=== PATIENT | female | born 1985 | race Caucasian/White ===

== ENCOUNTER → 2019-05-23 09:46 | Outpatient (BNVA) | payer MEDICAID, SELFPAY | PROVIDERS: Visit Provider Social Worker Clinical | DX: F33.2 Major depressive disorder, recurrent severe without psychotic features (principal); F41.0 Panic disorder [episodic paroxysmal anxiety]; Z63.0 Problems in relationship with spouse or partner | CPT/HCPCS: 90791; H0036 ==

== ENCOUNTER → 2019-06-15 13:10 | Outpatient (BNVA) | payer MEDICAID, SELFPAY | PROVIDERS: PCP Family Medicine; Visit Provider Social Worker Clinical | DX: F33.2 Major depressive disorder, recurrent severe without psychotic features (principal); F41.0 Panic disorder [episodic paroxysmal anxiety]; Z63.0 Problems in relationship with spouse or partner | CPT/HCPCS: 90834 ==

== ENCOUNTER → 2019-07-28 16:40 | Outpatient (BNVA) | payer MEDICAID, SELFPAY | PROVIDERS: PCP Family Medicine; Visit Provider Obstetrics & Gynecology | DX: B37.3 Candidiasis of vulva and vagina (principal); N87.0 Mild cervical dysplasia | CPT/HCPCS: 87210; 88175 ==

== ENCOUNTER → 2019-08-08 15:00 | Outpatient (BNVA) | payer MEDICAID, SELFPAY | PROVIDERS: PCP Family Medicine; Visit Provider Counselor Professional | DX: F32.9 Major depressive disorder, single episode, unspecified (principal); T74.11XA Adult physical abuse, confirmed, initial encounter; T74.91XA Unspecified adult maltreatment, confirmed, initial encounter | CPT/HCPCS: 90834 ==

== ENCOUNTER → 2019-10-05 14:44 | Outpatient (BNVA) | payer MEDICAID, SELFPAY | PROVIDERS: PCP Family Medicine; Visit Provider Psychiatry & Neurology Psychiatry | DX: F60.9 Personality disorder, unspecified (principal); F33.2 Major depressive disorder, recurrent severe without psychotic features; F43.12 Post-traumatic stress disorder, chronic | CPT/HCPCS: 99204 ==

== ENCOUNTER → 2019-11-01 07:43 | Outpatient (BNVA) | payer MEDICAID, SELFPAY | PROVIDERS: PCP Family Medicine; Visit Provider Psychiatry & Neurology Psychiatry | DX: F43.12 Post-traumatic stress disorder, chronic (principal); F33.2 Major depressive disorder, recurrent severe without psychotic features; F60.9 Personality disorder, unspecified | CPT/HCPCS: 99213 ==

== ENCOUNTER → 2019-12-12 08:13 | Outpatient (BNVA) | payer MEDICAID, SELFPAY | PROVIDERS: PCP Family Medicine; Visit Provider Counselor Professional | DX: F43.12 Post-traumatic stress disorder, chronic (principal); F33.2 Major depressive disorder, recurrent severe without psychotic features; F60.9 Personality disorder, unspecified | CPT/HCPCS: 90834 ==

== ENCOUNTER → 2019-12-29 09:13 | Outpatient (BNVA) | payer MEDICAID, SELFPAY | PROVIDERS: PCP Family Medicine; Visit Provider Psychiatry & Neurology Psychiatry | DX: F43.12 Post-traumatic stress disorder, chronic (principal); F33.2 Major depressive disorder, recurrent severe without psychotic features; F60.9 Personality disorder, unspecified | CPT/HCPCS: 99214 ==

== ENCOUNTER → 2020-01-09 10:10 | Outpatient (BNVA) | payer MEDICAID, SELFPAY | PROVIDERS: PCP Family Medicine; Visit Provider Counselor Professional | DX: F43.12 Post-traumatic stress disorder, chronic (principal); F33.2 Major depressive disorder, recurrent severe without psychotic features; F60.9 Personality disorder, unspecified | CPT/HCPCS: 90834 ==

== ENCOUNTER → 2020-01-10 09:36 | Outpatient (BNVA) | payer MEDICAID, SELFPAY | PROVIDERS: PCP Family Medicine; Visit Provider Psychiatry & Neurology Psychiatry | DX: F43.12 Post-traumatic stress disorder, chronic (principal); F33.2 Major depressive disorder, recurrent severe without psychotic features; F60.9 Personality disorder, unspecified | CPT/HCPCS: 99213 ==

== ENCOUNTER → 2020-01-16 08:56 | Outpatient (BNVA) | payer MEDICAID, SELFPAY | PROVIDERS: PCP Family Medicine; Visit Provider Counselor Professional | DX: F60.3 Borderline personality disorder (principal); F33.2 Major depressive disorder, recurrent severe without psychotic features | CPT/HCPCS: 90834 ==

== ENCOUNTER → 2020-02-20 08:12 | Outpatient (BNVA) | payer MEDICAID, SELFPAY | PROVIDERS: PCP Family Medicine; Visit Provider Psychiatry & Neurology Psychiatry | DX: F43.12 Post-traumatic stress disorder, chronic (principal); F33.2 Major depressive disorder, recurrent severe without psychotic features; F60.3 Borderline personality disorder; F17.210 Nicotine dependence, cigarettes, uncomplicated | CPT/HCPCS: 99214 ==

== ENCOUNTER → 2020-03-06 07:40 | Outpatient (BNVA) | payer MEDICAID, SELFPAY | PROVIDERS: PCP Family Medicine; Visit Provider Psychiatry & Neurology Psychiatry | DX: F60.3 Borderline personality disorder (principal); F43.12 Post-traumatic stress disorder, chronic; F33.2 Major depressive disorder, recurrent severe without psychotic features | CPT/HCPCS: 99213 ==

== ENCOUNTER → 2020-03-13 14:05 | Outpatient (BNVA) | payer MEDICAID, SELFPAY | PROVIDERS: PCP Family Medicine; Visit Provider Counselor Professional | DX: F33.2 Major depressive disorder, recurrent severe without psychotic features (principal); F60.3 Borderline personality disorder | CPT/HCPCS: 90834 ==

== ENCOUNTER → 2020-03-20 16:04 | Outpatient (BNVA) | payer MEDICAID, SELFPAY | PROVIDERS: PCP Family Medicine; Visit Provider Counselor Professional | DX: F60.3 Borderline personality disorder (principal); F33.2 Major depressive disorder, recurrent severe without psychotic features | CPT/HCPCS: 90832 ==

== ENCOUNTER → 2020-03-28 15:03 | Outpatient (BNVA) | payer MEDICAID, SELFPAY | PROVIDERS: PCP Family Medicine; Visit Provider Counselor Professional | DX: F60.3 Borderline personality disorder (principal); F33.2 Major depressive disorder, recurrent severe without psychotic features | CPT/HCPCS: 90832 ==

== ENCOUNTER → 2020-04-05 08:08 | Outpatient (BNVA) | payer MEDICAID, SELFPAY | PROVIDERS: PCP Family Medicine; Visit Provider Psychiatry & Neurology Psychiatry | DX: F60.3 Borderline personality disorder (principal); F43.12 Post-traumatic stress disorder, chronic; F33.2 Major depressive disorder, recurrent severe without psychotic features; F41.1 Generalized anxiety disorder | CPT/HCPCS: 99214 ==

== ENCOUNTER → 2020-05-03 10:05 | Outpatient (BNVA) | payer MEDICAID, SELFPAY | PROVIDERS: PCP Family Medicine; Visit Provider Counselor Professional | DX: F60.3 Borderline personality disorder (principal); F33.2 Major depressive disorder, recurrent severe without psychotic features | CPT/HCPCS: 90832 ==

== ENCOUNTER → 2020-06-07 08:14 | Outpatient (BNVA) | payer MEDICAID, SELFPAY | PROVIDERS: PCP Family Medicine; Visit Provider Psychiatry & Neurology Psychiatry | DX: F60.3 Borderline personality disorder (principal); F43.12 Post-traumatic stress disorder, chronic; F33.2 Major depressive disorder, recurrent severe without psychotic features | CPT/HCPCS: 99214 ==

== ENCOUNTER → 2020-06-20 09:19 | Outpatient (BNVA) | payer MEDICAID, SELFPAY | PROVIDERS: PCP Family Medicine; Visit Provider Counselor Professional | DX: F60.3 Borderline personality disorder (principal); F33.2 Major depressive disorder, recurrent severe without psychotic features | CPT/HCPCS: 90832 ==

== ENCOUNTER → 2020-07-17 15:04 | Outpatient (BNVA) | payer MEDICAID, SELFPAY | PROVIDERS: PCP Family Medicine; Visit Provider Counselor Professional | DX: F60.3 Borderline personality disorder (principal); F33.2 Major depressive disorder, recurrent severe without psychotic features | CPT/HCPCS: 90832 ==

== ENCOUNTER → 2020-07-19 07:50 | Outpatient (BNVA) | payer MEDICAID, SELFPAY | PROVIDERS: PCP Family Medicine; Visit Provider Psychiatry & Neurology Psychiatry | DX: F60.3 Borderline personality disorder (principal); F43.12 Post-traumatic stress disorder, chronic; F33.2 Major depressive disorder, recurrent severe without psychotic features | CPT/HCPCS: 99214 ==

== ENCOUNTER → 2020-08-02 14:15 | Outpatient (BNVA) | payer MEDICAID, SELFPAY | PROVIDERS: PCP Family Medicine; Visit Provider Obstetrics & Gynecology | DX: N89.8 Other specified noninflammatory disorders of vagina (principal); R11.0 Nausea; N76.0 Acute vaginitis; B96.89 Other specified bacterial agents as the cause of diseases classified elsewhere | CPT/HCPCS: 87210 ==

== ENCOUNTER → 2020-08-05 16:04 | Outpatient (BNVA) | payer MEDICAID, SELFPAY | PROVIDERS: PCP Family Medicine; Visit Provider Counselor Professional | DX: F60.3 Borderline personality disorder (principal); F33.2 Major depressive disorder, recurrent severe without psychotic features | CPT/HCPCS: 90834 ==

== ENCOUNTER → 2020-08-30 10:47 | Outpatient (BNVA) | payer MEDICAID, SELFPAY | PROVIDERS: PCP Family Medicine; Visit Provider Psychiatry & Neurology Psychiatry | DX: F60.3 Borderline personality disorder (principal); F43.12 Post-traumatic stress disorder, chronic; F33.2 Major depressive disorder, recurrent severe without psychotic features | CPT/HCPCS: 99214 ==

== ENCOUNTER → 2020-10-01 11:03 | Outpatient (BNVA) | payer MEDICAID, SELFPAY | PROVIDERS: PCP Family Medicine; Visit Provider Psychiatry & Neurology Psychiatry | DX: F60.3 Borderline personality disorder (principal); F43.12 Post-traumatic stress disorder, chronic; F33.2 Major depressive disorder, recurrent severe without psychotic features | CPT/HCPCS: 99214 ==

== ENCOUNTER → 2021-04-02 07:55 | Outpatient (BNVA) | payer MEDICAID, SELFPAY | PROVIDERS: PCP Family Medicine; Visit Provider Psychiatry & Neurology Psychiatry | DX: F33.2 Major depressive disorder, recurrent severe without psychotic features (principal); F43.12 Post-traumatic stress disorder, chronic; F60.3 Borderline personality disorder | CPT/HCPCS: 99213 ==

== ENCOUNTER → 2021-08-07 10:33 | Outpatient (BNVA) | payer MEDICAID, SELFPAY | PROVIDERS: PCP Family Medicine; Visit Provider Psychiatry & Neurology Psychiatry | DX: F33.2 Major depressive disorder, recurrent severe without psychotic features (principal); F43.12 Post-traumatic stress disorder, chronic; F60.3 Borderline personality disorder | CPT/HCPCS: 99214 ==

== ENCOUNTER → 2021-11-05 12:06 | Outpatient (BNVA) | payer MEDICAID, SELFPAY | PROVIDERS: PCP Family Medicine; Visit Provider Psychiatry & Neurology Psychiatry | DX: F33.2 Major depressive disorder, recurrent severe without psychotic features (principal); F43.12 Post-traumatic stress disorder, chronic; F60.3 Borderline personality disorder | CPT/HCPCS: 99213 ==

== ENCOUNTER 2022-12-22 23:04 | Emergency (ER) | payer BC, MEDICAID, SELFPAY ==
[2022-12-22 23:13] VITALS: BP 121/68; PULSE 99; RESP 16; TEMP 37; O2SAT 96; BMI 28.1
[2022-12-23 01:27] LABS: Add Urine Culture? No; Add Urine Microscopic? YES; Bacteria Urine 2+ /hpf; Bilirubin Urine Neg (Negative); Blood Urine Trace (Negative); Calcium Oxalate Crystals Urine 0-4 /hpf; Glucose Urine UA Norm (Normal); Ketones Urine Negative (Negative); Leukocyte Esterase Urine Trace (Negative); Mucus Urine 2+ /hpf; Nitrate Urine Negative (Negative); Protein Urine Neg (Negative); RBC Urine 0-4 /hpf (0-2); Specific Gravity, Urine 1.025 (1.005-1.030); Urine Appearance Clear (CLEAR); Urine Color Yellow (Yellow); Urobilinogen Urine Neg (Negative); WBC Urine 0-4 /hpf (0-5); pH Urine 5 (5-7)
[2022-12-23] MEDS: ketorolac 30 mg/mL INJ IM (02:49)
[2022-12-23] MEDS: orphenadrine 30 mg/mL Inj 2 mL 60 MG IM (02:50)
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
[2022-12-23 02:57] VITALS: BP 121/68; PULSE 99; RESP 16; TEMP 37; O2SAT 96
== END 2022-12-23 02:57 | disposition home or self-care (01) ==
PROVIDERS: Emergency Provider Emergency Medicine; PCP Family Medicine
DX: S16.1XXA Strain of muscle, fascia and tendon at neck level, initial encounter (principal); S29.012A Strain of muscle and tendon of back wall of thorax, initial encounter; J45.909 Unspecified asthma, uncomplicated; Z79.899 Other long term (current) drug therapy; Z87.891 Personal history of nicotine dependence; Y04.2XXA Assault by strike against or bumped into by another person, initial encounter
CPT/HCPCS: 81001; 96372; 99284; J1885; J2360

== ENCOUNTER 2024-01-30 21:38 | Inpatient (IN) | payer BC, MEDICAID, SELFPAY ==
[2024-01-30 21:44] VITALS: PULSE 123; RESP 32; TEMP 36.7; O2SAT 93
--- NOTE | 2024-01-30 21:52 | XRR_ITS ---
PROCEDURE INFORMATION: Exam: XR Chest Exam date and time: 01/30/2024 10:11 PM Age: 39 years old Clinical indication: Cough and shortness of breath; Patient HX: Cough with SOB. History of asthma. TECHNIQUE: Imaging protocol: Radiologic exam of the chest. Views: 1 view. COMPARISON: CR XR chest 2V* [id number] 10/07/2017 6:35 PM FINDINGS: Lungs: No definitive consolidation. Mild increased retrocardiac opacity may be artifactual. Pleural spaces: No pleural effusion or pneumothorax. Heart/Mediastinum: The cardiomediastinal silhouette is within normal limits. Bones/joints: No acute osseous abnormalities are seen. XR/XR chest 1V portable [id number] IMPRESSION: Mild increased retrocardiac opacity may be artifactual. Developing consolidation could have this appearance. Follow-up as indicated.
[2024-01-30 21:58] VITALS: PULSE 106; RESP 28; O2SAT 97
[2024-01-30] MEDS: ipratropium-albuterol 3 mL Neb INHALATION (21:58)
--- NOTE | 2024-01-30 22:10 | ECG_ITS ---
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 Measurements Intervals [place] Rate: 106 P: 78 [place]: 137 QRS: 74 QRSD: 81 T: 52 QT: 317 QTc: 422 Interpretive Statements SINUS TACHYCARDIA POSSIBLE LEFT ATRIAL ENLARGEMENT [-0.1mV P-WAVE IN V1/V2] MINIMAL ST DEPRESSION [0.025+ mV ST DEPRESSION] No previous ECG available for comparison Electronically Signed On 01-31-2024 16:07:27 CDT by Babak Nagy M.D. [id number]
--- NOTE | 2024-01-30 22:10 | ECG_ITS ---
[facility] Test Date: 2024-01-30 Pat Name: Eladia Gonzalez Department: Room: Gender: Female General Administrator: : 1985 Requested By: Poncho Bai Order Number: [id number] Reading MD: Measurements Intervals [place] Rate: 106 P: 78 [place]: 137 QRS: 74 QRSD: 81 T: 52 QT: 317 QTc: 422 Interpretive Statements SINUS TACHYCARDIA POSSIBLE LEFT ATRIAL ENLARGEMENT [-0.1mV P-WAVE IN V1/V2] MINIMAL ST DEPRESSION [0.025+ mV ST DEPRESSION] ABNORMAL RHYTHM ECG No previous ECG available for comparison [id number]
[2024-01-30] MEDS: methylPREDNISolone sod succ 125 mg/2 mL INJ IVP (22:13)
[2024-01-30] MEDS: ondansetron 2 mg/ML SDV 2 mL 4 MG IVP (22:13)
[2024-01-30] MEDS: morphine 4 mg/mL SDV 1 mL IVP (22:13)
[2024-01-30] MEDS: magnesium sulfate premix 2 GM/50 ML PIGGYBACK IV (22:16)
[2024-01-30 22:23] LABS: Basophils # 0.1 10^3/uL (0.0-0.1); Basophils % 0.4 %; Eosinophils # 0.2 10^3/uL (0.0-0.8); Hematocrit 39.6 % (36-47); Lymphocytes # 3.3 10^3/uL (0.8-4.8); Lymphocytes % 22.2 %; Mean Corpuscular HGB Conc 32.3 g/dL (30-55); Mean Corpuscular Hemoglobin 28.1 pg (27-33); Mean Corpuscular Volume 86.8 fl (85-98); Mean Platelet Volume 10.5 fL (7.4-10.4); Monocytes # 0.9 10^3/uL (0.2-0.9); Monocytes % 6.2 %; Neutrophils # 10.28 10^3/uL (1.8-7.7); Neutrophils % 69.7 %; Nucleated Red Blood Cells % 0 %; Platelet Count 305 10^3/cmm (157-399); Red Blood Count 4.56 10^6/uL (3.85-5.65); Red Cell Distribution Width 14.6 % (12.1-15.1); White Blood Count 14.76 10^3/uL (3.29-11.43)
[2024-01-30 22:28] VITALS: BP 115/58; PULSE 92; RESP 22; O2SAT 97
--- NOTE | 2024-01-30 22:36 | W.ED.SOB ---
HPI - SOB/Dyspnea General: Chief Complaint: Shortness of Breath/Dyspnea Stated Complaint: sob Time Seen by Provider: 01/30/24 22:25 History of Present Illness: HPI Narrative: 39-year-old female evidently with a history of eosinophilic asthma. She has not had her normal injections for this in quite some time. She presents with 2 to 3 days of worsening shortness of breath, which is much worse tonight. She is wheezing, and in respiratory distress on presentation. She is quite anxious as well. She denies fever. Related Data Home Medications Medication Instructions Recorded Confirmed albuterol sulfate 90 mcg/actuation 2 puff inhalation 6XD 05/23/19 10/16/23 aerosol inhaler (ProAir HFA) tiotropium bromide 1.25 2 puff inhalation BID 10/05/19 10/16/23 mcg/actuation mist for inhalation (Spiriva Respimat) fluticasone 500 mcg-salmeterol 50 1 inh inhalation BID 08/02/20 10/16/23 mcg/dose blistr powdr for inhalation (Advair Diskus) CPAP 04/01/21 10/16/23 dupilumab 300 mg/2 mL subcutaneous mg SUBCUT .Twice Monthly 04/01/21 10/16/23 pen injector (Dupixent) oxybutynin chloride 5 mg tablet 5 mg PO DAILY 08/07/21 10/16/23 propranolol 20 mg tablet 10 mg PO BID 08/07/21 10/16/23 Previous Rx's Medication Instructions Recorded promethazine 25 mg tablet 25 mg PO BID #14 tabs 08/02/20 duloxetine 60 mg capsule,delayed 60 mg PO DAILY #30 caps 08/07/21 release mirtazapine 7.5 mg tablet 7.5 mg PO .HS #30 tabs 08/07/21 hydroxyzine HCl 50 mg tablet 50 mg PO QID PRN anxiety #120 tabs 11/05/21 lamotrigine 100 mg tablet 100 mg PO BID #60 tabs 11/05/21 prazosin 5 mg capsule 5 mg PO .HS #30 caps 11/05/21 meloxicam 7.5 mg tablet 7.5 mg PO BID #14 tabs 12/23/22 orphenadrine citrate 100 mg 100 mg PO BID #14 tabs 12/23/22 tablet,extended release azithromycin 250 mg tablet See Rx Instructions PO .COMPLEX #6 06/01/24 (Zithromax Z-Enrique) tabs ibuprofen 800 mg tablet 800 mg PO Q8H PRN pain #30 tabs 10/16/23 prednisone 20 mg tablet 60 mg (3 x 20 mg) PO DAILY 5 days 10/16/23 #15 tabs Allergies Allergy/AdvReac Type Severity Reaction Status Date / Time amoxicillin Allergy Intermediate ADR-Vomitin Verified 01/30/24 22:20 g clindamycin Allergy Intermediate ALGY-Hives Verified 01/30/24 22:20 diphenhydramine Allergy Intermediate ALGY-Hives Verified 01/30/24 22:20 escitalopram Allergy Intermediate ADR-Dizzine Verified 01/30/24 22:20 ss fluoxetine [From Prozac] Allergy Intermediate Noxious Verified 01/30/24 22:20 gabapentin Allergy Intermediate Noxious Verified 01/30/24 22:20 Penicillins Allergy Intermediate ADR-Vomitin Verified 01/30/24 22:20 g Sulfa (Sulfonamide Allergy Intermediate ALGY-Hives Verified 01/30/24 22:20 Antibiotics) PFSH ED PFSH: Medical History Borderline personality disorder Post-traumatic stress disorder, chronic Major depressive disorder, recurrent severe without psychotic features Unspecified personality disorder Blood type O- Cervical intraepithelial neoplasia I 07/2019: Negative with negative HR HPV. 07/20/2018: NILM/negative HR HPV 11/05/2017: Colposcopy with ECC. Path showed JUDIT-1. 09/24/2017: ASCUS with positive HR HPV. 03/18/2017: ASCUS with positive HR HPV. 09/21/2016: Colposcopy with negative findings. No biopsies. 03/09/2016: Low-grade IVETH (Dr. Walter). 03/08/2014: Negative for intraepithelial lesion or malignancy. 04/2011: LEEP performed in [place], [place]. Reports has a history of abnormal Paps. Asthma Surgical History History of section, low transverse (01/29/17) Repeat LTCS. Performed by Dr. Taveras at [facility] in [place], [place]. History of section, low transverse (01/25/14) Nonreassuring heart tones. Performed by Dr. Washington at [facility] in [place], [place]. Documented low transverse incision of the uterus with a 2 layer closure. History of loop electrical excision procedure (LEEP) (~04/2011) Preformed in [place], [place]. Normal per patient. Family History Grandmother Breast cancer maternal Diabetes maternal Mother Hypertension Sister Thyroid disease Cervical cancer Grandfather , Maternal. age 80 Lung cancer Social History Smoking and tobacco/nicotine status: former use of tobacco/nicotine Quit status (tobacco/nicotine): has quit using Year quit tobacco: 2021 Second hand smoke exposure: Yes Alcohol intake: current Alcohol intake frequency: few times a month Substance/Drug Use: never Physical Exam Const: GENERAL APPEARANCE: cooperative, in distress, anxious and ill appearing (Mildly); not frail appearing HENMT: COMMON NORMALS: normocephalic, atraumatic and Normal external nose present HEAD & SCALP: normocephalic and atraumatic FACE & SINUS: normal facial exam and face symmetric NOSE: Normal external nose present Eye: COMMON NORMALS: Equal, round and reactive pupils present and EOMs intact bilaterally PUPIL: Yes Equal, round and reactive pupils present Neck/C-Spine: GENERAL: Yes trachea midline Chest: CHEST: Yes Symmetrical chest wall rise Resp: EFFORT & INSPECTION: No able to speak in complete sentences, Yes labored, Yes Actively coughing and Yes retractions AUSCULTATION: wheezes and diminished lung sounds Cardio: COMMON NORMALS: regular rhythm RATE: tachycardic RHYTHM: regular rhythm GI: COMMON NORMALS: Normal to inspection, nondistended, normoactive bowel sounds present Extremity: COMMON NORMALS: no pedal edema Neuro: WILLIAM COMA SCALE: document GCS findings William coma scale eye opening: Spontaneous William coma scale verbal response: Orientated William coma scale motor response: Obey commands William coma scale total score: 15 SENSORY EXAM: Yes extremities (intact) Psych: COMMON NORMALS: speech normal SPEECH: Yes normal speech Course Vital Signs: Vital signs: Vital Signs Temperature 98.1 F 01/30/24 21:44 Pulse Rate 94 01/31/24 01:06 Respiratory Rate 22 H 01/31/24 00:42 Blood Pressure 116/94 01/31/24 01:06 Pulse Oximetry 91 01/31/24 01:06 Oxygen Delivery Me thod Nasal Cannula 01/31/24 00:39 Oxygen Flow Rate 3 01/31/24 00:39 MDM - SOB/Dyspnea Medical Decision Making Respiratory status is much improved after DuoNeb treatment here, Solu-Medrol, magnesium, and morphine for air hunger/anxiety. She is on 3 L, currently satting 97%. She is normotensive. Chest x-ray fails to reveal infiltrate. No effusions or pneumothorax. Currently patient is oxygen down to 2 L. Saturations fell to 90% with increased respirations and work of breathing. She was given another albuterol treatment with some improvement. Potassium is 3.1, which is repleted. Chest x-ray reveals likely artifactual retrocardiac opacity. Her lactic acid is 3. BMP is not remarkable. Urine drug screen is positive for amphetamines. She was given opiates on arrival for air hunger. Urinalysis shows small amount of hematuria. Given the fact that she presented to an outside hospital within the last 24 hours, and had to return, is requiring oxygen now, and has had multiple interventions for bronchospasm and is still wheezing, she will be observed. Hospitalist is aware and will see the patient Lab Data 01/30/24 22:05 01/30/24 22:05 Labs/Radiology: Radiology Impressions Chest X-Ray 01/30/24 21:52 IMPRESSION: Mild increased retrocardiac opacity may be artifactual. Developing consolidation could have this appearance. Follow-up as indicated. Laboratory Results WBC 14.76 10^3/uL (3.29-11.43) H 01/30/24 22:05 RBC 4.56 10^6/uL (3.85-5.65) 01/30/24 22:05 Hgb 12.80 g/dL (11.27-16.99) 01/30/24 22:05 Hct 39.6 % (36-47) 01/30/24 22:05 MCV 86.8 fl (85-98) 01/30/24 22:05 MCH 28.1 pg (27-33) 01/30/24 22:05 MCHC 32.3 g/dL (30-55) 01/30/24 22:05 RDW 14.6 % (12.1-15.1) 01/30/24 22:05 Plt Count 305 10^3/cmm (157-399) 01/30/24 22:05 MPV 10.5 fL (7.4-10.4) H 01/30/24 22:05 Neut % (Auto) 69.7 % 01/30/24 22:05 Lymph % (Auto) 22.2 % 01/30/24 22:05 [place] % (Auto) 6.2 % 01/30/24 22:05 Eos % (Auto) 1.0 % 01/30/24 22:05 Baso % (Auto) 0.4 % 01/30/24 22:05 Neut # (Auto) 10.28 10^3/uL (1.8-7.7) H 01/30/24 22:05 Lymph # (Auto) 3.3 10^3/uL (0.8-4.8) 01/30/24 22:05 [place] # (Auto) 0.9 10^3/uL (0.2-0.9) 01/30/24 22:05 Eos # (Auto) 0.2 10^3/uL (0.0-0.8) 01/30/24 22:05 Baso # (Auto) 0.1 10^3/uL (0.0-0.1) 01/30/24 22:05 Nucleated RBC % (auto) 0 % 01/30/24 22:05 Nucleated RBCs # 0.0 /100WBC 01/30/24 22:05 Sodium 141 mmol/L (136-145) 01/30/24 22:05 Potassium 3.1 mmol/L (3.5-5.1) L 01/30/24 22:05 Chloride 101 mmol/L (98-107) 01/30/24 22:05 Carbon Dioxide 28 mmol/L (22-29) 01/30/24 22:05 Anion Gap 15.1 (5-19) 01/30/24 22:05 BUN 11 mg/dL (6-20) 01/30/24 22:05 Creatinine 0.7 mg/dL (0.5-0.9) 01/30/24 22:05 GFR Calculation 93.2 mL/min (90-130) 01/30/24 22:05 Glucose 94 mg/dL (65-115) 01/30/24 22:05 Calculated Osmolality 291 mOsm/kg (285-295) 01/30/24 22:05 Lactic Acid 3.0 mmol/L (0.5-2.2) H 01/30/24 22:05 Calcium 9.0 mg/dL (8.5-10.5) 01/30/24 22:05 Total Bilirubin 0.2 mg/dL (0.15-1.2) 01/30/24 22:05 AST 17 U/L (0-32) 01/30/24 22:05 ALT 16 U/L (0-33) 01/30/24 22:05 Alkaline Phosphatase 85 U/L (35-105) 01/30/24 22:05 NT-Pro-B Natriuret Pep 274 pg/mL (0-125) H 01/30/24 22:05 Total Protein 7.2 g/dL (6.6-8.7) 01/30/24 22:05 Albumin 4.5 g/dL (3.5-5.2) 01/30/24 22:05 Globulin 2.7 g/dL (1.3-4.6) 01/30/24 22:05 Urine Color Yellow (Yellow) 01/30/24 22:52 Urine Appearance Slightly cloudy (CLEAR) 01/30/24 22:52 Urine pH 5 (5-7) 01/30/24 22:52 Ur Specific [place] 1.015 (1.005-1.030) 01/30/24 22:52 Urine Protein Neg (Negative) 01/30/24 22:52 Urine Glucose (UA) Norm (Normal) 01/30/24 22:52 Urine Ketones Negative (Negative) 01/30/24 22:52 Urine Blood Neg (Negative) 01/30/24 22:52 Urine Nitrate Positive (Negative) A 01/30/24 22:52 Urine Bilirubin Neg (Negative) 01/30/24 22:52 Urine Urobilinogen Norm mg/dL (Negative) 01/30/24 22:52 Ur Leukocyte Esterase Trace (Negative) H 01/30/24 22:52 Urine RBC 10-15 /hpf (0-2) H 01/30/24 22:52 Urine WBC 0-4 /hpf (0-5) H 01/30/24 22:52 Ur Squamous Epith Cells 0-4 /hpf (0-5) H 01/30/24 22:52 Amorphous Sediment Not Reportable 01/30/24 22:52 Urine Bacteria 2+ /hpf (NONE) H 01/30/24 22:52 Urine Opiates Screen Positive ng/mL (Negative) H 01/30/24 22:52 Ur Barbiturates Screen Negative ng/mL (Negative) 01/30/24 22:52 Ur Phencyclidine Scrn Negative ng/mL (Negative) 01/30/24 22:52 Ur Amphetamines Screen Positive ng/mL (Negative) H 01/30/24 22:52 U Benzodiazepines Scrn Negative ng/mL (Negative) 01/30/24 22:52 Urine Cocaine Screen Negative ng/mL (Negative) 01/30/24 22:52 U Marijuana (THC) Screen Negative ng/mL (Negative) 01/30/24 22:52 Coronavirus (PCR) Negative (Negative) 01/30/24 22:05 Influenza A (PCR) Negative (Negative) 01/30/24 22:05 Influenza Type B (PCR) Negative (Negative) 01/30/24 22:05 RSV (PCR) Negative (Negative) 01/30/24 22:05 All radiology interpretation(s) finalized by discharge Discharge Plan Discharge Patient Disposition: Placed in Observation Admit Provider: Richardson Montesinos Clinical Impression: Acute asthma exacerbation, Acute hypoxemic respiratory failure Coding Level of Care Code ED Rn Baby for Elo Foote
[2024-01-30 22:51] LABS: Alanine Aminotransferase 16 U/L (0-33); Albumin Level 4.5 g/dL (3.5-5.2); Alkaline Phosphatase 85 U/L (35-105); Anion Gap 15.1 (5-19); Aspartate Amino Transferase 17 U/L (0-32); Blood Urea Nitrogen 11 mg/dL (6-20); Carbon Dioxide 28 mmol/L (22-29); Chloride 101 mmol/L (98-107); Creatinine Clr Calc Pharmacy 109.9895; Globulin 2.7 g/dL (1.3-4.6); Glomerular Filtration Rate 93.2 mL/min (90-130); Glucose 94 mg/dL (65-115); NT Pro B Type Natriuretic Pept 274 pg/mL (0-125); Osmolality Calculated 291 mOsm/kg (285-295); Potassium 3.1 mmol/L (3.5-5.1); Sodium 141 mmol/L (136-145); Total Bilirubin 0.2 mg/dL (0.15-1.2); Total Protein 7.2 g/dL (6.6-8.7)
[2024-01-30 23:07] LABS: Covid PCR NEGATIVE (Negative); Influenza A NEGATIVE (Negative); Influenza B NEGATIVE (Negative); Respiratory Syncytial Virus Ce NEGATIVE (Negative)
[2024-01-30 23:09] LABS: Bilirubin Urine Neg (Negative); Blood Urine Neg (Negative); Glucose Urine UA Norm (Normal); Ketones Urine Negative (Negative); Leukocyte Esterase Urine Trace (Negative); Nitrate Urine Positive (Negative); Protein Urine Neg (Negative); Specific Gravity, Urine 1.015 (1.005-1.030); Urine Appearance Slightly Cloudy (CLEAR); Urine Color Yellow (Yellow); Urobilinogen Urine Norm (Negative); pH Urine 5 (5-7)
[2024-01-30 23:10] LABS: Add Urine Culture? Yes; Bacteria Urine 2+ /hpf; Squamous Epithelial Cell Urine 0-4 /hpf (0-5); WBC Urine 0-4 /hpf (0-5)
[2024-01-30 23:13] VITALS: BP 114/51; PULSE 89; RESP 20; O2SAT 94
[2024-01-30] MEDS: albuterol 2.5 mg/3 mL Neb INHALATION (23:22)
[2024-01-30] MEDS: potassium chloride ER 20 mEq Tablet PO (23:22)
[2024-01-30 23:23] VITALS: PULSE 105; RESP 24; O2SAT 97
[2024-01-30 23:50] LABS: Amphetamines Screen Urine Positive (Negative); Barbiturates Screen Urine Negative (Negative); Benzodiazepines Screen Urine Negative (Negative); Cocaine Screen Urine Negative (Negative); Opiate Screen Urine Positive (Negative); PCP Screen Urine Negative (Negative); THC Screen Urine Negative (Negative)
--- NOTE | 2024-01-30 23:55 | P.HP_ITS ---
Providers/Chief Complaint 2 Primary Care Provider: Antonia Avila DO Chief Complaint: sob History of Present Illness Eladia Gonzalez is a 39 year old female with a past medical history significant for asthma, borderline personality disorder, posttraumatic stress disorder, major depressive disorder, and multiple other comorbidities who presents emergency department with shortness of breath. Patient reports onset 3 days ago. She endorses associated cough and chest tightness. Exertion worsens symptoms. Rest improves. She reports she was seen at outside emergency department last night for similar complaints. Upon presentation to the ER, she was found to be in respiratory distress. Vitals were significant for tachycardia and tachypnea. Patient found to be in respiratory distress on physical exam with diffuse wheezing. Per ED provider, patient requiring 2 to 3 L of oxygen. She reports a history of prior asthma. She was on Dupixent but has been off of it for almost a year due to issues obtaining the medication. She has a history of smoking menthol cigarettes. She reports that she is quit smoking. She denies smoking any substances. Her UDS is positive for opiates and amphetamines. Chest x-ray was concerning for retrocardiac opacity. Review of Systems 2 Narrative: A complete review of systems was obtained and is negative except as stated in HPI. Medications/Allergies Home Medications Medication Instructions Recorded Confirmed Last Taken Type albuterol sulfate 90 mcg/actuation 2 puff inhalation 6XD 05/23/19 10/16/23 Unknown History aerosol inhaler (ProAir HFA) tiotropium bromide 1.25 2 puff inhalation BID 10/05/19 10/16/23 Unknown History mcg/actuation mist for inhalation (Spiriva Respimat) fluticasone 500 mcg-salmeterol 50 1 inh inhalation BID 08/02/20 10/16/23 Unknown History mcg/dose blistr powdr for inhalation (Advair Diskus) promethazine 25 mg tablet 25 mg PO BID #14 tabs 08/02/20 10/16/23 Unknown Rx CPAP 04/01/21 10/16/23 Unknown History dupilumab 300 mg/2 mL subcutaneous mg SUBCUT .Twice Monthly 04/01/21 10/16/23 Unknown History pen injector (Dupixent) duloxetine 60 mg capsule,delayed 60 mg PO DAILY #30 caps 08/07/21 10/16/23 Unknown Rx release mirtazapine 7.5 mg tablet 7.5 mg PO .HS #30 tabs 08/07/21 10/16/23 Unknown Rx oxybutynin chloride 5 mg tablet 5 mg PO DAILY 08/07/21 10/16/23 Unknown History propranolol 20 mg tablet 10 mg PO BID 08/07/21 10/16/23 Unknown History hydroxyzine HCl 50 mg tablet 50 mg PO QID PRN anxiety #120 tabs 11/05/21 10/16/23 Unknown Rx lamotrigine 100 mg tablet 100 mg PO BID #60 tabs 11/05/21 10/16/23 Unknown Rx prazosin 5 mg capsule 5 mg PO .HS #30 caps 11/05/21 10/16/23 Unknown Rx meloxicam 7.5 mg tablet 7.5 mg PO BID #14 tabs 12/23/22 10/16/23 Unknown Rx orphenadrine citrate 100 mg 100 mg PO BID #14 tabs 12/23/22 10/16/23 Unknown Rx tablet,extended release azithromycin 250 mg tablet See Rx Instructions PO .COMPLEX #6 10/16/23 10/16/23 Unknown Rx (Zithromax Z-Enrique) tabs ibuprofen 800 mg tablet 800 mg PO Q8H PRN pain #30 tabs 10/16/23 10/16/23 Unknown Rx prednisone 20 mg tablet 60 mg (3 x 20 mg) PO DAILY 5 days 10/16/23 10/16/23 Unknown Rx #15 tabs Allergies Allergy/AdvReac Type Severity Reaction Status Date / Time amoxicillin Allergy Intermediate ADR-Vomitin Verified 01/30/24 22:20 g clindamycin Allergy Intermediate ALGY-Hives Verified 01/30/24 22:20 diphenhydramine Allergy Intermediate ALGY-Hives Verified 01/30/24 22:20 escitalopram Allergy Intermediate ADR-Dizzine Verified 01/30/24 22:20 ss fluoxetine [From Prozac] Allergy Intermediate Noxious Verified 01/30/24 22:20 gabapentin Allergy Intermediate Noxious Verified 01/30/24 22:20 Penicillins Allergy Intermediate ADR-Vomitin Verified 01/30/24 22:20 g Sulfa (Sulfonamide Allergy Intermediate ALGY-Hives Verified 01/30/24 22:20 Antibiotics) PFSH Acute 2 PFSH: Medical History Borderline personality disorder Post-traumatic stress disorder, chronic Major depressive disorder, recurrent severe without psychotic features Unspecified personality disorder Blood type O- Cervical intraepithelial neoplasia I 07/2019: Negative with negative HR HPV. 07/20/2018: NILM/negative HR HPV 11/05/2017: Colposcopy with ECC. Path showed JUDIT-1. 09/24/2017: ASCUS with positive HR HPV. 03/18/2017: ASCUS with positive HR HPV. 09/21/2016: Colposcopy with negative findings. No biopsies. 03/09/2016: Low-grade IVETH (Dr. Walter). 03/08/2014: Negative for intraepithelial lesion or malignancy. 04/2011: LEEP performed in [place], [place]. Reports has a history of abnormal Paps. Asthma Surgical History History of section, low transverse (01/29/17) Repeat LTCS. Performed by Dr. Taveras at [facility] in [place], [place]. History of section, low transverse (01/25/14) Nonreassuring heart tones. Performed by Dr. Washington at [facility] in [place], [place]. Documented low transverse incision of the uterus with a 2 layer closure. History of loop electrical excision procedure (LEEP) (~04/2011) Preformed in [place], [place]. Normal per patient. Family History Grandmother Breast cancer maternal Diabetes maternal Mother Hypertension Sister Thyroid disease Cervical cancer Grandfather , Maternal. age 80 Lung cancer Social History Smoking and tobacco/nicotine status: former use of tobacco/nicotine Quit status (tobacco/nicotine): has quit using Year quit tobacco: 2021 Second hand smoke exposure: Yes Alcohol intake: current Alcohol intake frequency: few times a month Substance/Drug Use: never Vitals/I&O/Wt Last Vital Signs Temp 98.1 F 01/30/24 21:44 Pulse 105 H 01/30/24 23:23 Resp 24 H 01/30/24 23:23 BP 114/51 01/30/24 23:13 Pulse Ox 97 01/30/24 23:23 O2 Del Method Nasal Cannula 01/30/24 23:23 O2 Flow Rate 2 01/30/24 23:23 01/30/24 01/30/24 01/31/24 14:59 22:59 06:59 Intake Total 50 / 50 Balance 50 / 50 Weight last 48 hrs Weight 79.379 kg Physical Exam 2 Narrative: General: Patient is awake. In moderate to severe respiratory distress. Head: Normocephalic. Atraumatic. EOM intact. Neck: No JVD. Cardiovascular: Tachycardic. No gallops. No murmurs. Lungs: Poor air movement throughout bilateral lung gunn. Diffuse wheezing. Cough present. No crackles. No rales. In respiratory distress. Using accessory muscles. Skin: No jaundice. No rashes. Abdomen: Normal bowel sounds, abdomen soft and nontender. Genito Urinary: Genital exam not performed since complaints not related. Rectal: Rectal exam not performed since no symptoms indicated blood loss. Extremities: No cyanosis or clubbing. Musculoskeletal: No swollen or erythematous joints. Neurological: Moves all 4 extremities. No myoclonus. Data 01/30/24 22:05 01/30/24 22:05 Micro: Microbiology 01/30/24 22:18 Blood Culture - Preliminary Blood SPECIMEN COLLECTED 01/30/24 22:05 Blood Culture - Preliminary Blood SPECIMEN COLLECTED A&P Assessment and plan (1) Acute asthma exacerbation: Acute asthma exacerbation 2/2 suspected left-sided community acquired pneumonia CXR w/ retrocardiac opacity Start Solumedrol Start ceftriaxone and azithromycin Check procal Sputum culture Encourage pullmonary toilet Supportive care (2) Urinary tract infection: Urinalysis consistent with acute complicated UTI Follow urine culture Start ceftriaxone (3) Hypokalemia: Status post replacement in ED Repeat electrolytes in AM (4) Major depressive disorder, recurrent severe without psychotic features: Continue home medications Start ativan PRN for severe anxiety (5) Polysubstance abuse: UDS positive for opioids and amphetamines Would benefit from cessation Plan DVT ppx: Lovenox Code status: Full Code Attestations 2 Medical Necessity Statement*: Patient presents with shortness of breath, found to have acute asthma exacerbation requiring oxygen, community acquired pneumonia and acute complicated UTI with expected hospitalization not cross two midnights for IV steroids, IV antibiotics, breathing treatments, respiratory support and supportive care. Coding Level of Care Code Acute Code for Chg Fwd Diagnoses Acute asthma exacerbation J45.901 Urinary tract infection N39.0 Hypokalemia E87.6 Major depressive disorder, recurrent severe without psychotic features F33.2 Polysubstance abuse F19.10
[2024-01-31] VITALS (17 sets, daily range): BP systolic 90–124; BP diastolic 48–94; PULSE 55–121; RESP 15–22; TEMP 36.6–36.9; O2SAT 90–96; BMI 27.6
[2024-01-31 00:08] LABS: Reflex Lactate Order REFLEX LACTIC ORDERD
[2024-01-31] MEDS: HYDROmorphone 1 mg/mL INJ 1 mL IVP (00:42)
[2024-01-31 01:18] LABS: Lactic Acid level (Lactate) 1.8 mmol/L (0.5-2.2)
[2024-01-31] MEDS: prazosin 5 mg Capsule PO (01:46)
[2024-01-31] MEDS: cefTRIAXone 1,000 mg SDV 1000 MG IVP (01:46)
[2024-01-31] MEDS: mirtazapine 15 mg Tablet 7.5 MG PO ×2 (01:46→20:45)
[2024-01-31] MEDS: LORazepam 1 mg Tablet PO (01:46)
[2024-01-31] MEDS: azithromycin 500 MG in sodium chloride 0.9% 250 ML 250 MG IV (02:05)
[2024-01-31 02:59] LABS: Procalcitonin 0.06 ng/mL (0-0.5)
[2024-01-31] MEDS: methylPREDNISolone sod succ 40 mg/mL INJ IVP ×3 (03:02→20:45)
[2024-01-31] MEDS: ondansetron 2 mg/ML SDV 2 mL 4 MG IVP (03:02)
[2024-01-31] MEDS: ipratropium-albuterol 3 mL Neb INHALATION ×6 (04:34→23:37)
[2024-01-31] MEDS: enoxaparin 40 mg/0.4 mL Syringe SUBCUT (05:26)
--- NOTE | 2024-01-31 07:59 | P.PN_ITS ---
Subjective 2 Subjective: History and physical reviewed. Patient sleeping when I went in the room. I visited with her fianc? regarding her illness as well, and reported to them that I would be back when she was more awake. Medications: Reviewed: Yes Vitals/I&O/Wt Last Vital Signs Temp 98.2 F 01/31/24 04:00 Pulse 55 L 01/31/24 07:30 Resp 20 H 01/31/24 07:30 BP 123/61 01/31/24 04:00 Pulse Ox 90 01/31/24 07:30 O2 Del Method Room Air 01/31/24 07:30 O2 Flow Rate 2 01/31/24 04:37 01/30/24 01/31/24 01/31/24 22:59 06:59 14:59 Intake Total 920 / 920 Balance 920 / 920 Weight last 48 hrs Weight 80.195 kg Weight 80.031 kg Weight 79.379 kg Physical Exam 2 Narrative: General Exam audible wheezing, when sleeping, expiratory Neck is supple Cardiovascular regular rate and rhythm Lungs expiratory wheezing, mild retractions Extremities no cyanosis clubbing or edema Data 01/30/24 22:05 01/30/24 22:05 Micro: Microbiology 01/30/24 22:18 Blood Culture - Preliminary Blood SPECIMEN COLLECTED 01/30/24 22:05 Blood Culture - Preliminary Blood SPECIMEN COLLECTED A&P Assessment and plan (1) Acute asthma exacerbation: Acute asthma exacerbation 2/2 suspected left-sided community acquired pneumonia CXR w/ retrocardiac opacity Continue Solumedrol Continue ceftriaxone and azithromycin Pro-Damien was normal COVID-negative Sputum culture pending Encourage pullmonary toilet. Initiate budesonide Supportive care (2) Urinary tract infection: Urinalysis consistent with acute complicated UTI Follow urine culture Continue ceftriaxone (3) Hypokalemia: Status post replacement in ED Repeat electrolytes in AM (4) Major depressive disorder, recurrent severe without psychotic features: Continue home medications Start ativan PRN for severe anxiety (5) Polysubstance abuse: UDS positive for opioids and amphetamines Would benefit from cessation Plan DVT ppx: Lovenox Code status: Full Code Attestations 2 Medical Necessity Statement*: Needs continued hospitalization secondary to asthma exacerbation requiring IV steroids frequent breathing treatments in this patient with severe underlying asthma Diagnoses Acute asthma exacerbation J45.901 Urinary tract infection N39.0 Hypokalemia E87.6 Major depressive disorder, recurrent severe without psychotic features F33.2 Polysubstance abuse F19.10 Time Spent (min) 23
[2024-01-31] MEDS: duloxetine 60 mg Capsule PO (10:38)
[2024-01-31] MEDS: oxybutynin 5 mg Tablet PO (10:38)
[2024-01-31] MEDS: lamoTRIgine 100 mg Tablet PO ×2 (10:38→16:52)
--- NOTE | 2024-01-31 13:47 | PC.PHAR ---
family member in room handed over 4 rx bottles to verify-stated they were the only meds pt takes. Left pt most current med list on chart with last fill dates.
[2024-01-31] MEDS: budesonide 0.5 mg/2 mL Neb INHALATION (21:05)
[2024-02-01] VITALS (15 sets, daily range): BP systolic 106–122; BP diastolic 54–70; PULSE 67–104; RESP 16–25; TEMP 36.3–36.9; O2SAT 87–99
[2024-02-01] MEDS: azithromycin 500 MG in sodium chloride 0.9% 250 ML 250 MG IV (02:19)
[2024-02-01] MEDS: cefTRIAXone 1,000 mg SDV 1000 MG IVP (02:20)
[2024-02-01] MEDS: ipratropium-albuterol 3 mL Neb INHALATION ×6 (03:58→23:48)
[2024-02-01] MEDS: enoxaparin 40 mg/0.4 mL Syringe SUBCUT (05:11)
[2024-02-01 05:56] LABS: Basophils % 0.1 %; Hematocrit 35.7 % (36-47); Lymphocytes # 1.3 10^3/uL (0.8-4.8); Lymphocytes % 10.6 %; Mean Corpuscular HGB Conc 31.1 g/dL (30-55); Mean Corpuscular Volume 90.2 fl (85-98); Mean Platelet Volume 10.6 fL (7.4-10.4); Monocytes # 0.4 10^3/uL (0.2-0.9); Monocytes % 3.1 %; Neutrophils # 10.17 10^3/uL (1.8-7.7); Neutrophils % 85.3 %; Nucleated Red Blood Cells % 0 %; Platelet Count 267 10^3/cmm (157-399); Red Blood Count 3.96 10^6/uL (3.85-5.65); Red Cell Distribution Width 14.1 % (12.1-15.1); White Blood Count 11.92 10^3/uL (3.29-11.43)
[2024-02-01 06:19] LABS: Anion Gap 11.4 (5-19); Blood Urea Nitrogen 15 mg/dL (6-20); Calcium 8.7 mg/dL (8.5-10.5); Carbon Dioxide 28 mmol/L (22-29); Chloride 106 mmol/L (98-107); Creatinine Clr Calc Pharmacy 138.4594; Glomerular Filtration Rate 111.3 mL/min (90-130); Glucose 143 mg/dL (65-115); Magnesium 2.4 mg/dL (1.7-2.3); Osmolality Calculated 295 mOsm/kg (285-295); Potassium 4.4 mmol/L (3.5-5.1); Sodium 141 mmol/L (136-145)
[2024-02-01] MEDS: budesonide 0.5 mg/2 mL Neb INHALATION ×2 (08:04→19:40)
[2024-02-01] MEDS: methylPREDNISolone sod succ 40 mg/mL INJ IVP ×2 (09:02→17:10)
[2024-02-01] MEDS: duloxetine 60 mg Capsule PO (09:03)
[2024-02-01] MEDS: oxybutynin 5 mg Tablet PO (09:03)
[2024-02-01] MEDS: lamoTRIgine 100 mg Tablet PO ×2 (09:03→17:10)
--- NOTE | 2024-02-01 15:18 | P.PN_ITS ---
Subjective 2 Subjective: Still wheezing quite a bit. Feels better than she did on admission. Reports a neighbor gave her some pills and that is why her urine drug screen is positive. Medications: Reviewed: Yes Vitals/I&O/Wt Last Vital Signs Temp 98.0 F 02/01/24 12:00 Pulse 98 02/01/24 12:00 Resp 18 02/01/24 12:00 BP 122/65 02/01/24 12:00 Pulse Ox 91 02/01/24 12:00 O2 Del Method Nasal Cannula 02/01/24 12:00 O2 Flow Rate 2 02/01/24 08:04 02/01/24 02/01/24 02/01/24 06:59 14:59 22:59 Intake Total 250 / 1054 360 / 360 Balance 250 / 1054 360 / 360 Weight last 48 hrs Weight 81.783 kg Weight 80.195 kg Weight 80.031 kg Weight 79.379 kg Physical Exam 2 Narrative: General Exam audible wheezing, when sleeping, expiratory Neck is supple Cardiovascular regular rate and rhythm Lungs expiratory wheezing, mild retractions Extremities no cyanosis clubbing or edema Data 02/01/24 05:30 02/01/24 05:30 Micro: Microbiology 01/31/24 19:27 Bacterial Antigens - Final Urine,Voided 01/30/24 22:52 Urine Culture - Preliminary Urine,Clean Catch Gram Negative Rods 01/30/24 22:18 Blood Culture - Preliminary Blood NEGATIVE TO DATE 01/30/24 22:05 Blood Culture - Preliminary Blood NEGATIVE TO DATE A&P Assessment and plan (1) Acute asthma exacerbation: Acute asthma exacerbation 2/2 suspected left-sided community acquired pneumonia CXR w/ retrocardiac opacity Significant wheezing. Decrease Solu-Medrol interval, increasing effective dose Continue ceftriaxone and azithromycin Pro-Damien was normal COVID-negative Sputum culture pending Encourage pullmonary toilet. Initiate budesonide Supportive care (2) Urinary tract infection: Urinalysis consistent with acute complicated UTI. Growing gram-negative rods Follow urine culture Continue ceftriaxone (3) Hypokalemia: Status post replacement in ED Repeat electrolytes in AM (4) Major depressive disorder, recurrent severe without psychotic features: Continue home medications Start ativan PRN for severe anxiety (5) Polysubstance abuse: UDS positive for opioids and amphetamines Would benefit from cessation. Patient denies intentional use Plan DVT ppx: Lovenox Code status: Full Code Attestations 2 Medical Necessity Statement*: Needs continued hospital stay for IV antibiotics, IV steroids secondary to severe asthma exacerbation with associated pneumonia. Diagnoses Acute asthma exacerbation J45.901 Urinary tract infection N39.0 Hypokalemia E87.6 Major depressive disorder, recurrent severe without psychotic features F33.2 Polysubstance abuse F19.10 Time Spent (min) 25
[2024-02-01] MEDS: mirtazapine 15 mg Tablet 7.5 MG PO (20:53)
[2024-02-01] MEDS: prazosin 5 mg Capsule PO (20:53)
--- NOTE | 2024-02-01 21:12 | PC.NURSE ---
Upon assessment patient was lying in bed in the dark and requested lights be left off. She had received a breathing treatment from the respiratory therapist at 1940. Patient had a RR of 25, and was audibly wheezing. Upon auscultation she had inspiratory and expiratory wheezing as well as a stridor-like sound throughout, with a coarse sound in the lower lobes/lung bases. Her cough is at times dry and wheezy, and other times more wet sounding, but non-productive regardless. HR 104, BP 120/77. Contacted Dr. Torres who gave orders for a stat chest x-ray, stat BNP, and lasix 20mg IVP once.
--- NOTE | 2024-02-01 21:14 | XRR_ITS ---
PROCEDURE INFORMATION: Exam: XR Chest Exam date and time: 02/01/2024 9:51 PM Age: 39 years old Clinical indication: Shortness of breath; Additional info: Shortness of breath, wheezing TECHNIQUE: Imaging protocol: Radiologic exam of the chest. Views: 1 view. COMPARISON: CR (CHEST, ) 01/30/2024 10:11 PM FINDINGS: Lungs: Unremarkable. No consolidation. Pleural spaces: Unremarkable. No pleural effusion. No pneumothorax. Heart/Mediastinum: Unremarkable. No cardiomegaly. Bones/joints: Unremarkable. XR/XR chest 1V portable [id number] IMPRESSION: No acute findings.
[2024-02-01 21:56] LABS: NT Pro B Type Natriuretic Pept 117 pg/mL (0-125)
[2024-02-01] MEDS: FUROsemide 10 mg/mL SDV 2mL 20 MG IVP (22:21)
--- NOTE | 2024-02-01 23:43 | PC.NURSE ---
Addendum entered by Alisa Roca RN 02/02/24 01:38: Patient reassessed after administering IV solumedrol and ceftriaxone. She has snoring respirations and is resting quietly, though retractions and accessory muscles are still in use. Expiratory wheezing throughout slightly diminished compared to previous assessment, coarse crackles still heard in left lower lobe. Last breathing treatment was administered at 2348. RR 19 and HR 60, placed monitor car operator on patient for closer monitoring. Original Note: Reassessed patient. Lung sounds have improved, though expiratory wheezing throughout persists as well as a course sound in the left lower base. The patient states she feels sick everywhere , but does not state specific symptoms such as nausea or pain. She does appear diaphoretic, RR 22 and using accessory muscles to breathe. Respiratory therapist to room to see patient at 2347.
[2024-02-02] VITALS (14 sets, daily range): BP systolic 105–125; BP diastolic 62–78; PULSE 60–99; RESP 16–20; TEMP 36.4–37; O2SAT 93–97
[2024-02-02] MEDS: cefTRIAXone 1,000 mg SDV 1000 MG IVP (01:28)
[2024-02-02] MEDS: methylPREDNISolone sod succ 40 mg/mL INJ IVP ×3 (01:28→17:40)
[2024-02-02] MEDS: azithromycin 500 MG in sodium chloride 0.9% 250 ML 250 MG IV (03:50)
--- NOTE | 2024-02-02 03:55 | PC.NURSE ---
Addendum entered by Alisa Roca RN 02/02/24 04:13: Patient has also developed significant twitching during her sleep, which was absent until the last two hours. Notified Dr. Torres of this finding as well. Original Note: Reassessed patient at 0350. She continues to have significant effort in breathing. Current HR 72, RR 18, saturating 95% on 2L. David Bertrand, data analytics specialist also assessed patient and agreed that the patient was making significant effort in breathing and that her lungs sound very wheezy and coarse throughout. Placed patient on continuous pulse oximetry for closer monitoring and notified Dr. Torres of assessment findings via [employer] messenger at 0406, received order for ABG.
[2024-02-02 04:46] LABS: ABG PCO2 50.8 mmHg (35-45); ABG PH Result 7.38 (7.35-7.45); Arterial Blood Gas Hematocrit 35.1 % (37-47); Base Excess ABG 3.7 mmol/L (-2.0-2.0); Blood Gas Allen Test Pos; Blood Gas Sample Type Arterial; Carboxyhemoglobin 0.9 %THgb (0.4-20.1); HCO3 ABG 29.8 mmol/L (22-26); HGB O2 Sat 95.8 % (95-100); Ionized Calcium Level - ABG 1.2 mmol/L (1.1-1.4); Oxygen Saturation ABG 97.7; PO2 ABG 89.7 mmHg (80.0-100.0); Potassium Level - ABG 3.7 mmol/L (3.5-5.0); Total Hemoglobin 11.5 g/dL (12-16)
[2024-02-02 04:47] LABS: Alveolar-Arterial Oxygen Gradi 6.1 mmHg (5-10); Blood Gas Operator Identificat ED; Blood Gas Sample Site Radial, left; Oxygen Device NC; PO2 FiO2 Ratio Arterial Blood 320
[2024-02-02] MEDS: ipratropium-albuterol 3 mL Neb INHALATION ×5 (04:49→19:53)
[2024-02-02 05:18] LABS: Basophils % 0.1 %; Lymphocytes # 1.1 10^3/uL (0.8-4.8); Lymphocytes % 10.2 %; Mean Corpuscular HGB Conc 31.1 g/dL (30-55); Mean Corpuscular Hemoglobin 28.4 pg (27-33); Mean Corpuscular Volume 91.1 fl (85-98); Mean Platelet Volume 10.5 fL (7.4-10.4); Monocytes # 0.3 10^3/uL (0.2-0.9); Monocytes % 2.5 %; Neutrophils # 9.04 10^3/uL (1.8-7.7); Neutrophils % 85.1 %; Nucleated Red Blood Cells % 0 %; Platelet Count 279 10^3/cmm (157-399); Red Blood Count 3.95 10^6/uL (3.85-5.65); Red Cell Distribution Width 13.8 % (12.1-15.1); White Blood Count 10.62 10^3/uL (3.29-11.43)
[2024-02-02 05:33] LABS: Anion Gap 12.8 (5-19); Blood Urea Nitrogen 21 mg/dL (6-20); Calcium 8.4 mg/dL (8.5-10.5); Carbon Dioxide 27 mmol/L (22-29); Chloride 105 mmol/L (98-107); Creatinine Clr Calc Pharmacy 136.9451; Glomerular Filtration Rate 111.3 mL/min (90-130); Glucose 164 mg/dL (65-115); Osmolality Calculated 299 mOsm/kg (285-295); Potassium 3.8 mmol/L (3.5-5.1); Sodium 141 mmol/L (136-145)
[2024-02-02] MEDS: enoxaparin 40 mg/0.4 mL Syringe SUBCUT (06:02)
[2024-02-02] MEDS: budesonide 0.5 mg/2 mL Neb INHALATION ×2 (07:51→19:53)
[2024-02-02] MEDS: oxybutynin 5 mg Tablet PO (09:06)
[2024-02-02] MEDS: duloxetine 60 mg Capsule PO (09:06)
[2024-02-02] MEDS: lamoTRIgine 100 mg Tablet PO ×2 (09:07→17:40)
--- NOTE | 2024-02-02 09:25 | PC.CHAP ---
Pastoral Care Encounter/Spiritual Assessment Type of Contact [] Declined optician visit [] Patient/Family/Request visit [] Outpatient visit [] Follow-up visit [] Physician referral [] Code/Alert [x] Routine visit [] Staff referral [] Actively dying [x] Patient sleeping [] Family support [] [] Out of room [] Palliative care [] [] Receiving care in room [] Pre-surgical visit [] Trauma [] Long length of stay [] ICU visit [] Other: Relational/Emotional Strength [] Patient feels connected with others/family/visitors/staff [] Distress [] Loneliness/isolation [] Abandonment Spirituality of Patient [] Person of Trisha [] Attends Synagogue of their Trisha [] Believes in Prayer [] Reads Bible or Hoahaoism materials [] There are Spiritual issues to be addressed 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 Interventions [x] Prayer [] Active listening [] Non-anxious presence [] Spiritual/emotional support [] Crisis/trauma care [] Spiritual counseling [] Bereavement support [] Provided bereavement packet [] Provided Bible/devotional materials [] Provided toy/stuffed animal, coloring book to patient or family member [] Provided Communion [] Anointing/Belcher [] Salvation [] Completed spiritual assessment [] Other: Impact on Illness or Injury [] Angry [] Fearful [] Anxious [] Often cries [] Exhaustion [] Unable to work [] Unable to attend confucianism [] Unable to walk/stand [] Unable to read [] Unable to drive [] Unable to eat/drink [] Unable to sleep [] Unable to be with family [] Patient intubated [] Other: Summary Time spent with patient 5 min
--- NOTE | 2024-02-02 13:30 | P.PN_ITS ---
Subjective 2 Subjective: Was more short of breath last night. Got a dose of Lasix. Feels better now. Discussed with her getting up and mobilizing today. Medications: Reviewed: Yes Vitals/I&O/Wt Last Vital Signs Temp 98.2 F 02/02/24 08:00 Pulse 87 02/02/24 13:12 Resp 16 02/02/24 13:06 BP 112/67 02/02/24 08:00 Pulse Ox 94 02/02/24 13:06 O2 Del Method Nasal Cannula 02/02/24 13:06 O2 Flow Rate 2 02/02/24 13:06 02/01/24 02/02/24 02/02/24 22:59 06:59 14:59 Intake Total 480 / 840 850 / 1690 Output Total 900 / 900 Balance 480 / 840 -50 / 790 Weight last 48 hrs Weight 79.878 kg Weight 81.783 kg Physical Exam 2 Narrative: General Exam awake and alert Neck is supple Cardiovascular regular rate and rhythm Lungs expiratory wheezing, mild retractions Extremities no cyanosis clubbing or edema Data 02/02/24 05:04 02/02/24 05:04 Micro: Microbiology 01/31/24 19:22 Gram Stain - Final Sputum - Expectorated Sputum Sputum Culture - Preliminary 01/30/24 22:52 Urine Culture - Final Urine,Clean Catch Klebsiella pneumoniae 01/31/24 19:27 Bacterial Antigens - Final Urine,Voided A&P Assessment and plan (1) Acute asthma exacerbation: Acute asthma exacerbation 2/2 suspected left-sided community acquired pneumonia CXR w/ retrocardiac opacity Significant wheezing. Continue Solu-Medrol On ceftriaxone and Zithromax. She has received 3 days of Zithromax so we will discontinue Pro-Damien was normal COVID-negative Sputum culture pending Encourage pullmonary toilet. Initiate budesonide Supportive care (2) Urinary tract infection: Urinalysis consistent with acute complicated UTI. Klebsiella has grown, sensitive to ceftriaxone (3) Hypokalemia: Resolved currently Repeat electrolytes in AM (4) Major depressive disorder, recurrent severe without psychotic features: Continue home medications (5) Polysubstance abuse: UDS positive for opioids and amphetamines Would benefit from cessation. Patient denies intentional use Plan DVT ppx: Lovenox Code status: Full Code Attestations 2 Medical Necessity Statement*: Needs continued hospitalization for IV antibiotics, steroids secondary to asthma exacerbation with pneumonia still requiring oxygen. Diagnoses Acute asthma exacerbation J45.901 Urinary tract infection N39.0 Hypokalemia E87.6 Major depressive disorder, recurrent severe without psychotic features F33.2 Polysubstance abuse F19.10 Time Spent (min) 23
[2024-02-02] MEDS: mirtazapine 15 mg Tablet 7.5 MG PO (22:08)
[2024-02-02] MEDS: prazosin 5 mg Capsule PO (22:09)
[2024-02-02] MEDS: LORazepam 1 mg Tablet 0.5 MG PO (22:12)
[2024-02-03] VITALS (15 sets, daily range): BP systolic 105–146; BP diastolic 65–85; PULSE 64–106; RESP 15–20; TEMP 36.4–36.9; O2SAT 91–96
[2024-02-03] MEDS: ipratropium-albuterol 3 mL Neb INHALATION ×6 (00:29→19:44)
[2024-02-03] MEDS: cefTRIAXone 1,000 mg SDV 1000 MG IVP (02:00)
[2024-02-03] MEDS: methylPREDNISolone sod succ 40 mg/mL INJ IVP ×3 (02:00→17:20)
[2024-02-03 03:29] LABS: Basophils % 0.3 %; Lymphocytes # 1.4 10^3/uL (0.8-4.8); Lymphocytes % 12.3 %; Mean Corpuscular HGB Conc 31.4 g/dL (30-55); Mean Corpuscular Hemoglobin 28.2 pg (27-33); Mean Corpuscular Volume 89.7 fl (85-98); Mean Platelet Volume 10.6 fL (7.4-10.4); Monocytes # 0.5 10^3/uL (0.2-0.9); Monocytes % 4.2 %; Neutrophils # 8.68 10^3/uL (1.8-7.7); Neutrophils % 78.8 %; Nucleated Red Blood Cells % 0 %; Platelet Count 296 10^3/cmm (157-399); Red Cell Distribution Width 13.7 % (12.1-15.1); White Blood Count 11.02 10^3/uL (3.29-11.43)
[2024-02-03 03:53] LABS: Anion Gap 13.5 (5-19); Blood Urea Nitrogen 15 mg/dL (6-20); Calcium 8.4 mg/dL (8.5-10.5); Carbon Dioxide 27 mmol/L (22-29); Chloride 105 mmol/L (98-107); Creatinine Clr Calc Pharmacy 164.3341; Glomerular Filtration Rate 137.4 mL/min (90-130); Glucose 150 mg/dL (65-115); Osmolality Calculated 298 mOsm/kg (285-295); Potassium 3.5 mmol/L (3.5-5.1); Sodium 142 mmol/L (136-145)
[2024-02-03] MEDS: enoxaparin 40 mg/0.4 mL Syringe SUBCUT (06:19)
[2024-02-03] MEDS: budesonide 0.5 mg/2 mL Neb INHALATION ×2 (08:15→19:44)
[2024-02-03] MEDS: lamoTRIgine 100 mg Tablet PO ×2 (08:43→17:20)
[2024-02-03] MEDS: oxybutynin 5 mg Tablet PO (08:43)
[2024-02-03] MEDS: duloxetine 60 mg Capsule PO (08:43)
[2024-02-03] MEDS: loratadine 10 mg Tablet PO (08:51)
--- NOTE | 2024-02-03 10:25 | P.PN_ITS ---
Subjective 2 Subjective: Eladia she is still wheezing quite a bit. Still coughing, and occasional productivity of sputum. Wondering about dupilumab as an outpatient as she has not had it for several months. Medications: Reviewed: Yes Vitals/I&O/Wt Last Vital Signs Temp 98.2 F 02/03/24 07:48 Pulse 98 02/03/24 08:15 Resp 18 02/03/24 08:15 BP 146/85 02/03/24 07:48 Pulse Ox 93 02/03/24 08:15 O2 Del Method Nasal Cannula 02/03/24 08:15 O2 Flow Rate 1 02/03/24 08:15 02/02/24 02/03/24 02/03/24 22:59 06:59 14:59 Intake Total 600 / 1680 Balance 600 / 1680 Weight last 48 hrs Weight 84.623 kg Weight 79.878 kg Physical Exam 2 Narrative: General Exam awake and alert, still on 1 L of oxygen Neck is supple Cardiovascular regular rate and rhythm Lungs expiratory wheezing, mild retractions. Perhaps mildly improved from yesterday Extremities no cyanosis clubbing or edema Data 02/03/24 02:36 02/03/24 02:36 Micro: Microbiology 01/31/24 19:22 Gram Stain - Final Sputum - Expectorated Sputum Sputum Culture - Preliminary 01/30/24 22:52 Urine Culture - Final Urine,Clean Catch Klebsiella pneumoniae A&P Assessment and plan (1) Acute asthma exacerbation: Acute asthma exacerbation 2/2 suspected left-sided community acquired pneumonia CXR w/ retrocardiac opacity Significant wheezing. Continue Solu-Medrol On ceftriaxone and Zithromax. She has received 3 days of Zithromax so we will discontinue Pro-Damien was normal COVID-negative Sputum culture pending Encourage pullmonary toilet. Initiate budesonide Supportive care Add Singulair and loratadine Will try to arrange appropriate follow-up for dupilumab evaluation (2) Urinary tract infection: Urinalysis consistent with acute complicated UTI. Klebsiella has grown, sensitive to ceftriaxone. Continue ceftriaxone (3) Hypokalemia: Resolved currently Repeat electrolytes in AM (4) Major depressive disorder, recurrent severe without psychotic features: Continue home medications (5) Polysubstance abuse: UDS positive for opioids and amphetamines Would benefit from cessation. Patient denies intentional use Plan DVT ppx: Lovenox Code status: Full Code Attestations 2 Medical Necessity Statement*: Needs continued hospital stay for IV antibiotics, IV steroids secondary to asthma exacerbation still with significant wheezing and oxygen requirement Diagnoses Acute asthma exacerbation J45.901 Urinary tract infection N39.0 Hypokalemia E87.6 Major depressive disorder, recurrent severe without psychotic features F33.2 Polysubstance abuse F19.10 Time Spent (min) 26
--- NOTE | 2024-02-03 17:02 | PC.NURSE ---
This nurse assumed care of pt at 1700.
[2024-02-03] MEDS: montelukast sodium 10 mg Tablet PO (17:19)
[2024-02-03] MEDS: prazosin 5 mg Capsule PO (20:49)
[2024-02-03] MEDS: mirtazapine 15 mg Tablet 7.5 MG PO (20:49)
[2024-02-03] MEDS: LORazepam 1 mg Tablet 0.5 MG PO (21:04)
[2024-02-04] VITALS (13 sets, daily range): BP systolic 96–131; BP diastolic 56–83; PULSE 70–104; RESP 15–19; TEMP 36.4–36.8; O2SAT 92–97
[2024-02-04] MEDS: ipratropium-albuterol 3 mL Neb INHALATION ×5 (00:27→15:17)
[2024-02-04] MEDS: methylPREDNISolone sod succ 40 mg/mL INJ IVP ×2 (01:23→09:05)
[2024-02-04] MEDS: cefTRIAXone 1,000 mg SDV 1000 MG IVP (01:24)
[2024-02-04] MEDS: enoxaparin 40 mg/0.4 mL Syringe SUBCUT (05:16)
[2024-02-04 05:30] LABS: Basophils % 0.4 %; Eosinophils % 0.1 %; Hematocrit 38.2 % (36-47); Lymphocytes # 1.4 10^3/uL (0.8-4.8); Lymphocytes % 12.4 %; Mean Corpuscular HGB Conc 31.9 g/dL (30-55); Mean Corpuscular Hemoglobin 28.9 pg (27-33); Mean Corpuscular Volume 90.5 fl (85-98); Mean Platelet Volume 11.8 fL (7.4-10.4); Monocytes # 0.5 10^3/uL (0.2-0.9); Monocytes % 4.3 %; Neutrophils % 76.9 %; Nucleated Red Blood Cells % 0.2 %; Platelet Count 269 10^3/cmm (157-399); Red Blood Count 4.22 10^6/uL (3.85-5.65); Red Cell Distribution Width 13.5 % (12.1-15.1); White Blood Count 10.93 10^3/uL (3.29-11.43)
[2024-02-04 06:17] LABS: Slide Review Slide Review Perform
[2024-02-04] MEDS: ondansetron 4 MG Tablet PO (06:40)
[2024-02-04 07:18] LABS: Anion Gap 12.7 (5-19); Blood Urea Nitrogen 18 mg/dL (6-20); Calcium 8.4 mg/dL (8.5-10.5); Carbon Dioxide 27 mmol/L (22-29); Chloride 103 mmol/L (98-107); Creatinine Clr Calc Pharmacy 141.9569; Glomerular Filtration Rate 111.3 mL/min (90-130); Glucose 152 mg/dL (65-115); Osmolality Calculated 293 mOsm/kg (285-295); Potassium 3.7 mmol/L (3.5-5.1); Sodium 139 mmol/L (136-145)
[2024-02-04] MEDS: budesonide 0.5 mg/2 mL Neb INHALATION (07:48)
--- NOTE | 2024-02-04 08:35 | P.PN_ITS ---
Subjective 2 Subjective: Patient reports she is still wheezing and short of breath. Minimally improved. Still spending quite a bit of time in bed. Medications: Reviewed: Yes Vitals/I&O/Wt Last Vital Signs Temp 98.2 F 02/04/24 07:24 Pulse 78 02/04/24 07:58 Resp 16 02/04/24 07:49 BP 131/83 02/04/24 07:24 Pulse Ox 96 02/04/24 07:49 O2 Del Method Nasal Cannula 02/04/24 07:49 O2 Flow Rate 1 02/04/24 07:49 02/03/24 02/04/24 02/04/24 22:59 06:59 14:59 Intake Total 440 / 880 0 / 880 Balance 440 / 880 0 / 880 Weight last 48 hrs Weight 86.183 kg Weight 84.623 kg Physical Exam 2 Narrative: General Exam awake and alert, still on 1 L of oxygen Neck is supple Cardiovascular regular rate and rhythm Lungs expiratory wheezing, mild retractions. Improved air expansion. Still tachypneic while I was in the room respiratory rate was about 24 Extremities no cyanosis clubbing or edema Data 02/04/24 04:41 02/04/24 06:44 Micro: Microbiology 01/31/24 19:22 Gram Stain - Final Sputum - Expectorated Sputum Sputum Culture - Final A&P Assessment and plan (1) Acute asthma exacerbation: Acute asthma exacerbation 2/2 suspected left-sided community acquired pneumonia CXR w/ retrocardiac opacity Significant wheezing. Continue Solu-Medrol On ceftriaxone and Zithromax. She has received 3 days of Zithromax so we will discontinue Pro-Damien was normal COVID-negative Sputum culture ultimately negative Encourage pullmonary toilet. Continue budesonide Supportive care Continue Singulair and loratadine Will try to arrange appropriate follow-up for dupilumab evaluation Add incentive spirometry Add Mucinex Wean IV steroids to every 12 hours (2) Urinary tract infection: Urinalysis consistent with acute complicated UTI. Klebsiella has grown, sensitive to ceftriaxone. Continue ceftriaxone (3) Hypokalemia: Resolved currently Repeat electrolytes in AM (4) Major depressive disorder, recurrent severe without psychotic features: Continue home medications (5) Polysubstance abuse: UDS positive for opioids and amphetamines Would benefit from cessation. Patient denies intentional use Plan DVT ppx: Lovenox Code status: Full Code No lab needed for tomorrow Attestations 2 Medical Necessity Statement*: Needs continued hospital stay secondary to persistent wheezing, requiring IV steroids and frequent breathing treatments. Diagnoses Acute asthma exacerbation J45.901 Urinary tract infection N39.0 Hypokalemia E87.6 Major depressive disorder, recurrent severe without psychotic features F33.2 Polysubstance abuse F19.10 Time Spent (min) 23
[2024-02-04] MEDS: oxybutynin 5 mg Tablet PO (09:04)
[2024-02-04] MEDS: loratadine 10 mg Tablet PO (09:04)
[2024-02-04] MEDS: guaiFENesin 600 mg Tablet PO (09:04)
[2024-02-04] MEDS: duloxetine 60 mg Capsule PO (09:04)
[2024-02-04] MEDS: lamoTRIgine 100 mg Tablet PO (09:04)
--- NOTE | 2024-02-04 13:44 | PC.NURSE ---
Hemovac pulled per patient's nurse's orders. Patient tolerated well, catheter intact. Dressing applied appropriately and abdominal binder reapplied.
--- NOTE | 2024-02-04 15:38 | W.PM.EVENTAC ---
Event Note Event Note: Patient elected to go AGAINST MEDICAL ADVICE. I discussed with her the risks, including and/or permanent disability. Secondary to the severity of her asthma, I did give her prescriptions upon discharge, discussed follow-up, home oxygen evaluation with the intent to arrange for oxygen at discharge if needed. Herself, and her partner acknowledges the risks.
--- NOTE | 2024-02-04 15:57 | PC.NURSE ---
Pt requesting to leave AMA to go to a wedding. Dr. Andino speaks with patient, pulmonology follow-up sent, meds completed and sent to pharmacy. IV out.
== END 2024-02-04 16:34 | disposition left against medical advice (07) | DRG 202 ==
LOC: ER 01-31 00:08 → MEDSURG 01-31 06:48
PROVIDERS: Family Medicine; Admitting Provider Internal Medicine; Emergency Provider Emergency Medicine; PCP Family Medicine; Visit Provider Internal Medicine
DX: J45.901 Unspecified asthma with (acute) exacerbation (principal); F33.2 Major depressive disorder, recurrent severe without psychotic features; N39.0 Urinary tract infection, site not specified; F60.3 Borderline personality disorder; E87.6 Hypokalemia; F19.10 Other psychoactive substance abuse, uncomplicated; B96.1 Klebsiella pneumoniae [K. pneumoniae] as the cause of diseases classified elsewhere; F43.10 Post-traumatic stress disorder, unspecified; Z79.899 Other long term (current) drug therapy; Z88.1 Allergy status to other antibiotic agents; Z88.2 Allergy status to sulfonamides; Z88.8 Allergy status to other drugs, medicaments and biological substances; Z87.891 Personal history of nicotine dependence; Z11.52 Encounter for screening for COVID-19; Z53.29 Procedure and treatment not carried out because of patient's decision for other reasons
CPT/HCPCS: 0241U; 36415; 36600; 71045; 80048; 80051; 80053; 80306; 81001; 82330; 82805; 83605; 83735; 83880; 84100; 84145; 85025; 86403; 87040; 87070; 87077; 87086; 87186; 87205; 93005; 94640; 94760; 96365; 96372; 96375; 99285; G0378; J0456; J0696; J1170; J1650; J1940; J2270; J2405; J2919; J3475; J7050; J7613; J7626; Q0162

== ENCOUNTER 2025-01-16 20:34 | Inpatient (IN) | payer BC, SELFPAY ==
--- OUTSIDE RECORDS SUMMARY | 2019-02-03 04:30 | XMS_ITS | Continuity of Care Document ---
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 do no rinse. - Active ibuprofen 800 mg tablet take 1 tablet (800MG) by ORAL route 3 times every day with food as needed for pain from oral surgery - Active SPIRIVA RESPIMAT (unknown strength) inhale 2 puff by inhalation route every day Not Available - Active Nucala 100 mg subcutaneous solution inject 1 milliliter by subcutaneous route every 4 weeks in the abdomen, thigh, or upper arm 100 MG - Active ProAir RespiClick 90 mcg/actuation breath activated inhale 2 puff by inhalation route every 4 - 6 hours as needed 180 MCG - Active Singulair 10 mg tablet take 1 tablet by oral route every day in the evening 10 MG - Active Advair HFA 115 mcg-21 mcg/actuation aerosol inhaler inhale 2 puff by inhalation route 2 times every day in the morning and evening 2.00 puff - Active Zyrtec 10 mg tablet take 1 tablet by oral route every day 10 MG - Active Procedures Procedure Date Prophylaxis Adult EDR Approval Note Resin-Based Composite One Surface, Anterior Resin-Based Composite One Surface, Posterior Resin-Based Composite One Surface, Posterior EDR Approval Note Post Op No Charge EDR Approval Note Intraoral Periapical First Film Extraction, Erupted Tooth Or Exposed Beti t (Elevati EDR Approval Note Resin-Based Composite Three Surfaces, Posterior Resin-Based Composite Three Surfaces, Posterior EDR Approval Note Comprehensive Oral Evaluatio n New Or Established Bitewings Four Films Panoramic Film Intraoral Periapical First Film Intraoral Periapical Each Additional Film Intraoral Periapical Each Additional Film Intraoral Periapical Each Additional Film EDR Approval Note EDR Approval Note Advance Directives Directive Yes / No Effective Date File Name No Information Encounters Encounter Description Practice Location Reason(s) For Visit Diagnoses Date Provider Providers Copied on Encounter [facility], [id number] [place], [place], [id number], [place] tel:[phone] Dental General Encounter for dental exam and cleaning w/o abnormal findings Sep-2 0-201 9 Bishop Polk. [address] [place], [address], [place]. tel:[phone] Referring Provider: Felicitas Marte, [address] [place], [address]. tel:[phone] [facility], [id number], [id number], [place] tel:[phone] Dental General Encounter for dental exam and cleaning w/o abnormal findings Sep-0 6-201 9 Ashutosh Solis. [address] [place], [address], [place]. tel:[phone] Referring Provider: Will Lopez, [address] [place], [address]. tel:[phone] [facility], [id number], [place], [place], [id number], [place] tel: [phone] Dental General LL Encounter for dental exam and cleaning w/o abnormal findings 9 Nicole Bell. [address], [place], [id number] , [place]. tel: [phone] Referring Provider: Ray Marion, [address] [place], [address] . tel:[phone] [facility], [id number] [place], [place], [id number], [place] tel:[phone] Dental General LL Encounter for dental exam and cleaning w/o abnormal findings 9 Ashutosh Solis. [address] [place], [address], [place]. tel: [phone] Referring Provider: Will Lopez, [address] [place], [address]. tel:[phone] [facility], [id number], [place], [place], [id number], [place] tel: [phone] Dental General LL Encounter for dental exam and cleaning w/o abnormal findings 9 Ashutosh Solis. [address] [place], [address], [place]. tel: [phone] Referring Provider: Will Lopez, [address] [place], [address]. tel:[phone] [facility], [id number], [place], [place], [id number], [place] tel:[phone] Dental General LL Tooth cariesEncounter for dental exam and cleaning w/o abnormal findings 7-201 9 Jamey Sanchez. [address], [address], [place]. tel:[phone] Referring Provider: Daniel Concepcion, [address] [place], [address]. tel:[phone] sulting Provider: Donita Farias, [address] [place], [address] . tel:[phone] Family History Family Member Type Diagnosis Age At Onset Mother Problem (finding) hypertension Paternal grandfather Problem (finding) Myocardial infa rction Maternal grandmother Problem (finding) Diabetes mellit us Payers Payer name Insurance type Covered libertarian ID Wei mckinney(s) D [employer] CI [id number] Social History Type Description Quantity Date Captured Comments Alcohol Use Details No Caffeine Use Details Unknown Tobacco Use Status No Information Smoking Status No Information Sex Female Chief Complaint And Reason For Visit No Information Reason For Referral Reason For Referral No Information History Of Present Illness Encounter Date Complaint History Of Prese nt Illness No Information Functional Status Date Functional Assessmen t No Information Instructions Date Instruction Additional Infor mation No Information Assessments Type Assessment Date No Information Patient Care Teams Name Effective Dates (start - stop) Status Members No Information
[2025-01-16] VITALS (10 sets, daily range): BP systolic 90–123; BP diastolic 45–95; PULSE 90–106; RESP 20; TEMP 36.9; O2SAT 95–99
[2025-01-16] MEDS: ketamine 100 mg/mL Inj 5 mL 200 MG IVP ×2 (20:53→21:35)
--- NOTE | 2025-01-16 20:53 | ECG_ITS ---
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 Measurements Intervals [place] Rate: 110 P: 44 VA: 116 QRS: 44 QRSD: 84 T: 42 QT: 338 QTc: 458 Interpretive Statements SINUS TACHYCARDIA WITH SHORT VA INTERVAL MODERATE ST DEPRESSION [0.05+ mV ST DEPRESSION] Compared to ECG 01/30/2024 22:10:56 Short VA interval now present ST (T wave) deviation still present Electronically Signed On 01-17-2025 23:51:53 CDT by Theresa Montenegro M.D. [email or web address]
--- NOTE | 2025-01-16 21:00 | CTR_ITS ---
PROCEDURE INFORMATION: Exam: CT Head Without Contrast Exam date and time: 01/16/2025 9:34 PM Age: 39 years old Clinical indication: Injury or trauma; Other: See notes; Unconscious; Additional info: Altered mental status/head trauma TECHNIQUE: Imaging protocol: Computed tomography of the head without contrast. Radiation optimization: All CT scans at this facility use at least one of these dose optimization techniques: automated exposure control; mA and/or kV adjustment per patient size (includes targeted exams where dose is matched to clinical indication); or iterative reconstruction. COMPARISON: CT cervical spin wo con* [id number] 01/16/2025 9:34 PM RADIATION DOSE METRICS: Total DLP (mGy-cm): 279 FINDINGS: Brain: Normal. No hemorrhage. Unremarkable white matter. No mass effect. Cerebral ventricles: No ventriculomegaly. Paranasal sinuses: Visualized sinuses are unremarkable. No fluid levels. Mastoid air cells: Visualized mastoid air cells are well aerated. Bones: Unremarkable. No acute fracture. Soft tissues: Unremarkable. CT/CT head wo con* [id number] IMPRESSION: No large territorial infarct or intracranial bleed.
--- NOTE | 2025-01-16 21:00 | ECG_ITS ---
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 Measurements Intervals [place] Rate: 89 P: 49 SC: 136 QRS: 37 QRSD: 92 T: 30 QT: 391 QTc: 478 Interpretive Statements SINUS RHYTHM MINIMAL ST DEPRESSION [0.025+ mV ST DEPRESSION] Compared to ECG 01/30/2024 22:10:56 Sinus tachycardia no longer present ST (T wave) deviation still present Electronically Signed On 01-17-2025 23:50:56 CDT by Theresa Montenegro M.D. [email or web address] [id number]
--- NOTE | 2025-01-16 21:01 | XRR_ITS ---
PROCEDURE INFORMATION: Exam: XR Chest Exam date and time: 01/16/2025 9:06 PM Age: 39 years old Clinical indication: Shortness of breath; Additional info: Hypoxia TECHNIQUE: Imaging protocol: Radiologic exam of the chest. Views: 1 view. COMPARISON: CR XR chest 1V portable [id number] 02/01/2024 9:51 PM FINDINGS: Lungs: Mild diffuse interstitial prominence. No focal consolidation. Pleural spaces: Unremarkable. No pleural effusion. No pneumothorax. Heart/Mediastinum: Unremarkable. No cardiomegaly. Bones/joints: Unremarkable. XR/XR chest 1V portable [id number] IMPRESSION: Mild diffuse interstitial prominence could represent atelectasis, mild edema, or infiltrate.
--- NOTE | 2025-01-16 21:01 | CTR_ITS ---
PROCEDURE INFORMATION: Exam: CT Cervical Spine Without Contrast Exam date and time: 01/16/2025 9:34 PM Age: 39 years old Clinical indication: Injury or trauma; Other: See notes; Unconscious TECHNIQUE: Imaging protocol: Computed tomography of the cervical spine without contrast. Radiation optimization: All CT scans at this facility use at least one of these dose optimization techniques: automated exposure control; mA and/or kV adjustment per patient size (includes targeted exams where dose is matched to clinical indication); or iterative reconstruction. COMPARISON: CR XR chest 1V portable [id number] 01/16/2025 9:06 PM RADIATION DOSE METRICS: Total DLP (mGy-cm): 265.5 FINDINGS: Tubes, catheters and devices: Partially included ET tube. Bones: There is a rotatory subluxation of C1 over C2 estimated at 23 degrees, likely positional. No acute fracture, compression deformity or spondylolisthesis. Lungs: Lung apices are normal. Soft tissues: Unremarkable. CT/CT cervical spin wo con* [id number] IMPRESSION: No acute posttraumatic changes in the cervical spine.
--- NOTE | 2025-01-16 21:01 | W.ED.PSYCHS ---
HPI - Psych General: Chief Complaint: ER Hold Stated Complaint: AMS, METH USE Time Seen by Provider: 01/16/25 20:49 History of Present Illness: 39-year-old female presents to the emergency room via EMS. She was evidently riding in a [employer] truck beating [place] the [place]. A third-libertarian called PD PD pulled over the truck and EMS was called. She is under the influence of staff said when she first arrived she was able to to answer questions I was called to the room emergently she was no longer responsive but was thrashing around on the bed. Her oxygen saturations were normal. EMS report she was given 5 mg of Versed intranasally and then 2.5 IV and route. She was complaining of some back pain at the scene. Per EMS she had taken a hit off of a pipe of an unknown substance assumed to be methamphetamine Related Data Home Medications ?Medication ?Instructions ?Recorded ?Confirmed albuterol sulfate 90 mcg/actuation 2 puff inhalation 6XD 05/23/19 01/31/24 aerosol inhaler (ProAir HFA) CPAP 04/01/21 01/31/24 dupilumab 300 mg/2 mL subcutaneous 300 mg SUBCUT .Twice Monthly 04/01/21 01/31/24 pen injector ([employer] [facility] [employer]) buspirone 15 mg tablet 15 mg PO TID PRN unknown 01/31/24 01/31/24 montelukast 10 mg tablet 10 mg PO DAILY 01/31/24 01/31/24 oxybutynin chloride 5 mg 5 mg PO DAILY 01/31/24 01/31/24 tablet,extended release 24 hr Previous Rx's ?Medication ?Instructions ?Recorded lamotrigine 100 mg tablet 100 mg PO BID #60 tabs 11/05/21 ibuprofen 800 mg tablet 800 mg PO Q8H PRN pain #30 tabs 10/16/23 prednisone 20 mg tablet 60 mg (3 x 20 mg) PO DAILY 5 days 10/16/23 #15 tabs Allergies Allergy/AdvReac Type Severity Reaction Status Date / Time amoxicillin Allergy Intermediate ADR-Vomitin Verified 01/30/24 22:20 g clindamycin Allergy Intermediate ALGY-Hives Verified 01/30/24 22:20 diphenhydramine Allergy Intermediate ALGY-Hives Verified 01/30/24 22:20 escitalopram Allergy Intermediate ADR-Dizzine Verified 01/30/24 22:20 ss fluoxetine (From Prozac) Allergy Intermediate Noxious Verified 01/30/24 22:20 gabapentin Allergy Intermediate Noxious Verified 01/30/24 22:20 Penicillins Allergy Intermediate ADR-Vomitin Verified 01/30/24 22:20 g Sulfa (Sulfonamide Allergy Intermediate ALGY-Hives Verified 01/30/24 22:20 Antibiotics) Review of Systems General: Reports: ROS unobtainable due to mental status PFSH ED PFSH: Medical History Psychiatric care Borderline personality disorder Post-traumatic stress disorder, chronic Major depressive disorder, recurrent severe without psychotic features Unspecified personality disorder Blood type O- Cervical intraepithelial neoplasia I 07/2019: Negative with negative HR HPV. 07/20/2018: NILM/negative HR HPV 11/05/2017: Colposcopy with ECC. Path showed JUDIT-1. 09/24/2017: ASCUS with positive HR HPV. 03/18/2017: ASCUS with positive HR HPV. 09/21/2016: Colposcopy with negative findings. No biopsies. 03/09/2016: Low-grade IVETH (Dr. Walter). 03/08/2014: Negative for intraepithelial lesion or malignancy. 04/2011: LEEP performed in [place], [place]. Reports has a history of abnormal Paps. Asthma Surgical History History of section, low transverse (01/29/17) Repeat LTCS. Performed by Dr. Taveras at [facility] in [place], [place]. History of section, low transverse (01/25/14) Nonreassuring heart tones. Performed by Dr. Washingtno at [facility] in [place], [place]. Documented low transverse incision of the uterus with a 2 layer closure. History of loop electrical excision procedure (LEEP) (~04/2011) Preformed in [place], [place]. Normal per patient. Family History Grandmother Breast cancer maternal Diabetes maternal Mother Hypertension Sister Thyroid disease Cervical cancer Grandfather , Maternal. age 80 Lung cancer Social History Smoking and tobacco/nicotine status: former use of tobacco/nicotine Quit status (tobacco/nicotine): has quit using Year quit tobacco: 2021 Second hand smoke exposure: Yes Alcohol intake: current Alcohol intake frequency: few times a month Substance/Drug Use: never Physical Exam HENMT: COMMON NORMALS: normocephalic, atraumatic and hearing grossly normal bilaterally HEAD & SCALP: normocephalic and atraumatic Resp: COMMON NORMALS: normal respiratory effort, No retractions, No use of accessory muscles and clear to auscultation bilaterally AUSCULTATION: clear to auscultation bilaterally Cardio: COMMON NORMALS: regular rhythm and No murmurs present (Cardio) RATE: tachycardic RHYTHM: regular rhythm GI: COMMON NORMALS: Soft to palpation and No hepatosplenomegaly present AUSCULTATION: Yes normoactive bowel sounds PALPATION: Yes Soft to palpation, No Tenderness to palpation present (GI), No Guarding due to palpation present (GI) and Yes No hepatosplenomegaly present Extremity: COMMON NORMALS: normal to inspection, capillary refill normal, no clubbing, cyanosis or edema, no calf tenderness and no pedal edema Skin: COMMON NORMALS: no rashes or lesions noted GENERAL SKIN EXAM: no rashes or lesions noted Procedures Intubation sedative: Etomidate Mg Given: 30 paralytic: Vecuronium Mg Given: 10 Laryngoscope: fiber optic video scope ET Tube Size: 8 ET Tube Uncuffed: No Tube Secured Depth (cm): 22 Tube Secured Location: teeth Tube Placement Confirmation: visualized tube passing through cords, equal breath sounds bilaterally, no breath sounds over epigastrium and confirmation by capnometry Patient Tolerated Procedure: well Intubation Complications: none Course Vital Signs: Vital signs: Vital Signs Temperature 98.5 F 01/16/25 20:36 Pulse Rate 76 01/17/25 03:00 Respiratory Rate 18 01/17/25 01:31 Blood Pressure 104/54 01/17/25 03:00 Pulse Oximetry 100 01/17/25 03:00 Oxygen Delivery Me thod Mechanical Ventil ation 01/17/25 03:00 Oxygen Flow Rate 2 01/16/25 20:36 Fraction of Inspir ed Oxygen 80 01/17/25 00:08 MDM - Psych Medical Decision Making Patient is thrashing around in the bed she is hitting her head on the bed real seizure pads were applied to the bed rails. Despite that she continued to thrash around ultimately she given 200 of IV ketamine to protect herself. After this she had sonorous respirations she began to desat a little bit but with a jaw thrust maneuver immediately her sats raised up to 90 presents. A MEDICAL ASSISTANT PRN was placed and she is placed on 2 L/min she is now maintaining her sats normally with a respiratory rate in the 30s. CT of the head was ordered by the time patient arrived to CT she required another 200 mg of ketamine she began thrashing around was unable to be redirected and we are not can be able to get the CT without it. She continues to require nasal trumpet when sedated to maintain her airway. Patient continues to have erratic behavior thrashing around concern she may harm herself when we sedate her she requires intervention to with her airway. Concerned that she may lose control of her airway and/or harm herself. Rather than continuous given her intermittent doses of ketamine at this point we will intubate her and sedate her. Discussed with the hospitalist we both agree at this point is probably safer for her. RSI intubation with 30 of etomidate and 10 of vecuronium. Initially patient started on propofol then later added Versed to maintain sedation. We discussed Dr. Remy orders written for ICU Medical Records I reviewed the patient's medical records. Lab Data I reviewed the patient's lab results. 01/16/25 21:20 01/16/25 21:[address] 01/16/25 21:00 IMPRESSION: No large territorial infarct or intracranial bleed. Cervical Spine CT 01/16/25 21:01 IMPRESSION: No acute posttraumatic changes in the cervical spine. Chest X-Ray 01/17/25 00:39 IMPRESSION: 1. The endotracheal tube terminates at the level of the evelyne. Mild retraction and reimaging is recommended. 2. Appropriately seated enteric tube. 3. Suggested basilar atelectasis. Laboratory Results WBC 18.77 10^3/uL (3.29-11.43) H 01/16/25 21:20 RBC 3.99 10^6/uL (3.85-5.65) 01/16/25 21:20 Hgb 11.40 g/dL (11.27-16.99) 01/16/25 21:20 Hct 35.1 % (36-47) L 01/16/25 21:20 MCV 88.0 fl (85-98) 01/16/25 21:20 MCH 28.6 pg (27-33) 01/16/25 21:20 MCHC 32.5 g/dL (30-55) 01/16/25 21:20 RDW 13.2 % (12.1-15.1) 01/16/25 21:20 Plt Count 324 10^3/cmm (157-399) 01/16/25 21:20 MPV 10.1 fL (7.4-10.4) 01/16/25 21:20 Neut % (Auto) 71.4 % 01/16/25 21:20 Lymph % (Auto) 14.1 % 01/16/25 21:20 [place] % (Auto) 12.7 % 01/16/25 21:20 Eos % (Auto) 0.5 % 01/16/25 21:20 Baso % (Auto) 0.4 % 01/16/25 21:20 Neut # (Auto) 13.42 10^3/uL (1.8-7.7) H 01/16/25 21:20 Lymph # (Auto) 2.6 10^3/uL (0.8-4.8) 01/16/25 21:20 [place] # (Auto) 2.4 10^3/uL (0.2-0.9) H 01/16/25 21:20 Eos # (Auto) 0.1 10^3/uL (0.0-0.8) 01/16/25 21:20 Baso # (Auto) 0.1 10^3/uL (0.0-0.1) 01/16/25 21:20 Nucleated RBC % (auto) 0 % 01/16/25 21:20 Nucleated RBCs # 0.0 /100WBC 01/16/25 21:20 Specimen Type Arterial 01/16/25 21:49 Sample Site Radial, left 01/16/25 21:49 ABG pH 7.33 (7.35-7.45) L 01/16/25 21:49 ABG pCO2 34.5 mmHg (35-45) L 01/16/25 21:49 ABG pO2 79.8 mmHg (80.0-100.0) L 01/16/25 21:49 ABG PO2/FiO2 Ratio 380 01/16/25 21:49 ABG HCO3 18.0 mmol/L (22-26) L 01/16/25 21:49 ABG O2 Saturation 95.0 01/16/25 21:49 ABG Base Excess -7.2 mmol/L (-2.0-2.0) L 01/16/25 21:49 Jeremie Test Pos 01/16/25 21:49 A-a O2 Gradient 3.4 mmHg (5-10) L 01/16/25 21:49 Hematocrit 35.6 % (37-47) L 01/16/25 21:49 Hgb O2 Saturation 92.8 % (95-100) L 01/16/25 21:49 Carboxyhemoglobin 1.3 %THgb (0.4-20.1) 01/16/25 21:49 Methemoglobin 1.1 % (0.4-1.5) 01/16/25 21:49 Total Hemoglobin 11.6 g/dL (12-16) L 01/16/25 21:49 Sodium 144.0 mmol/L (131-143) H 01/16/25 21:49 Potassium 3.3 mmol/L (3.5-5.0) L 01/16/25 21:49 Glucose 70.0 mg/dL (70-115) 01/16/25 21:49 Ionized Calcium 1.2 mmol/L (1.1-1.4) 01/16/25 21:49 O2 Delivery Device Room air 01/16/25 21:49 FiO2 21.0 % 01/16/25 21:49 Psychotherapist ID [email or web address] 01/16/25 21:49 Sodium 141 mmol/L (136-145) 01/16/25 21:20 Potassium 3.5 mmol/L (3.5-5.1) 01/16/25 21:20 Chloride 102 mmol/L (98-107) 01/16/25 21:20 Carbon Dioxide 16 mmol/L (22-29) L 01/16/25 21:20 Anion Gap 26.5 (5-19) H 01/16/25 21:20 BUN 38 mg/dL (6-20) H 01/16/25 21:20 Creatinine 1.6 mg/dL (0.5-0.9) H 01/16/25 21:20 GFR Calculation 35.9 mL/min (90-130) L 01/16/25 21:20 Glucose 73 mg/dL (65-115) 01/16/25 21:20 Calculated Osmolality 300 mOsm/kg (285-295) H 01/16/25 21:20 Calcium 9.0 mg/dL (8.5-10.5) 01/16/25 21:20 Total Bilirubin 1.1 mg/dL (0.15-1.2) 01/16/25 21:20 AST 40 U/L (0-32) H 01/16/25 21:20 ALT 45 U/L (0-33) H 01/16/25 21:20 Alkaline Phosphatase 84 U/L (35-105) 01/16/25 21:20 Total Protein 6.8 g/dL (6.6-8.7) 01/16/25 21:20 Albumin 4.1 g/dL (3.5-5.2) 01/16/25 21:20 Globulin 2.7 g/dL (1.3-4.6) 01/16/25 21:20 Folate > 20.0 ng/mL (4.8-37.3) 01/16/25 21:20 Prolactin 8.54 ng/mL (4.8-23.3) 01/16/25 21:20 HCG, Qual Negative (Negative) 01/16/25 21:20 Urine Color Dark yellow (Yellow) A 01/16/25 20:40 Urine Appearance Clear (CLEAR) 01/16/25 20:40 Urine pH 5.0 (5-7) 01/16/25 20:40 Ur Specific [place] 1.026 (1.005-1.030) 01/16/25 20:40 Urine Protein 1+ (Negative) A 01/16/25 20:40 Urine Glucose (UA) Negative (Normal) 01/16/25 20:40 Urine Ketones 1+ (Negative) H 01/16/25 20:40 Urine Blood Trace (Negative) A 01/16/25 20:40 Urine Nitrate Negative (Negative) 01/16/25 20:40 Urine Bilirubin Negative (Negative) 01/16/25 20:40 Urine Urobilinogen 1.0 mg/dL (Negative) 01/16/25 20:40 Ur Leukocyte Esterase Negative (Negative) 01/16/25 20:40 Urine RBC 0-2 /hpf (0-2) 01/16/25 20:40 Urine WBC 0-5 /hpf (0-5) 01/16/25 20:40 Ur Squamous Epith Cells 0-5 /hpf (0-5) 01/16/25 20:40 Amorphous Sediment Not Reportable 01/16/25 20:40 Urine Bacteria None seen /hpf (NONE) 01/16/25 20:40 Hyaline Casts 70.32 /lpf 01/16/25 20:40 Urine Opiates Screen Negative ng/mL (Negative) 01/16/25 20:40 Ur Barbiturates Screen Negative ng/mL (Negative) 01/16/25 20:40 Ur Phencyclidine Scrn Negative ng/mL (Negative) 01/16/25 20:40 Ur Amphetamines Screen Positive ng/mL (Negative) H 01/16/25 20:40 U Benzodiazepines Scrn Negative ng/mL (Negative) 01/16/25 20:40 Urine Cocaine Screen Negative ng/mL (Negative) 01/16/25 20:40 U Marijuana (THC) Screen Positive ng/mL (Negative) H 01/16/25 20:40 Hepatitis A IgM Ab Non-reactive (Nonreactive) 01/16/25 21:20 Hep Bs Antigen Non-reactive (Nonreactive) 01/16/25 21:20 Hep B Core Total Ab Non-reactive (Nonreactive) 01/16/25 21:20 Hepatitis C Antibody Non-reactive (Nonreactive) 01/16/25 21:20 HIV 1&2 Ab & HIV 1 Ag Non-reactive (Non-Reactiv) 01/16/25 21:20 HIV 1&2 Antibody Non-reactive (Non-Reactiv) 01/16/25 21:20 All radiology interpretation(s) finalized by discharge EKG Data EKG 1: Interpretation: EKG 01/16/2025 2259 sinus rhythm rate of 89 [place] normal 136 QTc [address] changes noted no significant change compared to 01/30/2024 Discharge Plan Discharge Patient Disposition: Admitted As Inpatient Admit Provider: Samra Remy Clinical Impression: Drug-induced psychotic disorder, Altered mental status, CAMMY (acute kidney injury), Leukocytosis, Borderline personality disorder Condition: Stable Coding Level of Care Code ED Stock Mixer for Elo Foote
--- OUTSIDE RECORDS SUMMARY | 2025-01-16 21:05 | XMS_ITS | Patient Health Record ---
Author Organization [facility] Address [address] [place] [address] Care Team Providers Care Traffic Routing Engineer Name Role Phone Shayy Mayo Primary Care Provider Allergies Allergen (clinical drug ingredient) Drug/Non Drug Allergy documented on EMR Reaction Allergy Type Onset Date Status amoxicillin Amoxicillin Unknown Drug Allergy Act rj diphenhydramine Benadryl Unknown Drug Allergy A ctive Sulfur Unknown Drug Allergy Active clindamycin Clindamycin Unknown Drug Allergy Act rj Penicillin Unknown Drug Allergy Active Reason For Referral No Information Medications Medication SIG (Take, Route, Fr equency, Duration) Notes Start Date End Date Status prednisoLONE Active hydrOXYzine HCl Acti ve CPAP Active Spiriva HandiHaler A ctive Advair Diskus Active lamoTRIgine Active Cymbalta Active Dupixent Active Social History Sex Assigned At : Social History Observation Description Sex Assigned At Female Plan Of Treatment No Information Insurance Providers Payer Name Payer Address Payer Phone Subscriber Number Group Number Insured Name Patient Relationship to Insured Coverage Start Date Coverage End Date [facility] are [employer] [address] [place] [address] [id number] Eladia Gonzalez Self - patient is the insured Medical (General) History Medical History History ICD Code E.O. A
--- OUTSIDE RECORDS SUMMARY | 2025-01-16 21:05 | XMS_ITS | Encounter Summary ---
Author Organization [facility] Address [address] [place] [address] Care Team Providers Care Knot Saw Operator Name Role Phone Aniceto Castaneda MD Primary Care Provider [phone] Reason for Visit * Reason Comments Provider Call Encounter Details Date Type Department Care Team (Late st Contact Info) Description 12/28/2024 Telephone [facility] Family Medicine [address] [address] Aniceto Castaneda MD [address] [address] Provider Call Social History Tobacco Use Types Packs/Day Years Used Date Smoking Tobacco: Former Cigarettes 0.4 11.1 2 024 - 08/23/2018 Smokeless Tobacco: Never Alcohol Use Standard Drinks/Week Comments Not Currently 0 (1 standard drink = 0.6 oz pur e alcohol) Feeling Safe Answer Date Recorded Are you in a relationship wi th someone who hurts you emotionally and/or physically? No 12/25/2024 Food Insecurity Answer Date Recorded Patient needs follow up regardin 09/07/2024 Transportation Needs Answer Date Record ed Patient needs follow up regardin 09/07/2024 Housing Stability Answer Date Recorded Social/Environmental Concerns Housing instabilit y 08/21/2024 Utility Needs Answer Date Recorded Patient needs follow up regardin 09/07/2024 Comments No Sex and Gender Information Value Date Recorded Sex Assigned at Female 05/16/2023 8:37 PM RESEARCH ASSOCIATE QUALITY CONTROL QC Legal Sex Female 12:19 AM RESEARCH ASSOCIATE QUALITY CONTROL QC Gender Identity Female 05/16/2023 8:37 PM RESEARCH ASSOCIATE QUALITY CONTROL QC Sexual Orientation Straight 05/16/2023 8: 37 PM RESEARCH ASSOCIATE QUALITY CONTROL QC documented as of this encounter Miscellaneous Notes * Telephone Encounter - Erin Moreno - 12/28/2024 9:58 AM CDT Copied from [facility] #[id number]. Topic: Medication Request >> Dec 28, 2024 9:45 AM Erin Michaud wrote: Pharmacy Calling: [facility] pharmacy [facility] Contact Name: [facility] Number: [phone] Medication: lamoTRIgine (LaMICtal) 200 mg tablet Call Notes: Caller has questions concerning a prescription. Patient is trying to refill early, lastsent on 12/26/24. falling asleep in the drive thru. Is the patient there at the pharmacy waiting to fill a prescription? Yes Is there an encounter open? No Transferred to Backline/COMMUNITY DIETITIAN Line and Yadira answered call. documented in this encounter Plan of Treatment Upcoming Encounters Date Type Department Care Team (Late st Contact Info) Description 02/13/2025 10:30 AM CDT Appointment [facility] Respiratory Therapy Services [place] [address] [place] [address] documented as of this encounter Visit Diagnoses Not on filedocumented in this encounter Additional Health Concerns Infection Onset Date Last Indicated Resolved Time MRSA Comment:12/22/24 L LUNG 12/22/2024 12/22/2024 Assessment Noted Time PHQ-9 Depression Total Score: 2 12/27/19 25 1:18 PM CDT documented as of this encounter Care Teams Knot Saw Operator Relationship Specialty Start Date End Date Aniceto Castaneda MD [address] [address] PCP - General Family Practice 12/26/24 documented as of this encounter
--- OUTSIDE RECORDS SUMMARY | 2025-01-16 21:05 | XMS_ITS | Encounter Summary ---
Author Organization [facility] Address [address] [place] [address] Care Team Providers Care Armature Varnisher Name Role Phone Aniceto Castaneda MD Primary Care Provider [phone] Reason for Visit * Reason Onset Date Comments Medication Refill 01/10/2025 Encounter Details Date Type Department Care Team (Late st Contact Info) Description 01/10/2025 Refill [facility] Family Medicine [address] [address] Aniceto Castaneda MD [address] [address] Tremor Social History Tobacco Use Types Packs/Day Years Used Date Smoking Tobacco: Former Cigarettes 0.4 11.1 2 024 - 08/23/2018 Smokeless Tobacco: Never Alcohol Use Standard Drinks/Week Comments Not Currently 0 (1 standard drink = 0.6 oz pur e alcohol) Feeling Safe Answer Date Recorded Are you in a relationship wi th someone who hurts you emotionally and/or physically? No 01/07/2025 Food Insecurity Answer Date Recorded Patient needs follow up regardin 09/07/2024 Transportation Needs Answer Date Record ed Patient needs follow up regardin 09/07/2024 Housing Stability Answer Date Recorded Social/Environmental Concerns Housing instabilit y 08/21/2024 Utility Needs Answer Date Recorded Patient needs follow up regardin 09/07/2024 Comments No Sex and Gender Information Value Date Recorded Sex Assigned at Female 05/16/2023 8:37 PM SALES RECEPTIONIST Legal Sex Female 12:19 AM SALES RECEPTIONIST Gender Identity Female 05/16/2023 8:37 PM SALES RECEPTIONIST Sexual Orientation Straight 05/16/2023 8: 37 PM SALES RECEPTIONIST documented as of this encounter Miscellaneous Notes * Telephone Encounter - Grazyna Oviedo LPN - 01/10/2025 4:09 PM CDT 01/10/2025 4:16 PM Patient stopped by clinic and stated she will be going into [facility] 3:16 and is going to need to have a 3 month supply of all of her medications on hand when she goes in. Then she will need an additional 90 day supply as well once those are up. She should have the initial amount covered based on the original prescription, however there was not any refills sent in for the pended medications and she will need those sent in. Grazyna GARCIA documented in this encounter Plan of Treatment Upcoming Encounters Date Type Department Care Team (Late st Contact Info) Description 02/13/2025 10:30 AM CDT Appointment [facility] Respiratory Therapy Services [place] [address] [facility] [address] [place] [phone] documented as of this encounter Visit Diagnoses Diagnosis Tremor Abnormal involuntary movements documented in this encounter Additional Health Concerns Infection Onset Date Last Indicated Resolved Time MRSA Comment:12/22/24 L LUNG 12/22/2024 12/22/2024 Assessment Noted Time PHQ-9 Depression Total Score: 2 12/27/19 25 1:18 PM CDT documented as of this encounter Care Teams Armature Varnisher Relationship Specialty Start Date End Date Aniceto Castaneda MD [address] [phone] PCP - General Family Practice 12/26/24 documented as of this encounter
--- OUTSIDE RECORDS SUMMARY | 2025-01-16 21:05 | XMS_ITS | Encounter Summary ---
Author Organization [facility] Address [address] [place] [address] Care Team Providers Care Visual Stylist Name Role Phone Aniceto Castaneda MD Primary Care Provider [phone] Encounter Details Date Type Department Care Team (Late st Contact Info) Description 12/26/2024 Results Follow-Up [facility] Emergency Medicine [address] [place] [address] Heather Rojas, RN BLOOD CULTURE, BLOOD CULTURE Social History Tobacco Use Types Packs/Day Years [...] Sex Assigned at Female 05/16/2023 8:37 PM OPERATIONS CLERK Legal Sex Female 12:19 AM OPERATIONS CLERK Gender Identity Female 05/16/2023 8:37 PM OPERATIONS CLERK Sexual Orientation Straight 05/16/2023 8: 37 PM OPERATIONS CLERK documented as of this encounter Plan of Treatment Upcoming Encounters Date Type Department Care Team (Late st Contact Info) Description 02/13/2025 10:30 AM CDT Appointment [facility] Respiratory Therapy Services [place] [address] [facility] [address] [place] [phone] documented as of this encounter Visit Diagnoses Not on filedocumented in this encounter Additional Health Concerns Infection Onset Date Last Indicated Resolved Time MRSA Comment:12/22/24 L LUNG 12/22/2024 12/22/2024 Assessment Noted Time PHQ-9 Depression Total Score: 2 12/27/19 25 1:18 PM CDT documented as of this encounter Care Teams Visual Stylist Relationship Specialty Start Date End Date Aniceto Castaneda MD [address] [place] [phone] PCP - General Family Practice 12/26/24 documented as of this encounter
--- OUTSIDE RECORDS SUMMARY | 2025-01-16 21:05 | XMS_ITS | Encounter Summary ---
Author Organization [facility] Address [address] [place] [address] Care Team Providers Care Seam Hammerer Name Role Phone Aniceto Castaneda MD Primary Care Provider [phone] Encounter Details Date Type Department Care Team (Late st Contact Info) Description 01/10/2025 External Device Data [facility] ABSTRACTION Provider, Abstract NO ADDRESS ON FILE Social History Tobacco Use Types Packs/Day Years [...] Sex Assigned at Female 05/16/2023 8:37 PM TOP CARRIER Legal Sex Female 12:19 AM TOP CARRIER Gender Identity Female 05/16/2023 8:37 PM TOP CARRIER Sexual Orientation Straight 05/16/2023 8: 37 PM TOP CARRIER documented as of this encounter Plan of Treatment Upcoming Encounters Date Type Department Care Team (Late st Contact Info) Description 02/13/2025 10:30 AM CDT Appointment [facility] Respiratory Therapy Services [place] [address] [phone] documented as of this encounter Visit Diagnoses Not on filedocumented in this encounter Additional Health Concerns Infection Onset Date Last Indicated Resolved Time MRSA Comment:12/22/24 L LUNG 12/22/2024 12/22/2024 Assessment Noted Time PHQ-9 Depression Total Score: 2 12/27/19 25 1:18 PM CDT documented as of this encounter Care Teams Seam Hammerer Relationship Specialty Start Date End Date Aniceto Castaneda MD [address] [facility] [address] [place] [address] PCP - General Family Practice 12/26/24 documented as of this encounter
--- OUTSIDE RECORDS SUMMARY | 2025-01-16 21:05 | XMS_ITS | Clinical Summary ---
Author Organization [facility] Address [address] [place] [address] Care Team Providers Care Senior Actuarial Analyst Name Role Phone Antonia Avila DO Primary Care Provider [phone] Allergies Active Allergy Reactions Criticality Noted Date Comments Amoxicillin Hives Medium 04/17/2021 Clindamycin Hives,Unknown Medium 03/13/2015 Diphenhydramine Hcl Hives Medium 09/18/2017 Gabapentin Stomach upset,Nausea And Vomiting Low 02/10/2023 Methylprednisolone Sodium Succ Nausea & Vomiting Low 12/05/2024 Penicillins Hives,Nausea And Vomiting,Rash,Unknown High 11/21/2012 Sulfa Rash Medium 04/17/2021 Sulfa (Sulfonamide Antibiotics) Anaphylaxis,Hives High 02/13/[address] (CYMBALTA) 60 mg capsule TK 1 C PO D 0 Active EPINEPHrine 0.3 mg/0.3 mL auto-injection syringe Inject 0.3 mg into the muscle as instructed 9 Active hydrOXYzine (ATARAX) 50 mg tablet TK 1 T PO QID PRA 0 Active mirtazapine (REMERON) 7.5 mg tablet TK 1 T PO HS 0 Active nebulizer accessories kit Use as directed with nebulizer 0 Active nebulizer and compressor device Use to administer nebulized medications 0 Active prazosin (MINIPRESS) 5 mg capsule Take 5 mg by mouth nightly 1 Active SUMAtriptan (IMITREX) 25 mg tablet 1 Active albuterol 2.5 mg /3 mL (0.083 %) nebulizer solution Inhale 2.5 mg every 4 (four) hours as needed [address] (CYMBALTA) 30 mg capsule TAKE ONE CAPSULE BY MOUTH DAILY. TO BE TAKEN WITH 60MG FOR A TOTAL OF 90MG. [address] (PROTONIX) 40 mg EC tablet Take 1 tablet (40 mg total) by mouth 2 (two) times a day 60 tablet 5 1 Active fluticasone propionate (FLONASE) 50 mcg/actuation nasal spray Administer 2 sprays into each nostril daily 16 g 6 1 Active albuterol HFA (ProAir HFA) 90 mcg/actuation inhaler Inhale 2 puffs every 4 (four) hours as needed for wheezing 17 g 2 2 Active Advair Diskus 500-50 mcg/dose diskus inhaler INHALE 1 PUFF BY MOUTH TWICE DAILY. RINSE MOUTH WITH WATER AFTER USE. DO NOT SWALLOW 60 each 3 Active oxybutynin (DITROPAN) 5 mg tablet Take 5 mg by mouth 3 (three) times a day 2 Active tiZANidine (ZANAFLEX) 2 mg tablet 3 Active loratadine (CLARITIN) 10 mg tablet Take 10 mg by mouth daily Active montelukast (SINGULAIR) 10 mg tablet Take 10 mg by mouth daily 3 Active lamoTRIgine (LaMICtal) 100 mg tablet Take 1 tablet by mouth daily Active duloxetine HCl (CYMBALTA ORAL) Take 120 mg by mouth daily Fibromyalgia, neuropahy Active hydrOXYzine (ATARAX) 50 mg tablet Take 1 tablet by mouth 4 (four) times a day Active dupilumab (Dupixent Pen) pen injectorIndicati ons:Severe persistent asthma with acute exacerbation (HCC),Eosinophil ic asthma Inject 2 mL (300 mg total) under the skin every 14 (fourteen) days 4 mL 11 3 Active benzonatate (TESSALON) 100 mg capsule Take 1 capsule (100 mg total) by mouth 3 (three) times a day as needed 3 Active Active Problems Problem Noted Date Diagnosed Date Paradoxical vocal fold motion disorder Assessment & Plan (07/23/2020 4:09 PM CLOTH WASHER OPERATOR): I have recommended laryngeal control therapy here at the [facility] in order to control the patient's symptoms. The patient's diagnosis was discussed in detail along with how therapy can improve it. Anxiety 05/08/2020 Gastroesophageal reflux disease without esophagi tis 05/08/2020 Tremor 01/23/2020 Severe persistent asthma without complication 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 Generalized anxiety disorder 06/14/2019 Moderate episode of recurrent major depressive d isorder 06/14/2019 Primary insomnia 06/14/2019 Acute exacerbation of asthma with allergic rhini tis 10/21/2018 Resolved Problems Problem Noted Date Diagnosed Date Resolved Date Cerumen impaction 07/23/2020 07/13/2022 Assessment & Plan (07/23/2020 5:19 PM CLOTH WASHER OPERATOR): Binocular microscopy of the left external auditory canal with cerumen removal was performed. After removal, the external auditory canal was clear, tympanic membrane was intact, and middle appeared aerated. We advised against the use of Q-tips. Current smoker 07/21/2020 07/13/2022 Cigarette nicotine dependence, uncomplicated 5 07/13/2022 Encounters Date Type Department Care Team Description 12/19/2024 Telephone [facility] [address] [place] [address] 4th Floor [address] [place] [address] Brenda Zuñiga RN 12/14/2024 2:14 PM CDT - 12/14/2024 11:59 PM CDT Hospital Encounter [facility] [address] [place] [id number] Discharge Disposition: Discharge to home or self care 12/08/2024 Telephone [facility] [address] [place] [address] Health 4th Floor [address] [place] [address] Danyell Weeks Communication; Discuss Test Results 12/05/2024 12:30 PM CDT Office Visit [facility] [address] [facility] 4th Floor [address] [place] [address] Trigeminal neuralgia from Last 3 Months Immunizations Immunization Administration Dates Next Due Influenza, Quadrivalent, [place] Culture-based MDCK, Preservative Free, Antibiotic Free, Intramuscular 07/13/2022,03/03/2021 Influenza, Trivalent, Cell C ulture-based MDCK, Preservative Free, Antibiotic Free, Intramuscular 03/03/2021 Td, adsorbed 08/12/1999 Family History Medical History Relation Name Comments Hypertension Mother Relation Name Status Comments Mother Social History Tobacco Use Types Packs/Day Years Used Date Smoking Tobacco: Every Day Cigarettes Vaping Smokeless Tobacco: Never Tobacco Cessation:Ready to Q uit: Not Asked; Counseling Given: Not Answered Hunger Vital Sign Answer Date Recorded Within the past 12 months, y ou worried that your food would run out before you got the money to buy more. Never true 12/06/19 25 Within the past 12 months, t he food you bought just didn't last and you didn't have money to get more. Never true 12/05/2024 Comments Unknown Sex and Gender Information Value Date Recorded Sex Assigned at Not on file Legal Sex Female 3:21 PM CDT Gender Identity Female 07/23/2020 11:44 AM CLOTH WASHER OPERATOR Sexual Orientation Straight 07/23/2020 11 :44 AM CLOTH WASHER OPERATOR Obstetrics History Last Filed Vital Signs Vital Sign Reading Time Taken Comments Blood Pressure 137/81 12/05/2024 12:30 PM CDT Pulse 101 12/05/2024 12:30 PM CDT Temperature 36.8 C (98.3 F) 12/05/2024 12:30 PM CDT Respiratory Rate 18 07/13/2022 8:53 AM CLOTH WASHER OPERATOR Oxygen Saturation 98% 12/05/2024 12:30 PM CDT Inhaled Oxygen Concentration - - Weight 99 kg (218 lb 4.8 oz) 12/05/2024 12:30 PM CDT Height 170.2 cm (5' 7 ) 12/05/2024 12:30 PM CDT Body Mass Index 34.19 12/05/2024 12:30 PM CDT Plan of Treatment Health Maintenance Due Date Last Done Comments Cervical Cancer Screening 1985 Depression Screening 1985 Hepatitis C Screening 1985 Varicella Vaccines (1 of 2 - 13+ 2-dose series) 1998 DTaP/Tdap/Td Vaccine (1 - Tdap) 08/13/1999 0 Hepatitis B Screening 2003 Regular Well Visit/Exam 18-64 2003 Pneumococcal vaccine <65 (1 of 2 - PCV) 01/18/2004 HPV Vaccines (1 - 3-dose SCD M series) 01/18/2012 Influenza Vaccine (#1) 2025 4, 07/13/2022, 03/03/2021, Additional history exists Procedures Procedure Name Priority Date/Time Associated Diagnosis Comments NEURO MR OUTSIDE REFERENCE Routine 12/14/2024 2:14 PM CDT from Last 3 Months Results * Neuro MR Outside Reference (12/14/2024 2:14 PM CDT) Impressions [facility] - 12/14/2024 2:14 PM CDT These images are for Reference purposes only and have not been reviewed by [facility]. There will be no report generated by a [facility] Radiologist. Narrative [facility] - 12/14/2024 2:14 PM CDT EXAMINATION: Images For Reference Purposes Only Jose Reynolds MD IMG MRI PROCEDURES F inal Result [facility] from Last 3 Months [place] [facility] Care Teams Senior Actuarial Analyst Relationship Specialty Start Date End Date Antonia Avila DO [address] [place] [address] PCP - General Family Practice 05/06/20
--- OUTSIDE RECORDS SUMMARY | 2025-01-16 21:05 | XMS_ITS | Clinical Summary ---
Author Organization [facility] Address [address] [place] [address] Phone Care Team Providers Care Training And Development Director Name Role Phone Aniceto Castaneda MD Primary Care Provider [phone] Allergies Active Allergy Reactions Criticality Noted Date Comments Amoxicillin Rash Low 04/17/2021 Carbamazepine Itching Low 05/08/2024 Clindamycin Hives High 03/13/2015 Diphenhydramine Hcl Hives High 09/18/2017 Diphenhydramine-Zinc Acetate Unknown 025 Gabapentin Abdominal Pain Low 02/10/2023 Methylprednisolone Sodium Succ Nausea and Vomiting Low 12/05/2024 Penicillins Hives,Nausea and Vomiting,Rash High 11/21/2012 Sulfa (Sulfonamide Antibiotics) Anaphylaxis,Hives High 02/13/2011 Sulfur Rash Medium 04/17/2021 Medications nebulizer Length of need 99 months Nebulizer with compressor, Kit: Permanent Nebulizer Kit, 1 per 6 months, filters , areosol mask: Yes. Name of Medication Xopenex with Ipratropium. ICD: J45.51 1 Each 08/12/19 24 Active fluticasone propion-salmeter oL (Wixela Inhub) 100-50 mcg/dose disk inhalerIndicatio ns:Severe persistent asthma, unspecified whether complicated (CMS/HCC) Take 1 Puff by inhalation 2 times daily. 1 Each 08/19/19 24 Active ipratropium-albu teroL (DUONEB) 0.5 mg-3 mg(2.5 mg base)/3 mL Solution for NebulizationIndi cations:Severe persistent asthma, unspecified whether complicated (CMS/HCC) Take 3 mL by inhalation every 6 hours as needed for Shortness of Breath. 90 Each 04/17/20 24 Active acetaminophen (TYLENOL) 325 mg tablet Take 2 Tablets (650 mg) by mouth every 6 hours as needed for Temperature (For temperature above 99.5F (37.5C)). 08/25/19 25 Active albuterol-budeso nide 90-80 mcg/actuation HFA Aerosol Inhaler Take by inhalation. Active aspirin (ECOTRIN EC) 81 mg Tablet, Delayed Release (E.C.) Take 81 mg by mouth daily. 09/23/19 25 Active rimegepant (Nurtec ODT) 75 mg Tablet, Rapid Dissolve Take one tablet as needed at onset of migraine. Max dose in 24hours is 75mg 8 Tablet 3 12/27/19 25 Active baclofen (LIORESAL) 10 mg tabletIndication s:Trigeminal neuralgia of left side of face Take 1 Tablet (10 mg) by mouth 3 times daily. For trigeminal neuralgia. 90 Tablet 1 12/27/19 25 Active DULoxetine (CYMBALTA) 60 mg Capsule, Delayed Release(E.C.) Take 2 Capsules (120 mg) by mouth daily. 180 Capsule 1 12/27/19 25 Active famotidine (PEPCID) 20 mg tabletIndication s:Gastroesophage al reflux disease without esophagitis Take 1 Tablet (20 mg) by mouth 2 times daily. 180 Tablet 3 12/27/19 25 Active oxyBUTYnin (DITROPAN XL) 5 mg Extended Release 24 hour tabletIndication s:Mixed stress and urge urinary incontinence Take 1 Tablet (5 mg) by mouth daily. 90 Tablet 3 12/27/19 25 Active busPIRone (BUSPAR) 15 mg TabletIndication s:Generalized anxiety disorder Take 1 Tablet (15 mg) by mouth 3 times daily as needed for Anxiety. 90 Tablet 11 12/27/19 25 Active dupilumab (Dupixent Pen) 300 mg/2 mL Pen InjectorIndicati ons:Eosinopenia Inject 2 mL (300 mg) by subcutaneous injection every 2 weeks. 4 mL 12/27/19 25 Active fluconazole (DIFLUCAN) 150 mg tabletIndication s:Vaginal yeast infection Take 1 Tablet (150 mg) by mouth daily. 1 Tablet 12/28/19 25 Active predniSONE (DELTASONE) 5 mg tablet 50 mg x 2 days 40 mg x 2 days 30 mg x 2 days 20 mg x 2 days 10 mg x 2 days 5 mg x 2 days 62 Tablet 01/08/20 25 Active lamoTRIgine (LaMICtal) 200 mg tabletIndication s:Trigeminal neuralgia of left side of face Take 1 Tablet (200 mg) by mouth 2 times daily. 180 Tablet 1 01/09/20 25 Active propranoloL (INDERAL) 20 mg tabletIndication s:Tremor Take 1 Tablet (20 mg) by mouth 2 times daily. 180 Tablet 01/12/20 25 Active albuterol sulfate HFA 90 mcg/actuation aerosol inhaler Take 2 Puffs by inhalation every 6 hours as needed for Shortness of Breath or Wheezing. 8.5 Gram 01/12/20 25 Active busPIRone (BUSPAR) 15 mg TabletIndication s:Generalized anxiety disorder Take 1 Tablet (15 mg) by mouth 3 times daily as needed for Anxiety. 90 Tablet 11 08/23/19 24 025 Discontinu ed(Reorder ) famotidine (PEPCID) 20 mg tabletIndication s:Gastroesophage al reflux disease without esophagitis Take 1 Tablet (20 mg) by mouth 2 times daily. 180 Tablet 3 08/30/19 24 025 Discontinu ed(Reorder ) oxyBUTYnin (DITROPAN XL) 5 mg Extended Release 24 hour tabletIndication s:Mixed stress and urge urinary incontinence Take 1 Tablet (5 mg) by mouth daily. 90 Tablet 3 08/30/19 24 025 Discontinu ed(Reorder ) albuterol sulfate HFA 90 mcg/actuation aerosol inhaler Take 2 Puffs by inhalation every 6 hours as needed for Shortness of Breath or Wheezing. 8.5 Gram 04/17/20 24 025 Discontinu ed(Reorder ) DULoxetine (CYMBALTA) 60 mg Capsule, Delayed Release(E.C.) TAKE 2 CAPSULES BY MOUTH DAILY. 180 Capsule 1 05/26/19 25 025 Discontinu ed(Reorder ) baclofen (LIORESAL) 10 mg tabletIndication s:Trigeminal neuralgia of left side of face Take 1 Tablet (10 mg) by mouth 3 times daily. For trigeminal neuralgia. 90 Tablet 1 06/19/19 25 025 Discontinu ed(Reorder ) propranoloL (INDERAL) 20 mg tabletIndication s:Tremor Take 1 Tablet (20 mg) by mouth 2 times daily. 180 Tablet 06/19/19 025 Discontinu ed(Reorder ) dupilumab (Dupixent Pen) 300 mg/2 mL Pen Injector INJECT 2 ML UNDER THE SKIN EVERY 2 WEEKS. NEEDS TO BE SEEN BY SPECIALIST TO STAY ON THIS MEDICATION 4 mL 08/03/19 025 Discontinu ed(Reorder ) lamoTRIgine (LaMICtal) 200 mg tabletIndication s:Trigeminal neuralgia of left side of face Take 1 Tablet (200 mg) by mouth 2 times daily. 60 Tablet 1 09/16/19 25 025 Discontinu ed(Reorder ) rimegepant (Nurtec ODT) 75 mg Tablet, Rapid Dissolve Take one tablet as needed at onset of migraine. Max dose in 24hours is 75mg 8 Tablet 3 09/16/19 25 025 Discontinu ed(Reorder ) doxycycline hyclate (VIBRAMYCIN) 100 mg tablet Take 1 Tablet (100 mg) by mouth 2 times daily for 10 days. 20 Tablet 12/26/19 25 025 lamoTRIgine (LaMICtal) 200 mg tabletIndication s:Trigeminal neuralgia of left side of face Take 1 Tablet (200 mg) by mouth 2 times daily. 60 Tablet 1 12/27/19 25 025 Discontinu ed(Reorder ) propranoloL (INDERAL) 20 mg tabletIndication s:Tremor Take 1 Tablet (20 mg) by mouth 2 times daily. 180 Tablet 12/27/19 25 025 Discontinu ed(Reorder ) albuterol sulfate HFA 90 mcg/actuation aerosol inhaler Take 2 Puffs by inhalation every 6 hours as needed for Shortness of Breath or Wheezing. 8.5 Gram 12/27/19 25 025 Discontinu ed(Reorder ) metroNIDAZOLE (FLAGYL) 500 mg tabletIndication s:Trichomonal infection,BV (bacterial vaginosis) Take 1 Tablet (500 mg) by mouth 2 times daily for 7 days. 14 Tablet 12/28/19 25 025 Active Problems Problem Noted Date Diagnosed Date Pneumonia of left lung due t o methicillin resistant Staphylococcus aureus (MRSA) 12/23/2024 Methamphetamine dependence 12/23/2024 Toxic encephalopathy 12/22/2024 Acute respiratory failure with hypoxia Acute metabolic encephalopathy 12/22/2024 Polysubstance abuse 12/22/2024 Community acquired pneumonia of left lower lobe of lung 12/22/2024 Phencyclidine (PCP) intoxication, with delirium 12/22/2024 Stroke-like symptoms 08/22/2024 Asymptomatic bradycardia 08/22/2024 Chest pain 08/22/2024 Cerebrovascular accident (CVA) 08/21/2024 Acute left-sided weakness 08/21/2024 Left-sided sensory deficit present 08/21/2024 NSTEMI (non-ST elevated myocardial infarction) 0 08/26/2023 Severe persistent asthma 08/19/2023 Seizure disorder, simple partial 08/12/2023 Moderate episode of recurrent major depressive d isorder 07/09/2023 Tremor 01/23/2020 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 Primary insomnia 06/14/2019 Generalized anxiety disorder 06/14/2019 Resolved Problems Problem Noted Date Diagnosed Date Resolved Date Shortness of breath 08/19/2023 02/22/20 24 Eosinophilia 08/12/2023 02/22/2024 Seizure disorder 08/11/2023 02/22/2024 Overview (08/11/2023): possible seizures, per pt PCP thinks might have had some seizures Severe persistent asthma wit h acute exacerbation 08/10/2023 02/22/2024 Mild intermittent asthma without complication 07/09/19 24 08/11/2023 Current smoker 07/21/2020 05/21/2023 Severe persistent asthma without complication 06/27/1907/09/2023 Moderate episode of recurren t major depressive disorder 06/14/2019 05/21/2023 Moderate persistent asthma w ithout complication 06/14/2019 07/09/2023 Moderate persistent allergic asthma 10/21/2018 07/09/2023 Acute exacerbation of asthma with allergic rhinitis 10/21/2018 07/09/2023 Cigarette dependence 03/13/2015 024 Encounters Date Type Department Care Team Description 01/10/2025 [facility] [address] [phone] Aniceto Castaneda MD Tremor 01/10/2025 External Device Data [facility] ABSTRACTION Provider, Abstract 01/08/2025 [facility] [address] [phone] Yelena Ca, DIRECTOR TELEHEALTH Trigeminal neuralgia of left side of face 01/07/2025 6:32 PM CDT - 01/07/2025 7:38 PM CDT [facility] Emergency Medicine [address] [facility] [address] [place] [phone] Ge Guerra MD Contact dermatitis, unspecified contact dermatitis type, unspecified trigger (Primary Dx) Discharge Disposition: Home or Self Care 01/07/2025 Travel 01/04/2025 6:01 PM CDT - 01/04/2025 10:47 PM CDT [facility] Emergency Department [address] [place] [address] Ray Conti MD Anxiety (Primary Dx) Discharge Disposition: Home or Self Care 01/04/2025 Orders Only [facility] Admitting [address] [place] [phone] Swati Bermeo MD Encounter for disability determination (Primary Dx); Asthma, unspecified asthma severity, unspecified whether complicated, unspecified whether persistent 01/03/2025 2:20 PM CDT - 01/04/2025 8:57 AM CDT Emergency [facility] Emergency Services [address] [facility] [address] [place] [address] Jose Aj MD Toxic encephalopathy, unspecified toxin (Primary Dx); Drug ingestion, accidental or unintentional, initial encounter; Hypokalemia Discharge Disposition: Home or Self Care 12/28/2024 Telephone [facility] [address] [phone] Aniceto Castaneda MD Provider Call 12/28/[address] [phone] Aniceto Castaneda MD Medication Review 12/27/2024 Results Follow-Up [facility] [address] [phone] Yelena Ca FNP HSV TYPE 1 AND 2 IGG ANTIBODY, HIV DETECTION W/REFLX CONFIRMATION, VAGINOSIS/VAGINITIS PANEL PLUS 12/27/2024 Orders Only [facility] [address] [phone] Yelena Ca FNP Trichomonal infection (Primary Dx); BV (bacterial vaginosis); Vaginal yeast infection 12/26/2024 1:20 PM CDT Office Visit [facility] [address] [phone] Yelena Ca FNP Eosinopenia (Primary Dx); Trigeminal neuralgia of left side of face; Tremor; Gastroesophageal reflux disease without esophagitis; Mixed stress and urge urinary incontinence; Generalized anxiety disorder; Screen for STD (sexually transmitted disease) 12/26/2024 External Device Data [facility] ABSTRACTION Provider, Abstract 12/26/2024 Results Follow-Up [facility] Emergency Medicine [address] [phone] Heather Rojas RN BLOOD CULTURE, BLOOD CULTURE 12/25/2024 12:52 AM CDT - 12/25/2024 3:55 AM CDT Emergency [facility] Emergency Medicine [address] [place] [phone] Ge Guerra MD Folliculitis (Primary Dx) Discharge Disposition: Home or Self Care 12/25/2024 Travel 12/22/2024 12:07 PM CDT - 12/23/2024 7:15 PM CDT Hospital Encounter [facility] Cardiac Medical Intensive Care Unit [address] [place] [phone] Clive Dodge MD Raval, MD Kenyon Murry, Maritza Eastman MD Phencyclidine (PCP) intoxication, with delirium ([facility]) Discharge Disposition: Left Against Medical Advice 12/21/2024 Refill [facility] [address] [place] [address] Loan Galeano, DIRECTOR TELEHEALTH Gastroesophageal reflux disease without esophagitis 12/20/2024 External Device Data [facility] ABSTRACTION Provider, Abstract 12/05/2024 External Device Data [facility] ABSTRACTION Provider, Abstract 11/14/2024 External Device Data [facility] ABSTRACTION Provider, Abstract 11/02/2024 Refill [facility] [address] [place] [address] Loan Galeano, SHEBA Gastroesophageal reflux disease without esophagitis from Last 3 Months Immunizations Immunization Administration Dates Next Due (TDVAX)(7 YRS UP) TETANUS AN D DIPHTHERIA TOXOIDS, ADSORBED (2 LF OF TETANUS TOXOID AND 2 LF OF DIPHTHERIA TOXOID), 0.5ML (PF), IM 08/12/1999 INFLUENZA VACCINE QUADRIVALE NT 6 MOS UP CELL DERIVED PF IM 07/13/2022,03/03/2021 INFLUENZA VACCINE QUADRIVALENT 6 MOS UP IM 07/09 Family History Medical History Relation Name Comments Healthy Father Asthma Maternal Grandfather Delonte Diegoshaw Anemia Maternal Grandmother Cassandra Restrepo Breast Cancer Maternal Grandmother Cassandra Mesha Restrepo Cancer Maternal Grandmother Cassandra Restrepo Diabetes Maternal Grandmother Cassandra Restrepo Stroke Maternal Grandmother Cassandra Restrepo Alzheimer's Disease Mother Jessica Terrazas Healthy Mother Jessica Terrazas Hypertension Mother Jessica Terrazas Migraines Mother Jessica Terrazas Relation Name Status Comments Father Alive Maternal Grandfather Delonte Restrepo Alive Maternal Grandmother Cassandra Restrepo Mother Jessica Terrazas Alive Social History Tobacco Use Types Packs/Day Years Used Date Smoking Tobacco: Former Cigarettes 0.4 11.1 2 024 - 08/23/2018 Smokeless Tobacco: Never Tobacco Cessation:Counseling Given: Not Answered Alcohol Use Standard Drinks/Week Comments Not Currently [...] Sex Assigned at Female 05/16/2023 8:37 PM BUSINESS RELATIONS MANAGER Legal Sex Female 12:19 AM BUSINESS RELATIONS MANAGER Gender Identity Female 05/16/2023 8:37 PM BUSINESS RELATIONS MANAGER Sexual Orientation Straight 05/16/2023 8: 37 PM BUSINESS RELATIONS MANAGER Last Filed Vital Signs Vital Sign Reading Time Taken Comments Blood Pressure 129/71 01/07/2025 6:37 PM CDT Pulse 94 01/04/2025 7:02 AM CDT Temperature 36.8 C (98.2 F) 01/07/2025 6:37 PM CDT Respiratory Rate 15 01/07/2025 6:37 PM CDT Oxygen Saturation 98% 01/07/2025 6:37 PM CDT Inhaled Oxygen Concentration - - Weight 98.1 kg (216 lb 3.2 oz) 01/07/2025 6:37 P M CDT Height 170.2 cm (5' 7 ) 01/07/2025 6:37 PM CDT Body Mass Index 33.86 01/07/2025 6:37 PM CDT Plan of Treatment Upcoming Encounters Date Type Department Care Team (Late st Contact Info) Description 02/13/2025 10:30 AM CDT Appointment [facility] Respiratory Therapy Services [place] [address] [place] [address] Health Maintenance Due Date Last Done Comments DTAP/TDAP/TD VACCINES (2 - Tdap) 08/13/1999 08/12/19 00 HEPATITIS B VACCINES (1 of 3 - 19+ 3-dose series) 01/18/2004 HPV VACCINES (1 - 3-dose SCD M series) 01/18/2012 HPV/Cotest (21-29) 01/24/2017 01/25/2012 HPV/Cotest (30-65) 01/24/2017 01/25/2012 INFLUENZA VACCINE (#1) 2024 , 07/13/2022, 07/06/2022, Additional history exists Pre-Diabetes and Diabetes Screening 08/22/2027 08/21/2024, 08/26/2023, 02/15/2020 CERVICAL CANCER SCREENING 09/06/2027 PAP SMEAR 09/06/2027 09/05/2024, 01/15, 11/10/2010, Additional history exists Procedures Procedure Name Priority Date/Time Associated Diagnosis Comments ETHANOL LEVEL Stat 01/04/2025 6:31 PM CDT COMPREHENSIVE METABOLIC PANEL Stat 01/04/2025 6:31 PM CDT CBC WITH DIFFERENTIAL Stat 01/04/2025 6:31 PM CDT MAGNESIUM LEVEL Stat 01/03/2025 5:15 PM CDT TROPONIN 2 HR, 5TH GEN Timed Study 01/03/2025 5:15 PM CDT XR CHEST PA OR AP 1 VW Stat 01/03/2025 4:[address] HEAD WO CONTRAST Stat 01/03/2025 4 :12 PM CDT EKG 12-LEAD Stat 01/03/2025 2:48 PM CDT TROPONIN BASELINE, 5TH GEN Stat 01/03/2025 2:34 PM CDT ETHANOL LEVEL Stat 01/03/2025 2:34 PM CDT ACETAMINOPHEN LEVEL Stat 01/03/2025 2 :34 PM CDT SALICYLATE LEVEL Stat 01/03/2025 2:34 PM CDT EXTRA TUBE (GODFREY) Stat 01/03/2025 2:3 4 PM CDT EXTRA TUBE (BLUE) Stat 01/03/2025 2:3 4 PM CDT EXTRA TUBE Stat 01/03/2025 2:34 PM CDT COMPREHENSIVE METABOLIC PANEL Stat 01/03/2025 2:34 PM CDT CBC WITH DIFFERENTIAL Stat 01/03/2025 2:34 PM CDT TELEMETRY REPORT 12/29/2024 11:5 9 AM CDT VAGINOSIS/VAGINITIS PANEL PLUS Routine 12/26/2024 3:07 PM CDT Screen for STD (sexually transmitted disease) HIV DETECTION W/REFLX CONFIRMATION Routine 12/26/2024 1:49 PM CDT Screen for STD (sexually transmitted disease) HSV TYPE 1 AND 2 IGG ANTIBODY Routine 12/26/2024 1:49 PM CDT Screen for STD (sexually transmitted disease) SYPHILIS SEROLOGY W/REFLEX Routine 12/26/2024 1:49 PM CDT Screen for STD (sexually transmitted disease) BLOOD CULTURE Stat 12/25/2024 2:46 AM CDT BLOOD CULTURE Stat 12/25/2024 2:46 AM CDT LACTIC ACID Stat 12/25/2024 2:36 AM CDT COMPREHENSIVE METABOLIC PANEL Stat 12/25/2024 2:36 AM CDT CBC WITH DIFFERENTIAL Stat 12/25/2024 2:36 AM CDT BLOOD CULTURE Stat 12/25/2024 2:36 AM CDT BLOOD CULTURE Stat 12/25/2024 2:36 AM CDT XR CHEST PA OR AP 1 VW Stat 12/25/2024 2:00 AM CDT XR ABDOMEN FOR FEEDING TUBE 1 VW Stat 12/23/2024 3:20 PM CDT POC LACTIC ACID Routine 12/23/2024 2:41 PM CDT BLOOD GAS,(INCL. H+H, LYTES, GLUC) Routine 12/23/2024 2:41 PM CDT POC GLUCOSE Routine 12/23/2024 11:39 AM CDT RAPID EEG Routine 12/23/2024 9:39 AM CDT BLOOD GAS VENOUS Routine 12/23/2024 9:17 AM CDT CK Routine 12/23/2024 8:07 AM CDT CBC WITHOUT DIFFERENTIAL Stat 12/23/2024 8:07 AM CDT RENAL FUNCTION PANEL Routine 12/23/2024 8:07 AM CDT POC GLUCOSE Routine 12/23/2024 7:25 AM CDT CBC WITH DIFFERENTIAL Routine 12/23/2024 1:58 AM CDT BASIC METABOLIC PANEL Routine 12/23/2024 1:58 AM CDT POC GLUCOSE Routine 12/22/2024 11:09 PM CDT POC GLUCOSE Routine 12/22/2024 8:51 PM CDT XR CHEST PA OR AP 1 VW Routine 12/22/2024 7:15 PM CDT TROPONIN 6 HR, 5TH GEN Timed Study 12/22/2024 6:32 PM CDT AMMONIA LEVEL Stat 12/22/2024 6:32 PM CDT BLOOD CULTURE Stat 12/22/2024 6:31 PM CDT BLOOD CULTURE Stat 12/22/2024 6:31 PM CDT BLOOD CULTURE Stat 12/22/2024 6:31 PM CDT BLOOD CULTURE Stat 12/22/2024 6:31 PM CDT LEGIONELLA SPECIES BY PCR, NON BLOOD Routine 12/22/2024 5:50 PM CDT CELL COUNT WITH DIFFERENTIAL, BODY FLUID Routine 12/22/2024 5:50 PM CDT RESPIRATORY CULTURE WITH GRAM STAIN Routine 12/22/2024 5:50 PM CDT PNEUMONIA PATHOGEN PCR PANEL Routine 12/22/2024 5:50 PM CDT RESPIRATORY PATHOGEN PCR PANEL Routine 12/22/2024 5:44 PM CDT SPUTUM CULTURE WITH GRAM STAIN Stat 12/22/2024 5:[address] HEAD WO CONTRAST Stat 12/22/2024 4 :55 PM CDT PROLACTIN Routine 12/22/2024 3:45 PM CDT PROCALCITONIN Routine 12/22/2024 3:45 PM CDT C-REACTIVE PROTEIN Routine 12/22/2024 3: 45 PM CDT TROPONIN 2 HR, 5TH GEN Timed Study 12/22/2024 3:45 PM CDT EXTRA TUBE (URINE CONTAINER) Routine 12/22/2024 3:40 PM CDT EXTRA TUBE Routine 12/22/2024 3:40 PM CDT EXTRA TUBE (URINE GODFREY) Stat 12/22/2024 3:40 PM CDT DRUG SCREEN, URINE Stat 12/22/2024 3: 40 PM CDT URINALYSIS W/REFLEX MICROSCOPIC Stat 12/22/2024 3:40 PM CDT XR CHEST PA OR AP 1 VW Stat 12/22/2024 12:57 PM CDT XR CHEST PA OR AP 1 VW Stat 12/22/2024 12:50 PM CDT POC LACTIC ACID Stat 12/22/2024 12:47 PM CDT BLOOD GAS,(INCL. H+H, LYTES, GLUC) Stat 12/22/2024 12:47 PM CDT CK Stat 12/22/2024 12:40 PM CDT TROPONIN BASELINE, 5TH GEN Stat 12/22/2024 12:40 PM CDT SALICYLATE LEVEL Stat 12/22/2024 12:4 0 PM CDT ACETAMINOPHEN LEVEL Stat 12/22/2024 1 2:40 PM CDT MAGNESIUM LEVEL Stat 12/22/2024 12:40 PM CDT LACTIC ACID Stat 12/22/2024 12:40 PM CDT ETHANOL LEVEL Stat 12/22/2024 12:40 PM CDT COMPREHENSIVE METABOLIC PANEL Stat 12/22/2024 12:40 PM CDT PTT Stat 12/22/2024 12:40 PM CDT PROTIME-INR Stat 12/22/2024 12:40 PM CDT CBC WITH DIFFERENTIAL Stat 12/22/2024 12:40 PM CDT EKG 12-LEAD Stat 12/22/2024 12:35 PM CDT CRITICAL CARE Routine 12/22/2024 12:07 PM CDT HEMOGLOBIN A1C Stat 08/21/2024 8:46 PM CDT from Last 3 Months or Most Recently Relevant to Health Maintenance Results * (ABNORMAL) CBC WITH DIFFERENTIAL (01/04/2025 6:31 PM CDT) Only the most recent of5 resultswithin the time period is included. [facility] WBC 8.0 4.0 - 9.8 K/uL 01/04/2025 6:37 PM CDT [facility] RBC 3.83(L) 3.90 - 4.90 M/uL 01/04/2025 6:37 PM CDT [facility] HEMOGLOBIN 11.5(L) 11.8 - 14.8 g/dL 01/04/2025 6:37 PM CDT [facility] HEMATOCRIT 32.8(L) 35.5 - 44.0 % 01/04/2025 6:37 PM CDT [facility] MCV 85.6 82.0 - 99.0 fL 01/04/2025 6:37 PM CDT [facility] MCH 30.0 27.2 - 32.6 pg 01/04/2025 6:37 PM CDT [facility] MCHC 35.1 31.5 - 35.5 g/dL 01/04/2025 6:37 PM CDT [facility] RDW 13.7 11.5 - 14.5 % 01/04/2025 6:37 PM CDT [facility] RDW-STDEV 41.9 37.1 - 48.7 fL 01/04/2025 6:37 PM CDT [facility] PLATELETS 285 140 - 350 K/uL 01/04/2025 6:37 PM CDT [facility] MPV 9.9 9.3 - 12.4 fL 01/04/2025 6:37 PM CDT [facility] NEUTROPHILS 57 % 01/04/2025 6:37 PM CDT [facility] LYMPHOCYTES 32 % 01/04/2025 6:37 PM CDT [facility] MONOCYTES 8 % 01/04/2025 6:37 PM CDT [facility] EOSINOPHILS 2 % 01/04/2025 6:37 PM CDT [facility] BASOPHILS 1 % 01/04/2025 6:37 PM CDT [facility] IMMATURE GRANULOCYTES 0 % 01/04/2025 6:37 PM CDT [facility] NEUTROPHIL ABSOLUTE 4.54 1.90 - 7.00 K/uL 01/04/2025 6:37 PM CDT [facility] LYMPHOCYTE ABSOLUTE 2.59 0.70 - 4.50 K/uL 01/04/2025 6:37 PM CDT [facility] MONOCYTE ABSOLUTE 0.60 0.10 - 1.30 K/uL 01/04/2025 6:37 PM CDT [facility] EOSINOPHIL ABSOLUTE 0.17 0.00 - 0.70 K/uL 01/04/2025 6:37 PM CDT [facility] BASOPHILS ABSOLUTE 0.07 0.00 - 0.20 K/uL 01/04/2025 6:37 PM CDT [facility] IMMATURE GRANULOCYTES ABSOLUTE 0.03 0.00 - 0.03 K/uL 01/04/2025 6:37 PM CDT [facility] Blood Venipuncture / Unknown 01/04/2025 6:31 PM CDT 01/04/2025 6:33 PM CDT Ray Conti MD HEMATOLOGY ORDERABLES F inal Result Performing Organization Address [facility]/ZIP Co de Phone Number [facility] [id number] [place] [address] * ETHANOL LEVEL (01/04/2025 6:31 PM CDT) Only the most recent of3 resultswithin the time period is included. ETHANOL <10.10 No Ref Range Estab mg/dL 01/04/2025 7:02 PM CDT [facility] ETHANOL % <0.01 %w/v 01/04/2025 7:02 PM CDT [facility] Blood Venipuncture / Unknown 01/04/2025 6:31 PM CDT 01/04/2025 6:33 PM CDT Ray Conti MD CHEMISTRY ORDERABLES Fi nal Result Performing Organization Address [facility]/ZIP Co de Phone Number [facility] [id number] [place] [address] * (ABNORMAL) COMPREHENSIVE METABOLIC PANEL (01/04/2025 6:31 PM CDT) Only the most recent of4 resultswithin the time period is included. SODIUM 138 136 - 145 mmol/L 01/04/2025 7:02 PM CDT [facility] POTASSIUM 2.8(L) 3.4 - 5.1 mmol/L 01/04/2025 7:02 PM CDT [facility] CHLORIDE 106 98 - 107 mmol/L 01/04/2025 7:02 PM CDT [facility] CO2 18(L) 22 - 29 mmol/L 01/04/2025 7:02 PM CDT [facility] CALCIUM 8.7 8.6 - 10.4 mg/dL 01/04/2025 7:02 PM [facility] BUN 8 6 - 20 mg/dL 01/04/2025 7:02 PM [facility] CREATININE 0.76 0.51 - 0.95 mg/dL 01/04/2025 7:02 PM [facility] GLUCOSE 116(H) 74 - 99 mg/dL 01/04/2025 7:02 PM [facility] TOTAL PROTEIN 6.5 6.3 - 8.7 g/dL 01/04/2025 7:02 PM [facility] ALBUMIN 4.0 3.5 - 5.2 g/dL 01/04/2025 7:02 PM [facility] BILIRUBIN TOTAL 0.6 0.0 - 1.2 mg/dL 01/04/2025 7:02 PM [facility] ALKALINE PHOSPHATASE 72 40 - 150 U/L 01/04/2025 7:02 PM [facility] AST 33 0 - 33 U/L 01/04/2025 7:02 PM [facility] ALT 49(H) 0 - 33 U/L 01/04/2025 7:02 PM [facility] GFR >60 >=60 mL/min/1.7 3 sq meter 01/04/2025 7:02 PM [facility] Comment:eGFR calculated with 2020 CKD-EPI equation. Vegetarian diet, extremely high or low muscle mass, and may affect results. Cystatin C with Glomerular Filtration Rate is a suitable alternative for these patients. ANION GAP 14 8 - 16 mmol/L 01/04/2025 7:02 PM [facility] Blood Venipuncture / Unknown 01/04/2025 6:31 PM CDT 01/04/2025 6:33 PM CDT us Ray Conti MD CHEMISTRY ORDERABLES Fi nal Result [facility] CLIA# [id number] [address] [place] [address] * TROPONIN 2 HR, 5TH GEN (01/03/2025 5:15 PM CDT) Only the most recent of2 resultswithin the time period is included. TROPONIN T, 2 HR 5TH GEN 9 <=10 ng/L 01/03/2025 5:41 PM CDT [facility] DELTA 2HR TROPONIN T 0 See Interp. 01/03/2025 5:41 PM CDT [facility] Blood Collection / Unknown 01/03/2025 5:15 PM CDT 01/03/2025 5:28 PM CDT Narrative [facility] - 01/03/2025 5:41 PM CDT Troponin Detectable but normal range. Delta not changing. us Jose Aj MD CHEMISTRY ORDERABLES Final Res ult Performing Organization Address City/[facility] Co de Phone Number [facility] CLIA # [id number] [address] [address] * MAGNESIUM LEVEL (01/03/2025 5:15 PM CDT) Only the most recent of2 resultswithin the time period is included. Pathologist [facility] [place] MAGNESIUM 2.3 1.6 - 2.6 mg/dL 01/03/2025 5:50 PM CDT [facility] Blood Collection / Unknown 01/03/2025 5:15 PM CDT 01/03/2025 5:28 PM CDT us Jose Aj MD CHEMISTRY ORDERABLES Final Res ult [facility] CLIA # [id number] [facility] [address] [place] [address] * XR CHEST PA OR AP 1 VW (01/03/2025 4:53 PM CDT) Only the most recent of5 resultswithin the time period is included. Anatomical Region Laterality Modality Chest Computed Radiogr aphy 01/03/2025 4:53 PM CDT Impressions 01/03/2025 4:58 PM CDT IMPRESSION: Lungs are clear. No pneumothorax or pleural effusion. The cardiomediastinal silhouette is unchanged. DICTATION LOCATION: Location [address] [place] [address] Narrative 01/03/2025 4:58 PM CDT CHEST, 1 VIEW DATE: 01/03/2025 4:53 PM HISTORY: Altered Mental Status. See Reason for Exam COMPARISON: 12/25/2024 Procedure Note Richardson Silva MD - 01/03/2025 CHEST, 1 VIEW DATE: 01/03/2025 4:53 PM HISTORY: Altered Mental Status. See Reason for Exam COMPARISON: 12/25/2024 IMPRESSION: Lungs are clear. No pneumothorax or pleural effusion. The cardiomediastinal silhouette is unchanged. DICTATION LOCATION: Location [address] [place] [address] us Jose Aj MD DIAGNOSTIC IMAGING ORDERABLES Final Result * CT HEAD WO CONTRAST (01/03/2025 4:12 PM CDT) Only the most recent of2 resultswithin the time period is included. Anatomical Region Laterality Modality Head Computed Tomogra phy 01/03/2025 4:12 PM CDT Impressions 01/03/2025 4:16 PM CDT Impression: No acute intracranial process. DICTATION LOCATION: Location 4 Narrative 01/03/2025 4:[address] HEAD WO CONTRAST Date: 01/03/2025 4:12 PM Clinical Indication: Mental status change, unknown cause Comparison: December 22, 2024 CT. Technique: CT images were obtained of the head without contrast. These were viewed on brain and bone windows. One or more of the following dose reduction techniques were utilized: Automated exposure control (AEC), Adjustment of mA and/or kV according to patient size, CT scan done according to ALARA and image gently/image wisely. Findings: The brain parenchyma is normal in attenuation. No intra- or extra-axial mass or fluid collection. No acute hemorrhage. The ventricles are normal in size, shape, and morphology. The godfrey-white matter junction is normal. The subarachnoid cisterns are patent. The visualized paranasal sinuses are normal. The visualized portions of the orbits and globes are normal. The mastoid air cells are clear. No aggressive osseous lesion or fracture. Procedure Note Ladarius Yuan MD - 01/03/2025 CT HEAD WO CONTRAST Date: 01/03/2025 4:12 PM Clinical Indication: Mental status change, unknown cause Comparison: December 22, 2024 CT. Technique: CT images were obtained of the head without contrast. These were viewed on brain and bone windows. One or more of the following dose reduction techniques were utilized: Automated exposure control (AEC), Adjustment of mA and/or kV according to patient size, CT scan done according to ALARA and image gently/image wisely. Findings: The brain parenchyma is normal in attenuation. No intra- or extra-axial mass or fluid collection. No acute hemorrhage. The ventricles are normal in size, shape, and morphology. The godfrey-white matter junction is normal. The subarachnoid cisterns are patent. The visualized paranasal sinuses are normal. The visualized portions of the orbits and globes are normal. The mastoid air cells are clear. No aggressive osseous lesion or fracture. Impression: No acute intracranial process. DICTATION LOCATION: Location [address] Aj MD [address] ORDERABLES Final Result * EKG 12-LEAD (01/03/2025 2:48 PM CDT) Only the most recent of2 resultswithin the time period is included. 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1985 Requested By: Order Number: [id number] Maximo MD: Manoj Lara Measurements Intervals [place] Rate: 90 P: 54 CT: 144 QRS: 41 QRSD: 89 T: 29 QT: 378 QTc: 464 Interpretive Statements SINUS RHYTHM POSSIBLE LEFT ATRIAL ENLARGEMENT [-0.1mV P-WAVE IN V1/V2] MODERATE ST DEPRESSION [0.05+ mV ST DEPRESSION] Electronically Signed On 01-03-2025 16:29:17 CDT by Manoj Lara Procedure Note Manoj Lara MD - 01/03/2025 [facility] ED [address], [place] [address] Test Date: 2025-01-03 Pat Name: TONG TERRAZAS Department: 5001 Room: ED14 ED14 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: Female 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1985 Requested By: Order Number: [id number] Reading MD: Manoj Lara Measurements Intervals [place] Rate: 90 P: 54 CT: 144 QRS: 41 QRSD: 89 T: 29 QT: 378 QTc: 464 Interpretive Statements SINUS RHYTHM POSSIBLE LEFT ATRIAL ENLARGEMENT [-0.1mV P-WAVE IN V1/V2] MODERATE ST DEPRESSION [0.05+ mV ST DEPRESSION] Electronically Signed On 01-03-2025 16:29:17 CDT by Manoj Lara us Jose Aj MD ECG ORDERABLES Final Result INTERFACE SYSTEM Refer to clinic/hospital department * EXTRA TUBE (BLUE) (01/03/2025 2:34 PM CDT) Blood Collection / Unknown 01/03/2025 2:34 PM CDT 01/03/2025 3:56 PM CDT us Protocol Oriana Shankar MD HEMATOLOGY ORDERABLES Final Result [facility] # [id number] [address] [place] [address] * TROPONIN BASELINE, 5TH GEN (01/03/2025 2:34 PM CDT) Only the most recent of2 resultswithin the time period is included. TROPONIN T, BASELINE 5TH GEN 9 <=10 ng/L 01/03/2025 3:36 PM CDT [facility] Blood Collection / Unknown 01/03/2025 2:34 PM CDT 01/03/2025 2:49 PM CDT Narrative [facility] - 01/03/2025 3:36 PM CDT Troponin Detectable but normal range. us Jose Aj MD CHEMISTRY ORDERABLES Final Res ult Performing Organization Address [facility]/ZIP Co de Phone Number [facility] CLIA # [id number] [address] [place] [address] * EXTRA TUBE (GODFREY) (01/03/2025 2:34 PM CDT) Blood Venipuncture / Unknown 01/03/2025 2:34 PM CDT 01/03/2025 2:55 PM CDT us Protocol Oriana Shankar MD CHEMISTRY ORDERABLES Final Result Performing Organization Address [facility] Co de Phone Number [facility] CLIA # [id number] [facility] [address] [place] [address] * ACETAMINOPHEN LEVEL (01/03/2025 2:34 PM CDT) Only the most recent of2 resultswithin the time period is included. ACETAMINOPHEN LEVEL <5 0 - 30 ug/mL 01/03/2025 3:37 PM CDT [facility] Blood Collection / Unknown 01/03/2025 2:34 PM CDT 01/03/2025 2:49 PM CDT Lauryn [facility] - 01/03/2025 3:37 PM CDT Therapeutic Range: 10-30 ug/mL The following Acetaminophen levels are associated with possible toxicity: 4 hours after dose >200 ug/mL 8 hours after dose >100 ug/mL 12 hours after dose >50 ug/mL us Jose Aj MD CHEMISTRY ORDERABLES Final Res ult Performing Organization Address [facility]/ZIP Co de Phone Number [facility] CLIA # [id number] [address] [place] [address] * SALICYLATE LEVEL (01/03/2025 2:34 PM CDT) Only the most recent of2 resultswithin the time period is included. SALICYLATE LEVEL <0.3 0.0 - 10.0 mg/dL 01/03/2025 3:37 PM CDT [facility] [employer] [facility] Blood Collection / Unknown 01/03/2025 2:34 PM CDT 01/03/2025 2:49 PM CDT Narrative [facility] - 01/03/2025 3:37 PM CDT Negative <3.0 mg/dL Therapeutic 3.0 - 10 mg/dL Toxicity >30 mg/dl Lethal >60 mg/dL Jose Aj MD CHEMISTRY ORDERABLES Final Res ult Performing Organization Address [facility]/ZIP Co de Phone Number [facility] CLIA # [id number] [address] [place] [address] * TELEMETRY REPORT (12/29/2024 11:59 AM CDT) Provider Scanning ECG ORDERABLES Final Result * (ABNORMAL) VAGINOSIS/VAGINITIS PANEL PLUS (12/26/2024 3:07 PM CDT) Pathologist [facility] [place] BACTERIAL VAGINOSIS POSITIVE(A) NEGATIVE [facility] [place] CHAYO SPECIES DETECTED(A) NOT DETECTED [facility] [place] CHAYO GLABRATA DETECTED(A) NOT DETECTED [facility] [place] Comment: C. glabrata, which is responsible for the majority of non-albicans CV in the [place] may have decreased susceptibility to standard antimycotic therapeutic intervention compared to C. albicans. Chayo species C. albicans, C. tropicalis, C. parapsilosis, and/or C. dubliniensis can be detected, but not differentiated, in the Chayo spp. result. TRICHOMONAS VAGINALIS (TV), TMA DETECTED(A) NOT DETECTED [facility] [place] CHLAMYDIA TRACHOMATIS RNA, TMA, UROGENITAL NOT DETECTED NOT DETECTED [facility] [place] NEISSERIA GONORRHOEAE RNA, TMA, UROGENITAL NOT DETECTED NOT DETECTED [facility] [place] Comment: For additional information, please refer to https://education.NewsCrafted/faq/TGJ951 (This link is being provided for information/ educational purposes only.) Test Performed at: [facility] [address] [place] [address] Wallace Dunham MD Genital SPECIMEN FROM VAGINA / Unknown 12/26/2024 3:07 PM CDT 12/27/2024 2:46 AM CDT us Yelena SCRUGGS MICROBIOLOGY - GENERAL ORDE RABLES Final Result Performing Organization Address [facility]/ZIP Co de Phone Number [facility] [phone] [facility] [address] [facility] [address] * SYPHILIS SEROLOGY W/REFLEX (12/26/2024 1:49 PM CDT) Pathologist [facility] [place] T PALLIDUM ANTIBODIES NEGATIVE NEGATIVE [facility] Comment: No antibodies to T. pallidum (the agent causing syphilis) were detected in the specimen. This result, however, does not exclude very recent T. pallidum infection; testing of a second specimen, collected 2-4 weeks after this specimen, is recommended if the index of suspicion for recent infection is high. Test Performed at: [facility] [address] [place] [address] Royce Crockett Blood 12/26/2024 1:49 PM CDT 12/27/2024 2:55 AM CDT us Yelena SCRUGGS CHEMISTRY ORDERABLES Final Result [facility] [phone] [employer] [address] [place] [address] * HIV DETECTION W/REFLX CONFIRMATION (12/26/2024 1:49 PM CDT) [facility] RESULT [facility] Comment: [facility] component Name and Code: HIV FINAL INTERPRETATION [[id number]] HIV Negative HIV-1 antigen and HIV-1/HIV-2 antibodies were not detected. There is no laboratory evidence of HIV infection. HIV-1/2 AG AND AB SCREEN NON-REACT MICHELLE NON-REACT MICHELLE [facility] quinn Comment: Test Performed at: [facility] [address] [place] [address] [place] [address] Wallace Dunham MD Blood 12/26/2024 1:49 PM CDT 12/27/2024 2:55 AM CDT Yelena Ca [facility] CHEMISTRY ORDERABLES Final Result [facility] [phone] [place] [address] * (ABNORMAL) HSV TYPE 1 AND 2 IGG ANTIBODY (12/26/2024 1:49 PM CDT) [facility] HSV1 IGG >58.00(H) index [facility] [place] HSV2 IGG <0.90 index [facility] [place] Comment: Index Interpretation ----- <0.90 Negative 0.90-1.09 Equivocal >1.09 Positive This assay utilizes recombinant type-specific antigens to differentiate HSV-1 from HSV-2 infections. A positive result cannot distinguish between recent and past infection. If recent HSV infection is suspected but the results are negative or equivocal, the assay should be repeated in 4-6 weeks. The performance characteristics of the assay have not been established for pediatric populations, immunocompromised patients, or screening. For additional information, please refer to http://education.Citra Style/faq/VGG926 (This link is being provided for informational/ educational purposes only.) Test Performed at: [facility] [address] [place] [address] Wallace Dunham MD Blood 12/26/2024 1:49 PM CDT 12/27/2024 2:55 AM CDT Yelena Ca DIRECTOR TELEHEALTH CHEMISTRY ORDERABLES Final Result Performing Organization Address City/[facility]/ZIP Co de Phone Number [facility] [phone] [facility] [place] [address] [place] [address] * BLOOD CULTURE (12/25/2024 2:46 AM CDT) Only the most recent of4 resultswithin the time period is included. BLOOD CULTURE No growth 12/30/2024 5:23 PM CDT [facility] Blood (Peripheral) Venipuncture / Unknown 12/25/2024 2:46 AM CDT 12/25/2024 2:53 AM CDT us Ge Guerra MD MICROBIOLOGY - GENERAL O RDERABLES Final Result Performing Organization Address [facility] Co de Phone Number [facility] CLIA # [id number] [address] [facility] [place] [address] * LACTIC ACID (12/25/2024 2:36 AM CDT) Only the most recent of2 resultswithin the time period is included. LACTIC ACID 1.0 <=2.0 mmol/L 12/25/2024 3:09 AM CDT [facility] Blood BLOOD SPECIMEN / Unknown Venipuncture / Unknown 12/25/2024 2:36 AM CDT 12/25/2024 2:53 AM CDT Ge Guerra MD CHEMISTRY ORDERABLES Fin al Result Performing Organization Address City/[facility]/ZIP Co de Phone Number [facility] CLIA # [id number] [address] [place] [address] * XR ABDOMEN FOR FEEDING TUBE 1 VW (12/23/2024 3:20 PM CDT) Anatomical Region Laterality Modality Abdomen Computed Radiogr aphy 12/23/2024 3:21 PM CDT Narrative 12/23/2024 3:25 PM CDT Abdomen AP History: Feeding tube placement aftercare FINDINGS: An enteric tube ends in the mid stomach. DICTATION LOCATION: Location [address] [place] [address] us Maritza Prescott MD DIAGNOSTIC IMAGING ORDERABL ES Edited Result - Final * (ABNORMAL) POC LACTIC ACID (12/23/2024 2:41 PM CDT) Only the most recent of2 resultswithin the time period is included. LACTIC ACID POC 2.4(H) <=2.0 mmol/L 12/23/2024 2:41 PM CDT [facility] SPECIMEN SOURCE, GASES POC Venous 12/23/2024 2:41 PM CDT [facility] Blood 12/23/2024 2:41 PM CDT 12/23/2024 2:43 PM CDT us Maritza Prescott MD POINT OF CARE TESTING Final Result [facility] [id number] [place] [address] * (ABNORMAL) BLOOD GAS,(INCL. H+H, LYTES, GLUC) (12/23/2024 2:41 PM CDT) Only the most recent of2 resultswithin the time period is included. PH BLOOD POC 7.25(L) 7.32 - 7.43 12/23/2024 2:41 PM CDT [facility] PCO2 POC 47 38 - 50 mm Hg 12/23/2024 2:41 PM CDT [facility] PO2 POC 31 28 - 40 mm Hg 12/23/2024 2:41 PM T [facility] HCO3 (CALC) POC 21(L) 22 - 29 mmol/L 12/23/2024 2:41 PM [facility] O2 SATURATION POC 59 40 - 70 % 12/23/2024 2:41 PM [facility] BASE EXCESS POC -6 No Reference Range Established mmol/L 12/23/2024 2:41 PM [facility] HEMOGLOBIN POC 8.3(L) 11.8 - 14.8 g/dL 12/23/2024 2:41 PM [facility] HEMATOCRIT POC 25(L) 35 - 44 % 12/23/2024 2:41 PM [facility] Comment:Estimated Value GLUCOSE POC 334(H) 74 - 99 mg/dL 12/23/2024 2:41 PM [facility] SODIUM POC 139 135 - 145 mmol/L 12/23/2024 2:41 PM [facility] POTASSIUM POC 3.7 3.5 - 4.9 mmol/L 12/23/2024 2:41 PM [facility] CHLORIDE POC 115(H) 98 - 107 mmol/L 025 2:41 PM [facility] CALCIUM IONIZED POC 4.2(L) 4.8 - 5.2 mg/dL 12/23/2024 2:41 PM [facility] PH TEMP CORRECT 7.25(L) 7.32 - 7.43 12/23/2024 2:41 PM [facility] PCO2 TEMP CORRECT 47 38 - 50 mm Hg 12/23/2024 2:41 PM [facility] PO2 TEMP CORRECT 31 25 - 40 mm Hg 12/23/2024 2:41 PM [facility] SPECIMEN SOURCE, GASES POC Venous 12/23/2024 2:41 PM [facility] FIO2 40.0 21.0 - 100.0 % 12/23/2024 2:41 PM CDT [facility] - [facility] PEEP POC 5 12/23/2024 2:41 PM CDT [facility] - [facility] PS POC 8 12/23/2024 2:41 PM CDT [facility] - [facility] Blood, venous 12/23/2024 2:4 1 PM CDT 12/23/2024 2:43 PM CDT Maritza Prescott MD ABG ORDERABLES Final Resul t Performing Organization Address City/[facility]/ZIP Co de Phone Number [facility] CLIA# [id number] [place] [address] * (ABNORMAL) POC GLUCOSE (12/23/2024 11:39 AM CDT) Only the most recent of4 resultswithin the time period is included. [facility] Signature GLUCOSE POC 161(H) 74 - 99 mg/dL 12/23/2024 11:39 AM CDT [facility] POINT OF CARE SPECIMEN SOURCE, GLUCOSE POC Whole Blood 12/23/2024 11:39 AM CDT [facility] POINT OF CARE Blood, whole 12/23/2024 11:3 9 AM CDT 12/23/2024 11:50 AM CDT us Maritza Prescott MD POINT OF CARE TESTING Final Result Performing Organization Address City/[facility]/ZIP Co de Phone Number [facility] POINT OF CARE CLIA # [id number] [address] [place] [address] * RAPID EEG (12/23/2024 9:39 AM CDT) Narrative Juan Gomez MD - 12/23/2024 9:39 AM CDT Juan Gomez MD 12/23/2024 9:[address] [address] Name; Tong Terrazas CSN; [id number] MRN; [id number] ; 1985 Procedure; 12/22/2024 Rapid Electroencephalography History; The patient is a 39 y.o. year-old with history of having polysubstance abuse. Rapid EEG was performed to rule out any nonconvulsive seizure activity. Rapid EEG performed for 1 hour 1 minute. EEG was done from 5:11 PM to 6:12 PM on December 22, 2024. It was ordered by Dr. Tatum. Study type; The rapid EEG was obtained using a 10-lead, 8 channel system positioned circumferentially without any parasagittal coverage (Rapid EEG-Clarity). EEG is reviewed as well as background features and all clinically significant events. The [employer] system used the clarity algorithm to analyze brain activity and detect seizures/status epilepticus to support reading of the EEG. Reason for EEG; Patient with history of mental status changes and history of seizures on Lamictal. INTERPRETATION: The background activity consists of admixed the low to medium amplitude delta to theta range slowing is seen. Intermittent 9 to 10 Hz alpha range activity of low to medium amplitude is also present. Intermittent electrode artifact and low to medium amplitude beta range activity seen which is secondary to muscle artifact and electrode artifact. There is no evidence of any asymmetry or epileptiform discharges seen. Seizure burden is zero. IMPRESSION: This is a normal awake and sleep electroencephalogram. Juan Schultz M.D Board certified Neurology, Neurophysiology and Sleep medicine [facility] ORDERABLES Final Resul t * (ABNORMAL) BLOOD GAS VENOUS (12/23/2024 9:17 AM CDT) PH BLOOD POC 7.26(L) 7.32 - 7.43 12/23/2024 9:17 AM T [facility] PCO2 POC 55(H) 38 - 50 mm Hg 12/23/2024 9:17 AM CDT [facility] - [facility] PO2 POC 34 28 - 40 mm Hg 12/23/2024 9:17 AM T [facility] - [facility] HCO3 (CALC) POC 25 22 - 29 mmol/L 12/23/2024 9:17 AM T [facility] - [facility] BASE EXCESS POC -3 No Reference Range Established mmol/L 12/23/2024 9:17 AM CDT [facility] O2 SATURATION POC 62 40 - 70 % 12/23/2024 9:17 AM CDT [facility] PH TEMP CORRECT 7.26(L) 7.32 - 7.43 12/23/2024 9:17 AM CDT [facility] PCO2 TEMP CORRECT 55(H) 38 - 50 mm Hg 12/23/2024 9:17 AM CDT [facility] PO2 TEMP CORRECT 34 25 - 40 mm Hg 12/23/2024 9:17 AM CDT [facility] SPECIMEN SOURCE, GASES POC Venous 12/23/2024 9:17 AM CDT [facility] FIO2 28.0 21.0 - 100.0 % 12/23/2024 9:17 AM CDT [facility] PEEP POC 5 12/23/2024 9:17 AM CDT [facility] PS POC 8 12/23/2024 9:17 AM CDT [facility] VENT MODE POC CPAP 12/23/2024 9:17 AM CDT [facility] Blood, venous 12/23/2024 9:1 7 AM CDT 12/23/2024 9:18 AM CDT us Maritza Prescott MD ABG ORDERABLES Final Resul t [facility] CLIA# [id number] [place] [address] * (ABNORMAL) CBC WITHOUT DIFFERENTIAL (12/23/2024 8:07 AM CDT) WBC 7.5 4.0 - 9.8 K/uL 12/23/2024 8:39 AM CDT [facility] RBC 3.27(L) 3.90 - 4.90 M/uL 12/23/2024 8:39 AM CDT [facility] HEMOGLOBIN 9.6(L) 11.8 - 14.8 g/dL 12/23/2024 8:39 AM CDT [facility] HEMATOCRIT 28.7(L) 35.5 - 44.0 % 12/23/2024 8:39 AM CDT [facility] MCV 87.8 82.0 - 99.0 fL 12/23/2024 8:39 AM CDT [facility] MCH 29.4 27.2 - 32.6 pg 12/23/2024 8:39 AM CDT [facility] MCHC 33.4 31.5 - 35.5 g/dL 12/23/2024 8:39 AM CDT [facility] PLATELETS 240 140 - 350 K/uL 12/23/2024 8:39 AM CDT [facility] MPV 10.1 9.3 - 12.4 fL 12/23/2024 8:39 AM CDT [facility] RDW 12.9 11.5 - 14.5 % 12/23/2024 8:39 AM CDT [facility] RDW-STDEV 40.7 37.1 - 48.7 fL 12/23/2024 8:39 AM T [facility] Blood Venipuncture / Unknown 12/23/2024 8:07 AM CDT 12/23/2024 8:36 AM CDT us Maritza Prescott MD HEMATOLOGY ORDERABLES Final Result [facility] CLIA# [id number] [place] [address] * (ABNORMAL) CK (12/23/2024 8:07 AM CDT) Only the most recent of2 resultswithin the time period is included. CK 340(H) 20 - 180 U/L 12/23/2024 9:05 AM CDT [facility] Blood Venipuncture / Unknown 12/23/2024 8:07 AM CDT 12/23/2024 8:34 AM CDT us Maritza Prescott MD CHEMISTRY ORDERABLES Final Result [facility] CLIA# [id number] [place] [address] * (ABNORMAL) RENAL FUNCTION PANEL (12/23/2024 8:07 AM CDT) SODIUM 143 136 - 145 mmol/L 12/23/2024 9:05 AM T [facility] POTASSIUM 3.3(L) 3.4 - 5.1 mmol/L 12/23/2024 9:05 AM T [facility] CHLORIDE 111(H) 98 - 107 mmol/L 12/23/2024 9:05 AM [facility] CO2 21(L) 22 - 29 mmol/L 12/23/2024 9:05 AM [facility] CALCIUM 8.3(L) 8.6 - 10.4 mg/dL 12/23/2024 9:05 AM [facility] BUN 7 6 - 20 mg/dL 12/23/2024 9:05 AM [facility] CREATININE 0.71 0.51 - 0.95 mg/dL 12/23/2024 9:05 AM [facility] GLUCOSE 181(H) 74 - 99 mg/dL 12/23/2024 9:05 AM [facility] ALBUMIN 3.6 3.5 - 5.2 g/dL 12/23/2024 9:05 AM [facility] PHOSPHORUS 2.3(L) 2.5 - 4.5 mg/dL 12/23/2024 9:05 AM [facility] GFR >60 >=60 mL/min/1.7 3 sq meter 12/23/2024 9:05 AM [facility] Comment:eGFR calculated with 2020 CKD-EPI equation. Vegetarian diet, extremely high or low muscle mass, and may affect results. Cystatin C with Glomerular Filtration Rate is a suitable alternative for these patients. ANION GAP 11 8 - 16 mmol/L 12/23/2024 9:05 AM T [facility] Blood Venipuncture / Unknown 12/23/2024 8:07 AM CDT 12/23/2024 8:34 AM CDT Maritza Prescott MD CHEMISTRY ORDERABLES Final Result [facility] CLIA# [id number] [place] [address] * (ABNORMAL) BASIC METABOLIC PANEL (12/23/2024 1:58 AM CDT) SODIUM 141 136 - 145 mmol/L 12/23/2024 2:37 AM T [facility] POTASSIUM 2.8(L) 3.4 - 5.1 mmol/L 12/23/2024 2:37 AM [facility] CHLORIDE 108(H) 98 - 107 mmol/L 12/23/2024 2:37 AM [facility] CO2 22 22 - 29 mmol/L 12/23/2024 2:37 AM [facility] CALCIUM 8.2(L) 8.6 - 10.4 mg/dL 12/23/2024 2:37 AM [facility] BUN 9 6 - 20 mg/dL 12/23/2024 2:37 AM T [facility] CREATININE 0.74 0.51 - 0.95 mg/dL 12/23/2024 2:37 AM [facility] GLUCOSE 127(H) 74 - 99 mg/dL 12/23/2024 2:37 AM [facility] GFR >60 >=60 mL/min/1.7 3 sq meter 12/23/2024 2:37 AM T [facility] Comment:eGFR calculated with 2020 CKD-EPI equation. Vegetarian diet, extremely high or low muscle mass, and may affect results. Cystatin C with Glomerular Filtration Rate is a suitable alternative for these patients. ANION GAP 11 8 - 16 mmol/L 12/23/2024 2:37 AM CDT [facility] Blood Venipuncture / Unknown 12/23/2024 1:58 AM CDT 12/23/2024 2:08 AM CDT Mario Alexandra MD CHEMISTRY ORDERABLES Final Resu lt [facility] [id number] [address] [place] [address] * (ABNORMAL) TROPONIN 6 HR, 5TH GEN (12/22/2024 6:32 PM CDT) TROPONIN T, 6 HR 5TH GEN 12(H) <11 ng/L 12/22/2024 7:12 PM CDT [facility] DELTA 6HR TROPONIN T 1 See Interp. 12/22/2024 7:12 PM CDT [facility] Blood Venipuncture / Unknown 12/22/2024 6:32 PM CDT 12/22/2024 6:43 PM CDT Narrative [facility] - 12/22/2024 7:12 PM CDT Troponin elevated. Delta indeterminate. Clive Dodge MD CHEMISTRY ORDERABLES Final Result [facility] [id number] [place] [address] * AMMONIA LEVEL (12/22/2024 6:32 PM CDT) AMMONIA 28.9 11.0 - 51.0 umol/L 12/22/2024 7:13 PM CDT [facility] Blood, venous Venipuncture / Unknown 12/22/2024 6:32 PM CDT 12/22/2024 6:43 PM CDT Jj ALFARO CHEMISTRY ORDERABLES Final Resul t [facility] [employer] [facility] CLIA# [id number] [place] [address] * (ABNORMAL) PNEUMONIA PATHOGEN PCR PANEL (12/22/2024 5:50 PM CDT) Staphylococcus aureus by PCR DETECTED( A) Not Detected 12/23/2024 4:03 AM CDT [facility] mecA/C and MREJ (methicillin-resis tance gene) by PCR DETECTED( A) Not Detected 12/23/2024 4:03 AM CDT [facility] Comment:Indicates presumptiv e methicillin (oxacillin) resistance. Subculture and susceptibility testing are required in order to assign a resistant or sensitive phenotype to each pathogenic isolate recovered from the sample. The mecA and MREJ genes may be from a nonpathogenic normal respiratory fercho or contamination of a Staphylococcus species and not from the Staphylococcus aureus detected. Washings SPECIMEN FROM LUNG / Unknown Collection / Unknown 12/22/2024 5:50 PM CDT 12/22/2024 5:56 PM CDT Narrative [facility] - 12/23/2024 4:03 AM CDT Results called to Armando Segal RN, [facility], on 12/23/2024 at 4:03 AM and read back verified. A negative result does not exclude the possibility of infection. A semi-quantitative (copies/mL) result is provided for bacteria. This panel does not distinguish between nucleic acid from live or bacteria or virus. Culture is needed for recovery of bacterial isolates and antimicrobial susceptibility testing. The Film Array Pneumonia Pathogen PCR Panel is a multiplexed nucleic acid detection test for 33 targets of bacteria, viruses, and resistance markers in respiratory specimens that cause pneumonia. Bacteria: Acinetobacter calcoaceticus-baumannii complex Enterobacter cloacae complex Escherichia coli Haemophilus influenzae Klebsiella aerogenes Klebsiella oxytoca Klebsiella pneumoniae group Moraxella catarrhalis Proteus spp. Pseudomonas aeruginosa Serratia marcescens Staphylococcus aureus Streptococcus agalactiae Streptococcus pneumoniae Streptococcus pyogenes Atypical Bacteria: Chlamydia pneumoniae Legionella pneumophila Mycoplasma pneumoniae Viruses: Adenovirus Coronavirus (229E, OC43, HKU1, NL63) Human Metapneumovirus Human Rhinovirus/Enterovirus Influenza A Influenza B Parainfluenza Virus Respiratory Syncytial Virus Antimicrobial Resistance Genes: CTX-M IMP KPC NDM OXA-48-like VIM mecA/C and MREJ Paolo Tatum MD MICROBIOLOGY - [facility] ORDERABLES Final Result [facility]# [id number] [address] [place] [address] * LEGIONELLA SPECIES BY PCR, NON BLOOD (12/22/2024 5:50 PM CDT) LEGIONELLA, SOURCE BAL 12/26/2024 10:28 PM CDT [facility] LEGIONELLA SPECIES, PCR NOT DETECTED 12/26/2024 10:28 PM CDT [facility] Comment: This test will detect most groups of clinically relevant Legionella species including but not limited to L. pneumophila, L. longbeachae, L. micdadei, L. dumoffii and L. bozemanii. It may not detect some opportunistic environmental species, such as L. jordanis and L. oakridgensis. LEGIONELLA PNEUMOPHILIA, PCR NOT DETECTED 12/26/2024 10:28 PM CDT [facility] Comment: REFERENCE RANGE: NOT DETECTED This test was developed and its analytical performance characteristics have been determined by [employer]. It has not been cleared or approved by FDA. This assay has been validated pursuant to the CLIA regulations and is used for clinical purposes. Washings SPECIMEN FROM LUNG / Unknown Collection / Unknown 12/22/2024 5:50 PM CDT 12/22/2024 5:56 PM CDT Narrative [facility] - 12/26/2024 10:28 PM CDT Performing Organization Information: Site ID: [id number] Name: [employer], Address: [address] [place] [id number] Director: Reanna De Dios MD,PhD,VIJAY Paolo Tatum MD BODY FLUIDS AND STOO LS Final Result Performing Organization Address [facility]/ZIP Co de Phone Number [facility] [phone] * (ABNORMAL) RESPIRATORY CULTURE WITH GRAM STAIN (12/22/2024 5:50 PM CDT) CULTURE STAPHYLOCOCCUS AUREUS(A) STANLEY MCG/ML 12/26/2024 8:06 AM CDT [facility] CULTURE 2+ or moderate Normal upper respiratory fercho STANLEY MCG/ML 12/26/2024 8:06 AM CDT [facility] GRAM STAIN Non diagnostic pattern 12/26/2024 8:06 AM CDT [facility] GRAM STAIN 4+ (Heavy) Polymorphonuclear WBC 12/26/2024 8:06 AM CDT [facility] Washings SPECIMEN FROM LUNG / Unknown Collection / Unknown 12/22/2024 5:50 PM CDT 12/22/2024 5:56 PM CDT Narrative Organism Antibiotic Method Susceptibility Staphylococcus aureus OXACILLIN (Nafcillin) STANLEY MCG/ML 0.5 mcg/mL: Susceptible Comment:Oxacillin (N afcillin) susceptible Staphylococcus species are predictably susceptible to cefazolin, ceftriaxone, cephalexin, and amoxicillin-clavulanate Staphylococcus aureus VANCOMYCIN STANLEY MCG/ML 1 mcg/mL: Susceptible Staphylococcus aureus CLINDAMYCIN STANLEY MCG/ML 0.25 mcg/mL: Susceptible Staphylococcus aureus DOXYCYCLINE STANLEY MCG/ML <=0.5 mcg/mL: Susceptible Staphylococcus aureus TRIMETHOPRIM/ SULFAMETHOXAZOLE STANLEY MCG/ML <=10 mcg/mL: Susceptible Staphylococcus aureus RIFAMPIN STANLEY MCG/ML <=0.5 mcg/mL: Susceptible Comment:Rifampin marbella uld NOT be used alone for antimicrobial therapy. Paolo Tatum MD MICROBIOLOGY - GENER AL ORDERABLES Final Result [facility] CLIA# [id number] [address] [place] [address] * CELL COUNT WITH DIFFERENTIAL, BODY FLUID (12/22/2024 5:50 PM CDT) Pathologist [facility] [place] APPEARANCE, BODY FLUID Cloudy 12/22/2024 7:02 PM CDT [facility] COLOR, FLD Colorless 12/22/2024 7:02 PM CDT [facility] NEUTROPHILS, FLD 87 No Ref Range Estab % 12/22/2024 7:02 PM CDT [facility] LYMPHOCYTE, FLD 8 No Ref Range Estab % 12/22/2024 7:02 PM CDT [facility] MONOCYTE/MACRO PHAGE, FLD 5 No Ref Range Estab % 12/22/2024 7:02 PM CDT [facility] Washings (Lung, bilateral) Collection / Unknown 12/22/2024 5:50 PM CDT 12/22/2024 5:56 PM CDT Paolo Tatum MD BODY FLUIDS AND STOO LS Final Result [facility] [employer] [facility] CLIA# [id number] [place] [address] * RESPIRATORY PATHOGEN PCR PANEL (12/22/2024 5:44 PM CDT) [facility] Respiratory Pathogen PCR Panel NOT DETECTED No respiratory pathogen nucleic acids detected. 12/22/2024 7:44 PM CDT [facility] COVID-19 PCR NOT DETECTED Not Detected 12/22/2024 7:44 PM CDT [facility] Upper Respiratory ENTIRE NASOPHARYNX / Unknown Collection / Unknown 12/22/2024 5:44 PM CDT 12/22/2024 6:43 PM CDT Narrative [facility] - 12/22/2024 7:44 PM CDT The Film Array Respiratory Panel (RP2.1) is a multiplex nucleic acid detection test for 22 targets. Viruses: Adenovirus Coronavirus HKU1, NL63, 229E, and OC43 COVID-19/Severe Acute Respiratory Syndrome Coronavirus 2 Influenza A with the following subtypes: H1, H1-2009, and H3 Influenza B Human Metapneumovirus Parainfluenza virus 1, 2, 3, and 4 Respiratory Syncytial virus (RSV) Rhinovirus/Enterovirus (cannot differentiate due to genetic similarities) Bacteria: Bordetella pertussis Bordetella parapertussis Chlamydophila pneumoniae Mycoplasma pneumoniae Jj ALFARO MICROBIOLOGY - GENERAL ORDERABLE S Final Result [facility] CLIA# [id number] [place] [address] * (ABNORMAL) SPUTUM CULTURE WITH GRAM STAIN (12/22/2024 5:44 PM CDT) CULTURE STAPHYLOCOCCUS AUREUS(A) STANLEY MCG/ML 12/26/2024 12:22 PM CDT [facility] Comment:Susceptibility on pr evious culture. CULTURE 3 to 4+ or numerous Normal upper respiratory fercho STANLEY MCG/ML 12/26/2024 12:22 PM CDT [facility] GRAM STAIN Non diagnostic pattern 12/26/2024 12:22 PM CDT [facility] GRAM STAIN 4+ (Heavy) Polymorphonuclear WBC 12/26/2024 12:22 PM CDT [facility] [employer] SPUTUM SPECIMEN OBTAINED BY ASPIRATION / Unknown Collection / Unknown 12/22/2024 5:44 PM CDT 12/22/2024 6:44 PM CDT Jj ALFARO MICROBIOLOGY - GENERAL ORDERABLE S Final Result [facility] CLIA# [id number] [address] [place] [address] * PROCALCITONIN (12/22/2024 3:45 PM CDT) PROCALCITONIN 0.09 <=0.25 ng/mL 12/22/2024 5:57 PM CDT [facility] Blood Venipuncture / Unknown 12/22/2024 3:45 PM CDT 12/22/2024 4:55 PM CDT Narrative [facility] - 12/22/2024 5:57 PM CDT The utility of procalcitonin is limited/NOT recommended in certain populations (e.g. newborns, dialysis/ESRD, patients with recent major surgery/trauma/bright, liver cirrhosis, viral hepatitis, certain cancers, etc.). Procalcitonin levels MUST be interpreted in the context of the patient's clinical condition and CANNOT be solely relied upon for diagnosis of infection. <0.25 ng/mL: Bacterial infection unlikely, particularly lower respiratory tract infections. <0.5 ng/mL: Low risk for progression to severe sepsis/septic shock. Localized infection possible. Measurements done early (<6 hours) after systemic process starts may still be low. 0.5-2 ng/mL: Moderate risk for progression to severe sepsis/septic shock. >2 ng/mL: High risk for progression to severe sepsis/septic shock. If antibiotics ARE administered, repeat testing is recommended every 2-3 days to help guide antibiotic cessation. Once a decrease of 80% or more has occurred from baseline, discontinuation of antibiotics should strongly be considered in clinically stable patients. Procalcitonin is produced in the setting of systemic inflammation, particularly bacterial infections. It is detectable within 2-4 hours and peaks within 6-24 hours. us Paolo Tatum MD CHEMISTRY ORDERABLES Final Result [facility] CLIA# [id number] [place] [address] * (ABNORMAL) PROLACTIN (12/22/2024 3:45 PM CDT) PROLACTIN 51.2(H) 3.0 - 18.6 ng/mL 12/22/2024 5:55 PM CDT [facility] Blood Venipuncture / Unknown 12/22/2024 3:45 PM CDT 12/22/2024 4:55 PM CDT us Paolo Tatum MD CHEMISTRY ORDERABLES Final Result [facility] [id number] [address] [place] [address] * (ABNORMAL) C-REACTIVE PROTEIN (12/22/2024 3:45 PM CDT) CRP 27.0(H) <5.0 mg/L 12/22/2024 5:55 PM CDT [facility] Blood Venipuncture / Unknown 12/22/2024 3:45 PM CDT 12/22/2024 4:55 PM CDT us Paolo Tatum MD CHEMISTRY ORDERABLES Final Result Performing Organization Address City/[facility]/ZIP Co de Phone Number [facility]# [id number] [place] [address] * EXTRA TUBE (URINE GODFREY) (12/22/2024 3:40 PM CDT) Urine URINE SPECIMEN OBTAINED BY CLEAN CATCH PROCEDURE / Unknown Collection / Unknown 12/22/2024 3:40 PM CDT 12/22/2024 4:55 PM CDT Clive Dodge MD URINE ORDERABLES Final Res ult [facility] CLIA# [id number] [place] [address] * EXTRA TUBE (URINE CONTAINER) (12/22/2024 3:40 PM CDT) Urine URINE SPECIMEN OBTAINED BY CLEAN CATCH PROCEDURE / Unknown Collection / Unknown 12/22/2024 3:40 PM CDT 12/22/2024 4:56 PM CDT Paolo Tatum MD URINE ORDERABLES Fin al Result [facility] CLIA# [id number] [place] [address] * (ABNORMAL) DRUG SCREEN, URINE (12/22/2024 3:40 PM CDT) [facility] AMPHETAMINE QUAL, URINE Presumptive Positive(A) Negative 12/22/2024 5:27 PM CDT [facility] BARBITURATE QUAL, URINE Negative Negative 12/22/2024 5:27 PM CDT [facility] BENZODIAZEPINE QUAL, URINE Presumptive Positive(A) Negative 12/22/2024 5:27 PM CDT [facility] COCAINE QUAL URINE Negative Negative 12/22/2024 5:27 PM CDT [facility] OPIATE QUAL, URINE Negative Negative 12/22/2024 5:27 PM CDT [facility] CANNABINOIDS QUAL, URINE Presumptive Positive(A) Negative 12/22/2024 5:27 PM CDT [facility] PCP QUAL, URINE Presumptive Positive(A) Negative 12/22/2024 5:27 PM CDT [facility] OXYCODONE QUAL, URINE Negative Negative 12/22/2024 5:27 PM CDT [facility] METHADONE QUAL, URINE Negative Negative 12/22/2024 5:27 PM CDT [facility] FENTANYL QUAL, URINE Presumptive Positive(A) Negative 12/22/2024 5:27 PM CDT [facility] CREATININE, URINE 321.0(H) 29.0 - 226.0 mg/dL 12/22/2024 5:27 PM CDT [facility] Comment:Reference Range vari es with fluid intake and diet. Urine URINE SPECIMEN OBTAINED BY CLEAN CATCH PROCEDURE / Unknown Collection / Unknown 12/22/2024 3:40 PM CDT 12/22/2024 4:56 PM CDT Narrative [facility] - 12/22/2024 5:27 PM CDT This test is a qualitative screen. The presumptive positive results should not be used for legal purposes. If confirmation of results is desired, the lab must be contacted without delay. Drug Ref. Range Screening Threshold Amphetamines Negative 500 ng/mL Barbiturates Negative 200 ng/mL Benzodiazepines Negative 100 ng/mL Cannabinoids Negative 50 ng/mL Cocaine Negative 150 ng/mL Methadone Negative 300 ng/mL Opiates Negative 300 ng/mL Oxycodone Negative 100 ng/mL Phencyclidine Negative 25 ng/mL Fentanyl Negative 5 ng/mL Jj ALFARO URINE ORDERABLES Final Result [facility]# [id number] [place] [address] * (ABNORMAL) URINALYSIS WITH REFLEX MICROSCOPIC (12/22/2024 3:40 PM CDT) COLOR UA Shereen(A) Pale to Dark Yellow 12/22/2024 5:14 PM CDT [facility] CLARITY UA Slightly Cloudy(A) Clear 12/22/2024 5:14 PM CDT [facility] SPECIFIC GRAVITY UA 1.031 1.003 - 1.035 12/22/2024 5:14 PM CDT [facility] PH UA 5.0 5.0 - 8.0 12/22/2024 5:14 PM CDT [facility] LEUKOCYTE ESTERASE UA Negative Negative 12/22/2024 5:14 PM CDT [facility] NITRITE UA Negative Negative 12/22/2024 5:14 PM CDT [facility] PROTEIN UA 2+(A) Negative 12/22/2024 5:14 PM CDT [facility] GLUCOSE UA Negative Negative 12/22/2024 5:14 PM CDT [facility] KETONES UA 2+(A) Negative 12/22/2024 5:14 PM CDT [facility] UROBILINOGEN UA 2.0(A) <2.0 mg/dL 5:14 PM CDT [facility] BILIRUBIN UA Negative Negative 12/22/2024 5:14 PM CDT [facility] BLOOD UA Negative Negative 12/22/2024 5:14 PM CDT [facility] WBC UA 6-10(A) 0 - 2 /hpf 12/22/2024 5:14 PM CDT [facility] RBC UA 0-2 0 - 2 /hpf 12/22/2024 5:14 PM CDT [facility] BACTERIA UA Negative Negative /hpf 12/22/2024 5:14 PM CDT [facility] EPITHELIAL CELLS, URINE 0-5 0 - 5 /hpf 12/22/2024 5:14 PM CDT [facility] HYALINE CAST 11-25(A) None Seen, 0-2 /lpf 12/22/2024 5:14 PM CDT [facility] Urine URINE SPECIMEN OBTAINED BY CLEAN CATCH PROCEDURE / Unknown Collection / Unknown 12/22/2024 3:40 PM CDT 12/22/2024 4:55 PM CDT Clive Dodge MD URINE ORDERABLES Final Res ult [facility] CLIA# [id number] [place] [address] * (ABNORMAL) PTT (12/22/2024 12:40 PM CDT) PTT 22.2(L) 23.1 - 37.1 seconds 12/22/2024 1:22 PM CDT [facility] Blood Venipuncture / Unknown 12/22/2024 12:40 PM CDT 12/22/2024 12:51 PM CDT Result [facility] Clive Dodge MD HEMATOLOGY ORDERABLES Zee l Result Performing Organization Address City/[facility]/ZIP Co de Phone Number [facility]# [id number] [place] [address] * PROTIME-INR (12/22/2024 12:40 PM CDT) PROTIME 14.1 11.5 - 14.7 Seconds 12/22/2024 1:22 PM CDT [facility] INR 1.1 0.9 - 1.1 12/22/2024 1:22 PM CDT [facility] [employer] [facility] Blood Venipuncture / Unknown 12/22/2024 12:40 PM CDT 12/22/2024 12:51 PM CDT Result [facility] Clive Dodge MD HEMATOLOGY ORDERABLES Zee l Result Performing Organization Address City/[facility] Co de Phone Number [facility] [employer] [facility] [id number] [place] [address] * Critical Care (12/22/2024 12:07 PM CDT) Narrative Clive Dodge MD - 12/22/2024 12:07 PM CDT Clive Dodge MD 12/22/2024 3:06 PM Critical Care Performed by: Clive Dodge MD Authorized by: Clive Dodge MD Critical care provider statement: Critical care time (minutes): 45 Critical care was necessary to treat or prevent imminent or life-threatening deterioration of the following conditions: Respiratory failure and ASPARAGUS BUNCHER failure or compromise Critical care was time spent personally by me on the following activities: Re-evaluation of patient's condition and pulse oximetry I assumed direction of critical care for this patient from another provider in my specialty: no Care discussed with: admitting provider Comments: Intubation, vent management, reevaluation. Result [facility] Clive Dodge MD PROCEDURE/MINOR SURGICAL O RDERABLES Final Result * HEMOGLOBIN A1C (08/21/2024 8:46 PM CDT) HEMOGLOBIN A1C 5.1 <=5.6 % 08/24/2024 10:31 AM CDT [facility] [employer] [facility] EST. 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 L LUNG 12/22/2024 12/22/2024 Insurance [facility] MEDICAID BCBS [employer] MEDICAID DISABILITY DETERMINATION Advance Directives For more information, please contact: [phone] * Full Code (Latest Code Status on File) Date Activated Date Inactivated Comments 12/22/2024 5:33 PM 12/23/2024 10:23 PM * Default Full Code - Needs Discussion Date Activated Date Inactivated Comments 12/22/2024 3:45 PM 12/22/2024 5:33 PM * Full Code Date Activated Date Inactivated Comments 08/21/2024 8:27 PM 08/24/2024 4:43 PM * Full Code Date Activated Date Inactivated Comments 08/10/2023 3:01 PM 08/12/2023 4:27 PM * Full Code Date Activated Date Inactivated Comments 07/06/2022 11:02 PM 07/09/2022 5:56 PM Care Teams Training And Development Director Relationship Specialty Start Date End Date Aniceto Castaneda MD [address] [id number] PCP - General Family Practice 12/26/24
[2025-01-16 21:11] LABS: Glucose Urine UA Negative (Normal); Nitrate Urine Negative (Negative); Specific Gravity, Urine 1.026 (1.005-1.030)
[2025-01-16 21:16] LABS: Add Urine Microscopic? YES
[2025-01-16 21:29] LABS: Hematocrit 35.1 % (36-47); Hemoglobin 11.40 g/dL (11.27-16.99); Mean Corpuscular HGB Conc 32.5 g/dL (30-55); Mean Corpuscular Hemoglobin 28.6 pg (27-33); Mean Corpuscular Volume 88.0 fl (85-98); Nucleated Red Blood Cells % 0 %; Platelet Count 324 10^3/cmm (157-399); Red Blood Count 3.99 10^6/uL (3.85-5.65); White Blood Count 18.77 10^3/uL (3.29-11.43)
[2025-01-16 21:41] LABS: HCG, Serum Qual Negative (Negative)
[2025-01-16 21:47] LABS: Alanine Aminotransferase 45 U/L (0-33); Albumin Level 4.1 g/dL (3.5-5.2); Alkaline Phosphatase 84 U/L (35-105); Anion Gap 26.5 (5-19); Aspartate Amino Transferase 40 U/L (0-32); Blood Urea Nitrogen 38 mg/dL (6-20); Calcium 9.0 mg/dL (8.5-10.5); Carbon Dioxide 16 mmol/L (22-29); Chloride 102 mmol/L (98-107); Creatinine Clr Calc Pharmacy 53.5042; Globulin 2.7 g/dL (1.3-4.6); Glucose 73 mg/dL (65-115); Osmolality Calculated 300 mOsm/kg (285-295); Potassium 3.5 mmol/L (3.5-5.1); Sodium 141 mmol/L (136-145); Total Protein 6.8 g/dL (6.6-8.7)
[2025-01-16 22:00] LABS: ABG PCO2 34.5 mmHg (35-45); ABG PH Result 7.33 (7.35-7.45); Alveolar-Arterial Oxygen Gradi 3.4 mmHg (5-10); Arterial Blood Gas Hematocrit 35.6 % (37-47); Blood Gas Allen Test Pos; Blood Gas Operator Identificat gerca; Blood Gas Sample Site Radial, left; Blood Gas Sample Type Arterial; Carboxyhemoglobin 1.3 %THgb (0.4-20.1); Glucose Level-ABG 70.0 mg/dL (70-115); HCO3 ABG 18.0 mmol/L (22-26); Ionized Calcium Level - ABG 1.2 mmol/L (1.1-1.4); Methemoglobin 1.1 % (0.4-1.5); Oxygen Saturation ABG 95.0; PO2 ABG 79.8 mmHg (80.0-100.0); PO2 FiO2 Ratio Arterial Blood 380; Potassium Level - ABG 3.3 mmol/L (3.5-5.0); Sodium Level - ABG 144.0 mmol/L (131-143)
[2025-01-16] MEDS: etomidate 2 mg/mL INJ SDV 10 mL 30 MG IVP (23:59)
[2025-01-17] VITALS (92 sets, daily range): BP systolic 73–147; BP diastolic 42–84; PULSE 71–102; RESP 14–83; TEMP 36.3–36.8; O2SAT 77–100; BMI 32.6
[2025-01-17] MEDS: vecuronium 10 mg SDV IVP
[2025-01-17] MEDS: propofol 1,000 MG/100 ML INJ 10.45 MG IV (00:04)
--- NOTE | 2025-01-17 00:13 | PC.NURSE ---
Pt was intubated at 0002 7.5 et-tube 25@ the lip 30 of Etomidate @2359 10 of Vecuronium @0000 used for intubation.
--- NOTE | 2025-01-17 00:39 | XRR_ITS ---
PROCEDURE INFORMATION: Exam: XR Chest Exam date and time: 01/17/2025 12:48 AM Age: 40 years old Clinical indication: Device placement; Ng tube; Additional info: Et og tube placement TECHNIQUE: Imaging protocol: Radiologic exam of the chest. Views: 1 view. COMPARISON: CR XR chest 1V portable [id number] 01/16/2025 9:06 PM FINDINGS: Tubes, catheters and devices: The endotracheal tube terminates at the level of the evelyne. The enteric tube courses expected path of the esophagus and terminates within the stomach. The side port is at/just below the gastroesophageal junction, appropriately seated. Lungs: Minimal basilar airspace opacities favor atelectatic changes. Pleural spaces: No pleural effusion. No pneumothorax is seen. Heart/Mediastinum: Initial radiograph at 12:58 a.m. demonstrates a looped enteric tube in the esophagus. Subsequent radiograph at 1:08 a.m. demonstrates repositioning. Mediastinal contours are within normal limits. The heart is normal in size. Bones/joints: No lytic or blastic lesions. No acute osseous abnormality. Other findings: Free intra-abdominal air is not adequately assessed on supine radiographs. XR/XR chest 1V [id number] IMPRESSION: 1. The endotracheal tube terminates at the level of the evelyne. Mild retraction and reimaging is recommended. 2. Appropriately seated enteric tube. 3. Suggested basilar atelectasis.
[2025-01-17 01:01] LABS: ABG PCO2 39.2 mmHg (35-45); ABG PH Result 7.23 (7.35-7.45); Arterial Blood Gas Hematocrit 33.3 % (37-47); Blood Gas Allen Test Pos; Blood Gas Operator Identificat gerca; Blood Gas Sample Site Radial, left; Blood Gas Sample Type Arterial; Carboxyhemoglobin 1.2 %THgb (0.4-20.1); Glucose Level-ABG 82.0 mg/dL (70-115); HCO3 ABG 16.4 mmol/L (22-26); Ionized Calcium Level - ABG 1.1 mmol/L (1.1-1.4); Methemoglobin 1.3 % (0.4-1.5); Oxygen Saturation ABG > 99.1; PO2 ABG 344.0 mmHg (80.0-100.0); Potassium Level - ABG 3.7 mmol/L (3.5-5.0); Sodium Level - ABG 145.0 mmol/L (131-143)
[2025-01-17 01:02] LABS: Alveolar-Arterial Oxygen Gradi 21.9 mmHg (5-10); Blood Gas CMV 16.0; PEEP 5.0 cmH20; PO2 FiO2 Ratio Arterial Blood 430
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
[2025-01-17] MEDS: ketamine 100 mg/mL Inj 5 mL 200 MG IVP ×3 (02:22→04:54)
[2025-01-17 02:23] LABS: Thyroid Stimulating Hormone 0.79 uIU/mL (0.27-4.20)
[2025-01-17 02:26] LABS: Acetaminophen < 5.0 ug/mL (10-30); Alcohol Level < 10 mg/dL (0-10); Salicylate < 0.3 mg/dL (3-10)
[2025-01-17 02:39] LABS: PCP Screen Urine Negative (Negative)
[2025-01-17 02:43] LABS: HIV 1 & 2 Antigen Non-Reactive (Non-Reactiv)
[2025-01-17 02:49] LABS: Hepatitis A Antibody IgM Non-Reactive (Nonreactive); Hepatitis B Surface Antigen Non-Reactive (Nonreactive)
[2025-01-17] MEDS: midazolam hcl 100 MG/100 ML BAG IV (02:56)
[2025-01-17 02:58] LABS: Vitamin B12 > 2000 pg/mL (232-1245)
[2025-01-17] MEDS: fentaNYL 1,000 MCG/100 ML BAG 2.5 MCG IV (03:31)
[2025-01-17] MEDS: propofol 1,000 MG/100 ML INJ 26.13 MG IV ×2 (05:14→21:40)
[2025-01-17] MEDS: dexmedeTOMIDine 0.9 % NaCL 400 MCG/100 ML PREMIX IV ×2 (05:33→22:35)
[2025-01-17 06:00] LABS: ABG PCO2 42.4 mmHg (35-45); ABG PH Result 7.26 (7.35-7.45); Arterial Blood Gas Hematocrit 34.3 % (37-47); Blood Gas Allen Test Pos; Blood Gas Operator Identificat gerca; Blood Gas Sample Site Radial, left; Blood Gas Sample Type Arterial; HCO3 ABG 19.0 mmol/L (22-26); PO2 ABG 171.0 mmHg (80.0-100.0); PO2 FiO2 Ratio Arterial Blood 427
[2025-01-17 06:01] LABS: PEEP 5.0 cmH20
[2025-01-17] MEDS: propofol 1,000 MG/100 ML INJ 50 MG IV ×2 (09:06→12:29)
--- NOTE | 2025-01-17 09:29 | XRR_ITS ---
PROCEDURE INFORMATION: Exam: XR Chest Exam date and time: 01/17/2025 9:55 AM Age: 40 years old Clinical indication: Device placement; Ett placement (vent status); Additional info: Moved et tube TECHNIQUE: Imaging protocol: Radiologic exam of the chest. Views: 1 view. COMPARISON: CR (CHEST, ) 01/17/2025 12:48 AM FINDINGS: Tubes, catheters and devices: ET tube is present with the tip 1.7 cm above the evelyne. Orogastric cannula is present with the tip below the image and left hemidiaphragm. Lungs: There is bibasilar consolidation greater on the left. Pleural spaces: Unremarkable. No pleural effusion. No pneumothorax. Heart/Mediastinum: Unremarkable. No cardiomegaly. Bones/joints: Unremarkable. XR/XR chest 1V portable [id number] IMPRESSION: 1. ET tube has been retracted to 1.7 cm above the evelyne. Ideally it should be at 5 cm. 2. Bibasilar consolidation/atelectasis
[2025-01-17 09:46] LABS: Hematocrit 38.2 % (36-47); Hemoglobin 11.70 g/dL (11.27-16.99); Mean Corpuscular HGB Conc 30.6 g/dL (30-55); Mean Corpuscular Hemoglobin 29.0 pg (27-33); Mean Corpuscular Volume 94.8 fl (85-98); Nucleated Red Blood Cells % 0 %; Platelet Count 267 10^3/cmm (157-399); Red Blood Count 4.03 10^6/uL (3.85-5.65); White Blood Count 14.80 10^3/uL (3.29-11.43)
[2025-01-17 10:02] LABS: Ammonia 53 umol/L (11-51)
[2025-01-17 10:04] LABS: Alanine Aminotransferase 41 U/L (0-33); Albumin Level 3.7 g/dL (3.5-5.2); Alkaline Phosphatase 76 U/L (35-105); Anion Gap 21.0 (5-19); Aspartate Amino Transferase 33 U/L (0-32); Blood Urea Nitrogen 24 mg/dL (6-20); Calcium 7.9 mg/dL (8.5-10.5); Carbon Dioxide 15 mmol/L (22-29); Chloride 108 mmol/L (98-107); Creatinine Clr Calc Pharmacy 105.9490; Globulin 2.7 g/dL (1.3-4.6); Glucose 82 mg/dL (65-115); Osmolality Calculated 293 mOsm/kg (285-295); Potassium 4.0 mmol/L (3.5-5.1); Sodium 140 mmol/L (136-145); Total Protein 6.4 g/dL (6.6-8.7)
[2025-01-17 10:11] LABS: Procalcitonin 0.84 ng/mL (0-0.5)
[2025-01-17] MEDS: heparin 5,000 unit/mL INJ 1 mL 5000 UNIT SUBCUT ×2 (10:38→21:40)
--- NOTE | 2025-01-17 11:45 | XR_ITS ---
WS: [id number] PORTABLE CHEST HISTORY: Post PICC insertion COMPARISON: 01/17/2025 Right-sided PICC line is in good position with tip terminating near the cavoatrial junction. Tape patient is intubated. Nasogastric tube in good position. Consolidation at the RIGHT lung base with slight progression since earlier the same day which is likely atelectasis. Increased density posterior to the LEFT heart may represent additional area of atelectasis. No pleural effusion or pneumothorax. Cardiac size: Normal. Mediastinum/Aorta: Normal mediastinum. No osseous abnormality seen. XR/XR chest 1V portable [id number] IMPRESSION: 1. Right-sided PICC line in good position. 2. Endotracheal tube and nasogastric tubes in good position. 3. Bilateral lower lobe consolidations likely atelectasis.
[2025-01-17] MEDS: cefTRIAXone 1,000 mg SDV 1000 MG IVP (12:30)
--- NOTE | 2025-01-17 13:00 | PICC.NOTE ---
Triple lumen PICC placed to right basilic vein. Referred to vascular access nurse for PICC placement due to multiple IV gtts and provider request. Risks and benefits discussed and informed consent obtained from pt mother, Jessica, via phone. Right arm assessed with right basilic vein measuring 4.2 mm, straight, and apparent best choice for placement. Using sterile technique and MST, right basilic vein accessed x 1 stick. Mid-arm circumference measured 10 cm from right AC 31 cm. Trimmed cath 46 cm with 1 cm external length noted. CXR shows tip in cavoatrial junction, in good position for use per radiologist. Line secured with stat-lock. Insertion site covered with Biopatch and TSM. Report given to bedside nurse, Jf, RN.
[2025-01-17] MEDS: pantoprazole 40 mg SDV IVP (14:33)
[2025-01-17 14:51] LABS: Lactic Sepsis W/Reflex 0.6 mmol/L (0.5-2.2)
[2025-01-17] MEDS: fentaNYL 1,000 MCG/100 ML BAG 7.5 MCG IV (15:08)
--- NOTE | 2025-01-17 15:10 | PC.NURSE ---
This nurse started transfusion of new propofol drip in the MAR at 50 mls/hr instead of 50 mcg/kg/min. The propofol drip in the pump is set to the correct 50 mcg/kg/min. MAR shows that transfusion should end soon when in fact it is not. MAR was updated to reflect that the pump is actually running at 50 mcg/kg/min.
--- NOTE | 2025-01-17 16:03 | PHA.VACGOAL ---
Vancomycin Goal - Goal Vancomycin Goal:: 15-20 mg/L Vancomycin Indication:: Pneumonia - Therapy Current therapy:: Other Antibiotic (CEFTRIAXONE) Day of therpy:: Day []of [] . Actual body weight (kg): 208 lb 5.389 oz - Data Labs: WBC 14.80 10^3/uL (3.29-11.43) H 01/17/25 09:38 RBC 4.03 10^6/uL (3.85-5.65) 01/17/25 09:38 Hgb 11.70 g/dL (11.27-16.99) 01/17/25 09:38 Hct 38.2 % (36-47) 01/17/25 09:38 MCV 94.8 fl (85-98) D 01/17/25 09:38 MCH 29.0 pg (27-33) 01/17/25 09:38 MCHC 30.6 g/dL (30-55) D 01/17/25 09:38 RDW 13.8 % (12.1-15.1) 01/17/25 09:38 Sodium 140 mmol/L (136-145) 01/17/25 09:38 Potassium 4.0 mmol/L (3.5-5.1) 01/17/25 09:38 Chloride 108 mmol/L (98-107) H 01/17/25 09:38 Carbon Dioxide 15 mmol/L (22-29) L 01/17/25 09:38 Anion Gap 21.0 (5-19) H 01/17/25 09:38 BUN 24 mg/dL (6-20) H 01/17/25 09:38 Creatinine 0.8 mg/dL (0.5-0.9) 01/17/25 09:38 GFR Calculation 79.4 mL/min (90-130) L 01/17/25 09:38 Last dialysis session:: N/A Treatment plan:: new consult Regimen:: STARTING LOADING DOSE OF 2500 MG FOR TREATMENT OF SUSPECTED PNEUMONIA. SCHEDULED MAINTENANCE DOSE OF 1750 MG Q12H PATIENT HAS HAD RECENT CAMMY. WILL CONTINUE TO MONITOR RENAL FUNCTION AND WILL DRAW TROUGH PRIOR TO 4TH DOSE.
[2025-01-17] MEDS: propofol 1,000 MG/100 ML INJ 23.51 MG IV (17:02)
--- NOTE | 2025-01-17 17:03 | P.PN_ITS ---
Subjective 2 Subjective: - Patient was seen this morning - No family members at bedside -currently intubated, sedated on mechani augustina ventilation - On 35% FiO2 - Vitals/I&O/Wt Last Vital Signs Temp 98.2 F 01/17/25 14:00 Pulse 79 01/17/25 17:00 Resp 16 01/17/25 16:05 BP 105/60 01/17/25 17:00 Pulse Ox 100 01/17/25 17:00 O2 Del Method Mechanical Ventilation 01/17/25 17:00 O2 Flow Rate 35 01/17/25 16:35 FiO2 35 01/17/25 17:00 01/17/25 01/17/25 01/17/25 06:59 14:59 22:59 Intake Total 1109.520 / 6106.555 5661.194 / 1244.194 91.542 / 1335.736 Output Total 1050 / 1050 Balance 1109.520 / 1109.520 194.194 / 194.194 91.542 / 285.736 Weight last 48 hrs Weight 94.5 kg Weight 87.09 kg Physical Exam 2 Const: COMMON NORMALS: no acute distress ORIENTATION/CONSCIOUSNESS: not awake, not oriented to person, not oriented to place and not oriented to time OTHER: Intubated, sedated, mechanical ventilation Resp: COMMON NORMALS: normal respiratory effort, No retractions, No use of accessory muscles and clear to auscultation bilaterally AUSCULTATION: clear to auscultation bilaterally Cardio: COMMON NORMALS: regular rate, regular rhythm, S1 normal heart sound present and S2 normal heart sound present RATE: regular rate RHYTHM: r egular rhythm HEART SOUNDS: S1 normal heart sound present and S2 normal heart sound present GI: COMMON NORMALS: Normal to inspection, nondistended, normoactive bowel sounds present, Soft to palpation and non-tender PALPATION: Yes Soft to palpation Extremity: COMMON NORMALS: no calf tenderness and no pedal edema Neuro: SENSORIUM/ORIENTATION: No oriented to person, No oriented to place and No oriented to time Psych: COMMON NORMALS: mental status grossly normal Skin: NARRATIVE SKIN EXAM: Multiple bruising bilateral lower extremity, seems a superficial bug bites, and superficial bruising Urinary Catheter Management: Ramirez: Cath Placed During This Visit: yes Reason for Continuing Indwelling Catheter: Accurate Measurement of Urinary Output in Critically Ill Patients Urinary Catheter Date of Insertion: 01/17/25 Urinary Catheter Time of Insertion: 00:30 Data 01/17/25 09:38 01/17/25 09:38 Micro: Microbiology 01/17/25 09:19 Gram Stain - Final Sputum - Endotracheal Tube Aspirate 01/17/25 01:49 Blood Culture - Preliminary Blood SPECIMEN COLLECTED 01/17/25 01:45 Blood Culture - Preliminary Blood SPECIMEN COLLECTED A&P Assessment and plan 1. Acute delirium: 2. Polysubstance abuse: 3. Altered mental status: 4. CAMMY (acute kidney injury): 5. Leukocytosis: 6. Acute hypoxic respiratory failure: 7. Increased anion gap metabolic acidosis: 8. Transaminitis: Plan: 40-year-old lady with a past medical history of asthma, currently brought to the hospital with acute delirium, altered mental status severe agitation which persisted and spite of receiving ketamine and Versed. Eventually patient needed to be intubated to prevent bodily harm and for airway protection. Acute hypoxic respiratory failure - Currently intubated, sedated on mechanical ventilation -History of asthma Plan -Propofol for sedation - Fentanyl for sedation -DuoNeb, budesonide - Stop Versed, switch to Precedex - Wean sedation today, spontaneous breathing trial - Monitor respiratory status closely - Monitor mentation off sedation Sepsis? - Patient has had soft blood pressures in the emergency room, in ICU - Follow-up blood cultures -sputum culture -Urine culture - COVID - Vancomycin - Rocephin Acute encephalopathy - Concerns for acute delirium - Urine toxicology screen positive for methamphetamine, marijuana - Neurochecks - NIH stroke scale Increased anion gap and metabolic acidosis - Lactic acid within normal limits - Blood sugars reasonable - IV hydration Acute kidney injury, IV fluids Leukocytosis - Etiology unclear - Follow blood cultures - For now continue Continue Zosyn - Methamphetamine abuse Marijuana abuse Transaminitis, - Monitor Hyperammonemia - Will monitor - 1 dose of lactulose DVT prophylaxis heparin 5000 every 12 hours Presumed to be full code. PDMP PDMP Reviewed: Not Reviewed Attestations 2 Medical Necessity Statement*: Patient requires hospitalization, inpatient, greater than 2 midnight, for acute hypoxic respiratory failure, acute encephalopathy, increased anion gap metabolic acidosis, CAMMY, leukocytosis, methamphetamine abuse Coding Level of Care Code Critical Care >/= 30 minutes Critical care time (in minutes): 45 The high probability of a clinically significant, sudden or life threatening deterioration, as referenced in this documentation, required my full and direct attention, intervention and personal management. The critical care time shown is in addition to time spent performing any reported separately billable procedures and includes the following: [x] Data and vital sign review and interpretation [x ] Patient assessment, examination and intervention [x] Medication orders and management [x] Patient/Family updates as able [x] Care Coordination and Documentation. Diagnoses Acute delirium R41.0 Polysubstance abuse F19.10 Altered mental status R41.82 CAMMY (acute kidney injury) N17.9 Leukocytosis D72.829 Acute hypoxic respiratory failure J96.01 Increased anion gap metabolic acidosis E87.29 Transaminitis R74.01 Sepsis Event Note Evaluation Current stage of sepsis: ruled out/differential diagnosis Possible source: unknown Focused Exam Vital Signs Temp Pulse Resp BP Pulse Ox O2 Del Method O2 Flow Rate 01/17/25 17:00 79 105/60 100 Mechanical Ventilation 01/17/25 16:45 80 108/61 100 01/17/25 16:35 80 108/61 100 Mechanical Ventilation 35 01/17/25 16:05 16 100 01/17/25 15:01 78 16 100 Mechanical Ventilation 01/17/25 14:00 75 01/17/25 14:00 98.2 F 75 120/74 100 Mechanical Ventilation 01/17/25 13:39 16 100 01/17/25 12:00 01/17/25 11:58 Mechanical Ventilation 01/17/25 11:30 100/57 01/17/25 11:25 75 100/57 100 Mechanical Ventilation 01/17/25 11:00 77 29 H 106/54 100 01/17/25 10:54 16 100 01/17/25 10:30 75 16 107/54 100 01/17/25 10:25 76 96/60 100 Mechanical Ventilation 01/17/25 10:00 75 17 101/60 100 01/17/25 09:30 76 22 H 106/57 100 01/17/25 09:30 16 100 01/17/25 09:15 26 H 100 01/17/25 09:00 76 14 108/64 100 01/17/25 08:40 77 109/58 100 Mechanical Ventilation 01/17/25 08:30 76 16 102/56 100 01/17/25 08:00 77 16 104/60 100 01/17/25 07:46 16 100 01/17/25 07:38 78 100 Mechanical Ventilation 01/17/25 07:30 78 16 110/62 100 01/17/25 07:24 79 105/58 100 Mechanical Ventilation 01/17/25 07:00 78 19 H 100 01/17/25 06:30 79 26 H 102/58 100 01/17/25 06:15 79 21 H 101/58 100 01/17/25 06:10 79 23 H 102/66 100 01/17/25 06:05 78 25 H 102/66 100 01/17/25 06:00 79 24 H 102/66 100 01/17/25 05:55 80 23 H 105/62 100 01/17/25 05:45 80 22 H 115/61 100 01/17/25 05:30 81 20 H 100 01/17/25 05:25 79 18 100 01/17/25 05:20 77 20 H 100 01/17/25 05:15 81 21 H 108/60 77 L 01/17/25 05:10 79 20 H 108/60 100 01/17/25 05:05 80 18 108/60 100 FiO2 01/17/25 17:00 35 01/17/25 16:45 01/17/25 16:35 01/17/25 16:05 35 01/17/25 15:01 30 01/17/25 14:00 01/17/25 14:00 35 01/17/25 13:39 35 01/17/25 12:00 35 01/17/25 11:58 01/17/25 11:30 01/17/25 11:25 01/17/25 11:00 01/17/25 10:54 35 01/17/25 10:30 01/17/25 10:25 01/17/25 10:00 01/17/25 09:30 01/17/25 09:30 35 01/17/25 09:15 35 01/17/25 09:00 01/17/25 08:40 01/17/25 08:30 01/17/25 08:00 01/17/25 07:46 40 01/17/25 07:38 01/17/25 07:30 01/17/25 07:24 01/17/25 07:00 01/17/25 06:30 01/17/25 06:15 01/17/25 06:10 01/17/25 06:05 01/17/25 06:00 01/17/25 05:55 01/17/25 05:45 01/17/25 05:30 01/17/25 05:25 01/17/25 05:20 01/17/25 05:15 01/17/25 05:10 01/17/25 05:05 Respiratory exam: Present wheezes Peripheral pulse strength: 2+ Slightly Diminished Peripheral pulse location: Radial Skin exam: normal turgor Date exam was performed: 01/17/25 Time exam was performed: 17:13 Problem List 1. Acute delirium: Status: Acute 2. Polysubstance abuse: Status: Acute 3. Altered mental status: Status: Acute 4. CAMMY (acute kidney injury): Status: Acute 5. Leukocytosis: Status: Acute 6. Acute hypoxic respiratory failure: Status: Acute 7. Increased anion gap metabolic acidosis: Status: Acute 8. Transaminitis: Status: Acute
--- NOTE | 2025-01-17 17:05 | USR_ITS ---
PROCEDURE INFORMATION: Exam: US Duplex Lower Extremity Veins, Bilateral Exam date and time: 01/17/2025 5:38 PM Age: 40 years old Clinical indication: Pain; Leg, lower; Bilateral; Additional info: Swelling TECHNIQUE: Imaging protocol: Real-time duplex ultrasound of the bilateral extremities with 2-D serrano scale, color Doppler flow and spectral waveform analysis including responses to compression and other maneuvers (when performed) with image documentation. Complete exam focused on the lower extremity veins. COMPARISON: MR foot RT wo con* [id number] 04/03/2019 12:04 PM FINDINGS: Right deep veins: Unremarkable. The common femoral, superficial femoral, proximal profunda femoral and popliteal veins are patent without thrombus. Normal Doppler waveforms. Normal compressibility and/or augmentation response. Left deep veins: Unremarkable. The common femoral, superficial femoral, proximal profunda femoral and popliteal veins are patent without thrombus. Normal Doppler waveforms. Normal compressibility and/or augmentation response. Superficial veins: Greater saphenous veins at the saphenofemoral junctions are patent bilaterally without thrombus. Soft tissues: Unremarkable. US/CV venous duplex [facility] [id number] IMPRESSION: No evidence of deep vein thrombosis of the left lower extremity. The technologist reports that this study was technically difficult due to the patient's limited mobility.
--- NOTE | 2025-01-17 17:18 | ECG_ITS ---
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 Measurements Intervals [place] Rate: 81 P: 35 DE: 129 QRS: 36 QRSD: 84 T: 20 QT: 376 QTc: 437 Interpretive Statements SINUS RHYTHM MINIMAL ST DEPRESSION [0.025+ mV ST DEPRESSION] Compared to ECG 01/16/2025 22:59:08 No significant changes Electronically Signed On 01-17-2025 17:27:28 CDT by Theresa Montenegro M.D. [email or web address]
[2025-01-17] MEDS: lactulose oral liq 20 gm/30 mL UDC PO (17:33)
[2025-01-17 18:13] LABS: Troponin(5th) Baseline 11 ng/L (0-10)
[2025-01-17 18:14] LABS: Respiratory Syncytial Virus Ce NEGATIVE (Negative); SARS-CoV-2 PCR NEGATIVE (Negative)
--- NOTE | 2025-01-17 19:05 | ECG_ITS ---
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 Measurements Intervals [place] Rate: 76 P: 21 [place]: 135 QRS: 34 QRSD: 89 T: 20 QT: 400 QTc: 452 Interpretive Statements SINUS RHYTHM Compared to ECG 01/17/2025 17:18:39 ST (T wave) deviation no longer present Electronically Signed On 01-17-2025 23:53:01 CDT by Theresa Montenegro M.D. [email or web address]
[2025-01-17 19:41] LABS: Troponin 5 2HR 9.79 ng/L (0-10)
[2025-01-17 19:44] LABS: Troponin 5 2HR Delta -1.21 ABS# (0-10)
--- NOTE | 2025-01-17 23:05 | ECG_ITS ---
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 Measurements Intervals [place] Rate: 78 P: 39 [place]: 128 QRS: 39 QRSD: 90 T: 29 QT: 390 QTc: 445 Interpretive Statements SINUS RHYTHM MINIMAL ST DEPRESSION [0.025+ mV ST DEPRESSION] Compared to ECG 01/17/2025 20:04:23 ST (T wave) deviation now present Electronically Signed On 01-17-2025 23:51:57 CDT by Theresa Montenegro M.D. [email or web address]
[2025-01-17] MEDS: dextrose 5%-sod chloride 0.9% 1,000 ML 50 ML IV (23:13)
[2025-01-18] VITALS (106 sets, daily range): BP systolic 84–136; BP diastolic 32–93; PULSE 69–101; RESP 12–19; TEMP 36.7–38.2; O2SAT 92–100
[2025-01-18 00:08] LABS: Troponin 5 6HR 11.10 ng/L (0-10); Troponin 5 6HR Delta 0.10 ng/L (0-12)
[2025-01-18] MEDS: propofol 1,000 MG/100 ML INJ 26.13 MG IV (00:58)
[2025-01-18] MEDS: fentaNYL 1,000 MCG/100 ML BAG 10 MCG IV (02:28)
[2025-01-18] MEDS: norepinephrine 4 MG/250 ML BAG 7.5 MG IV (02:44)
[2025-01-18] MEDS: vancomycin 1,750 MG/350 ML PIGGYBACK 175 MG IV (04:46)
[2025-01-18] MEDS: propofol 1,000 MG/100 ML INJ 23.51 MG IV (05:29)
[2025-01-18 05:30] LABS: Hematocrit 31.6 % (36-47); Hemoglobin 9.70 g/dL (11.27-16.99); Mean Corpuscular HGB Conc 30.7 g/dL (30-55); Mean Corpuscular Hemoglobin 29.1 pg (27-33); Mean Corpuscular Volume 94.9 fl (85-98); Nucleated Red Blood Cells % 0 %; Platelet Count 213 10^3/cmm (157-399); Red Blood Count 3.33 10^6/uL (3.85-5.65); White Blood Count 11.50 10^3/uL (3.29-11.43)
[2025-01-18 05:50] LABS: Alanine Aminotransferase 33 U/L (0-33); Albumin Level 3.2 g/dL (3.5-5.2); Alkaline Phosphatase 71 U/L (35-105); Anion Gap 13.7 (5-19); Aspartate Amino Transferase 24 U/L (0-32); Blood Urea Nitrogen 6 mg/dL (6-20); Calcium 7.6 mg/dL (8.5-10.5); Carbon Dioxide 19 mmol/L (22-29); Chloride 113 mmol/L (98-107); Creatinine Clr Calc Pharmacy 147.0972; Globulin 2.4 g/dL (1.3-4.6); Glucose 107 mg/dL (65-115); Magnesium 2.3 mg/dL (1.7-2.3); Osmolality Calculated 292 mOsm/kg (285-295); Potassium 3.7 mmol/L (3.5-5.1); Sodium 142 mmol/L (136-145); Total Protein 5.6 g/dL (6.6-8.7)
--- NOTE | 2025-01-18 06:28 | PC.NURSE ---
Contacted Dr. Remy at 2828 due to patient being intubated and having a blood sugar of 77; received order at this time to switch fluids from NS to D5 with NS, MAR reflected to show orders.
[2025-01-18] MEDS: dexmedeTOMIDine 0.9 % NaCL 400 MCG/100 ML PREMIX 13.06 MCG IV (07:43)
[2025-01-18] MEDS: pantoprazole 40 mg SDV IVP (08:53)
[2025-01-18] MEDS: heparin 5,000 unit/mL INJ 1 mL 5000 UNIT SUBCUT ×2 (08:59→20:14)
[2025-01-18] MEDS: cefTRIAXone 1,000 mg SDV 1000 MG IVP (10:54)
--- NOTE | 2025-01-18 11:34 | PC.NURSE ---
Patient was successfully extubated at 1050 to 2 liter nasal cannula.
--- NOTE | 2025-01-18 11:36 | PC.NURSE ---
This nurse wasted 36.333 mls of fentanyl and 26.671 mls of propofol all witnessed by SEAN Inman.
--- NOTE | 2025-01-18 11:39 | PC.NURSE ---
Patient started to become agitated when sister was talking to them stating that they wanted to show them something in the restroom. Patient wanted to get out of bed but they had recently been extubated. Patient started to push sister back and was becoming manic in behavior trying to get out of bed. Code 10 was called and patient was placed back in bed safely.
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
[2025-01-18] MEDS: dexmedeTOMIDine 0.9 % NaCL 400 MCG/100 ML PREMIX 26.13 MCG IV ×2 (12:26→16:30)
[2025-01-18] MEDS: haloperidol inj 5 mg/mL INJ 1 mL 2 MG IM (13:08)
[2025-01-18] MEDS: LORazepam 1 MG/0.5 ML injection 2 MG IVP (13:09)
--- NOTE | 2025-01-18 13:14 | PC.SLP ---
Due to agitation and sedation level. SHOE MAKER evaluation not performed this afternoon.
[2025-01-18 13:29] LABS: Ammonia 38 umol/L (11-51)
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
--- NOTE | 2025-01-18 14:01 | PC.NURSE ---
96 hr rights reviewed with pt @9908 with assistance of [facility] security trainer Jj Gama Pt copy was left at bedside. 1:1 order placed.
[2025-01-18] MEDS: cefepime 2,000 mg SDV 2000 MG IVP ×2 (14:03→19:43)
--- NOTE | 2025-01-18 14:17 | PC.NURSE ---
This nurse was in another patient's room when they heard a code 10 called over head. When this nurse left the other patient's room they saw that this patient was trying to get out of bed and security and other staff trying to reorient her back to bed. Patient was placed in bed and restraints had to be placed on patient to prevent the patient from falling due to patient being post extubation and also preventing the patient from pulling their PICC line out. Dr. Torres ordered haldol and ativan to be given for agitation. Patient started to calm down and a 96 hour hold was placed on the patient. Patient is peacefully resting in bed.
[2025-01-18 14:36] LABS: RPR w(Moniotor) w/REFL Titer NON-REACTIVE (NON-REACTIVE)
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
[2025-01-18] MEDS: dextrose 5%-sod chloride 0.9% 1,000 ML 50 ML IV (19:44)
[2025-01-18] MEDS: dexmedeTOMIDine 0.9 % NaCL 400 MCG/100 ML PREMIX 17.42 MCG IV (21:44)
[2025-01-18] MEDS: ondansetron 2 mg/ML SDV 2 mL 4 MG IVP (22:57)
[2025-01-19] VITALS (80 sets, daily range): BP systolic 83–168; BP diastolic 42–92; PULSE 57–103; RESP 16–22; TEMP 36.6–37.1; O2SAT 90–100
--- NOTE | 2025-01-19 01:09 | PC.NURSE ---
Levophed Patient's blood pressure intermittently low with MAPs below 65, currently 90/[address] Remy notified; order received for levophed titratable drip.
[2025-01-19] MEDS: norepinephrine 4 MG/250 ML BAG 7.5 MG IV (01:15)
[2025-01-19] MEDS: dexmedeTOMIDine 0.9 % NaCL 400 MCG/100 ML PREMIX 10.89 MCG IV (04:36)
[2025-01-19] MEDS: cefepime 2,000 mg SDV 2000 MG IVP ×2 (04:51→11:47)
[2025-01-19 06:15] LABS: Hematocrit 29.5 % (36-47); Hemoglobin 9.20 g/dL (11.27-16.99); Mean Corpuscular HGB Conc 31.2 g/dL (30-55); Mean Corpuscular Hemoglobin 29.4 pg (27-33); Mean Corpuscular Volume 94.2 fl (85-98); Nucleated Red Blood Cells % 0 %; Platelet Count 188 10^3/cmm (157-399); Red Blood Count 3.13 10^6/uL (3.85-5.65); White Blood Count 8.56 10^3/uL (3.29-11.43)
[2025-01-19 06:31] LABS: Alanine Aminotransferase 34 U/L (0-33); Albumin Level 3.1 g/dL (3.5-5.2); Alkaline Phosphatase 68 U/L (35-105); Anion Gap 15.3 (5-19); Aspartate Amino Transferase 21 U/L (0-32); Blood Urea Nitrogen 4 mg/dL (6-20); Calcium 7.9 mg/dL (8.5-10.5); Carbon Dioxide 19 mmol/L (22-29); Chloride 111 mmol/L (98-107); Creatinine Clr Calc Pharmacy 176.0444; Globulin 2.6 g/dL (1.3-4.6); Glucose 87 mg/dL (65-115); Osmolality Calculated 290 mOsm/kg (285-295); Potassium 3.3 mmol/L (3.5-5.1); Sodium 142 mmol/L (136-145); Total Protein 5.7 g/dL (6.6-8.7)
[2025-01-19] MEDS: pantoprazole 40 mg SDV IVP (08:22)
[2025-01-19] MEDS: heparin 5,000 unit/mL INJ 1 mL 5000 UNIT SUBCUT ×2 (08:22→20:56)
--- NOTE | 2025-01-19 09:33 | PC.NURSE ---
Patient alert to person and place. Nursing bedside dysphasia screening attempted. Noted clearing on thin liquids.
--- NOTE | 2025-01-19 12:02 | PC.NURSE ---
Blood Glucose Level AM Blood glucose level : 90
--- NOTE | 2025-01-19 15:43 | PC.NURSE ---
Telephone order given per Dr. Shepard to hold evening dpse of PO zyprexa due to decreased level of consciousness.
[2025-01-19] MEDS: dextrose 5%-sod chloride 0.9% 1,000 ML 50 ML IV (17:34)
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
[2025-01-19] MEDS: levofloxacin-dextrose 5 % 750 MG/150 ML PREMIX 100 MG IV (20:56)
[2025-01-20] VITALS (26 sets, daily range): BP systolic 109–149; BP diastolic 58–121; PULSE 66–104; RESP 15–24; TEMP 36.6–37.3; O2SAT 92–100
[2025-01-20 04:18] LABS: Hematocrit 31.1 % (36-47); Hemoglobin 9.70 g/dL (11.27-16.99); Mean Corpuscular HGB Conc 31.2 g/dL (30-55); Mean Corpuscular Hemoglobin 28.4 pg (27-33); Mean Corpuscular Volume 91.2 fl (85-98); Nucleated Red Blood Cells % 0 %; Platelet Count 196 10^3/cmm (157-399); Red Blood Count 3.41 10^6/uL (3.85-5.65); White Blood Count 7.49 10^3/uL (3.29-11.43)
[2025-01-20 04:35] LABS: Alanine Aminotransferase 31 U/L (0-33); Albumin Level 3.2 g/dL (3.5-5.2); Alkaline Phosphatase 73 U/L (35-105); Anion Gap 13.1 (5-19); Aspartate Amino Transferase 16 U/L (0-32); Blood Urea Nitrogen 4 mg/dL (6-20); Calcium 8.2 mg/dL (8.5-10.5); Carbon Dioxide 23 mmol/L (22-29); Chloride 107 mmol/L (98-107); Creatinine Clr Calc Pharmacy 176.0444; Globulin 2.5 g/dL (1.3-4.6); Glucose 102 mg/dL (65-115); Osmolality Calculated 287 mOsm/kg (285-295); Potassium 3.1 mmol/L (3.5-5.1); Sodium 140 mmol/L (136-145); Total Protein 5.7 g/dL (6.6-8.7)
[2025-01-20] MEDS: pantoprazole 40 mg SDV IVP (08:45)
[2025-01-20] MEDS: FUROsemide 10 mg/mL SDV 4mL 40 MG IVP (08:45)
[2025-01-20] MEDS: heparin 5,000 unit/mL INJ 1 mL 5000 UNIT SUBCUT ×2 (08:46→21:01)
[2025-01-20] MEDS: methylPREDNISolone sod succ 125 mg/2 mL INJ IVP (09:19)
--- NOTE | 2025-01-20 15:45 | PC.NURSE ---
Heart rate: Nurse has observed that the patient's heart rate has been becoming increasingly variable. Often times in the 80s-90s, but occasionally jumping up into the 120's without any provocation while the patient is sleeping. These brief periods have become more frequent throughout the day. Nurse alerted Dr lino. Received orders to restart home dose of propranolol.
[2025-01-20] MEDS: polyethylene glycol 3350 Pkt 17 gm PO (17:34)
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
--- NOTE | 2025-01-20 19:16 | P.PN_ITS ---
Subjective 2 Subjective: Patient was seen this morning, she does complain of shortness of breath and wheezing, is alert oriented x 3, following all commands, she denies any suicidal ideation, no homicidal ideation, she is not sure which drugs that she was using, she is not sure exactly how she got any drugs, she has not had a bowel movement today Vitals/I&O/Wt Last Vital Signs Temp 98.1 F 01/20/25 17:01 Pulse 90 01/20/25 18:01 Resp 21 H 01/20/25 17:01 BP 133/80 01/20/25 18:01 Pulse Ox 95 01/20/25 18:01 O2 Del Method Room Air 01/20/25 18:01 O2 Flow Rate 1 01/20/25 15:00 FiO2 30 01/18/25 10:15 01/20/25 01/20/25 01/20/25 06:59 14:59 22:59 Intake Total 480 / 2069.576 300 / 300 1000 / 1300 Output Total 1350 / 1350 300 / 300 4375 / 4675 Balance -870 / 719.576 0 / 0 -3375 / -3375 Weight last 48 hrs Weight 95.799 kg Weight 94 kg Physical Exam 2 Const: COMMON NORMALS: no acute distress and patient oriented x3 Resp: COMMON NORMALS: normal respiratory effort, No retractions and No use of accessory muscles AUSCULTATION: wheezes Cardio: COMMON NORMALS: regular rate, regular rhythm, S1 normal heart sound present and S2 normal heart sound present RATE: regular rate RHYTHM: r egular rhythm HEART SOUNDS: S1 normal heart sound present and S2 normal heart sound present GI: COMMON NORMALS: Normal to inspection, nondistended, normoactive bowel sounds present and non-tender Extremity: COMMON NORMALS: no pedal edema Neuro: COMMON NORMALS: patient oriented x3 Psych: COMMON NORMALS: mental status grossly normal Urinary Catheter Management: Ramirez: Cath Placed During This Visit: yes, but has since been removed by the nurse Reason for Continuing Indwelling Catheter: Decision to DC Catheter Urinary Catheter Date of Insertion: 01/17/25 Urinary Catheter Time of Insertion: 00:30 Date Urinary Catheter Removed: 01/20/25 Time Urinary Catheter Discontinued: 12:00 Data 01/20/25 03:54 01/20/25 03:54 A&P Assessment and plan 1. Acute delirium: 2. Polysubstance abuse: 3. Altered mental status: 4. CAMMY (acute kidney injury): 5. Leukocytosis: 6. Acute hypoxic respiratory failure: 7. Increased anion gap metabolic acidosis: 8. Transaminitis: 9. Urinary tract infection: 10. Pneumonia: Plan: 40-year-old lady with a past medical history of asthma, currently brought to the hospital with acute delirium, altered mental status severe agitation which persisted and spite of receiving ketamine and Versed. Eventually patient needed to be intubated to prevent bodily harm and for airway protection. Acute hypoxic respiratory failure - Extubated -History of asthma -sputum showing Klebsiella pneumonia Plan -extubated nasal cannula -DuoNeb, budesonide - Currently on Levaquin - Monitor respiratory status closely - Monitor mentation off sedation - 1 dose Solu-Medrol for wheezing, concern for asthma exacerbation - 1 dose IV Lasix Sepsis, resolved - Patient has had soft blood pressures in the emergency room, in ICU - Follow-up blood cultures -sputum culture, shows gram negative -Urine culture shows ecoli - COVID negative - continue cefepime Pneumonia - Gram-negative sputum culture - Continue IV Levaquin - DuoNeb, budesonide Klebsiella pneumonia ESBL UTI - Continue Levaquin Acute encephalopathy, resolved - Concerns for acute delirium - Urine toxicology screen positive for methamphetamine, marijuana - Neurochecks - NIH stroke scale Increased anion gap and metabolic acidosis resolved - Lactic acid within normal limits - Blood sugars reasonable - IV hydration Acute kidney injury, stopped Leukocytosis - Etiology secondary to UTI, negative pneumonia - Follow blood cultures -urine culture ecoli -sputum showing gram neagtive - For now continue Continue Cefepime Methamphetamine abuse Marijuana abuse Transaminitis, - Monitor Hyperammonemia - Will monitor - 1 dose of lactulose DVT prophylaxis heparin 5000 every 12 hours full code. PDMP PDMP Reviewed: Not Reviewed Attestations 2 Medical Necessity Statement*: Patient requires hospitalization for ESBL pneumonia UTI, with pneumonia, with respiratory failure, hypoxia requiring 2 L Diagnoses Acute delirium R41.0 Polysubstance abuse F19.10 Altered mental status R41.82 CAMMY (acute kidney injury) N17.9 Leukocytosis D72.829 Acute hypoxic respiratory failure J96.01 Increased anion gap metabolic acidosis E87.29 Transaminitis R74.01 Urinary tract infection N39.0 Pneumonia J18.9
[2025-01-20] MEDS: levofloxacin-dextrose 5 % 750 MG/150 ML PREMIX 100 MG IV (21:00)
[2025-01-21] VITALS (15 sets, daily range): BP systolic 94–142; BP diastolic 53–96; PULSE 56–90; RESP 14–30; TEMP 36.6–37; O2SAT 90–100; BMI 34.1
[2025-01-21 04:32] LABS: Hematocrit 33.0 % (36-47); Hemoglobin 10.50 g/dL (11.27-16.99); Mean Corpuscular HGB Conc 31.8 g/dL (30-55); Mean Corpuscular Hemoglobin 28.4 pg (27-33); Mean Corpuscular Volume 89.2 fl (85-98); Nucleated Red Blood Cells % 0 %; Platelet Count 262 10^3/cmm (157-399); Red Blood Count 3.70 10^6/uL (3.85-5.65); White Blood Count 12.82 10^3/uL (3.29-11.43)
[2025-01-21 05:03] LABS: NT Pro B Type Natriuretic Pept 279 pg/mL (0-125)
[2025-01-21 05:12] LABS: Alanine Aminotransferase 33 U/L (0-33); Albumin Level 3.7 g/dL (3.5-5.2); Alkaline Phosphatase 84 U/L (35-105); Aspartate Amino Transferase 20 U/L (0-32); Blood Urea Nitrogen 4 mg/dL (6-20); Calcium 9.4 mg/dL (8.5-10.5); Carbon Dioxide 23 mmol/L (22-29); Chloride 103 mmol/L (98-107); Creatinine Clr Calc Pharmacy 181.0415; Globulin 2.4 g/dL (1.3-4.6); Glucose 161 mg/dL (65-115); Osmolality Calculated 290 mOsm/kg (285-295); Sodium 140 mmol/L (136-145); Total Protein 6.1 g/dL (6.6-8.7)
[2025-01-21 05:16] LABS: Anion Gap 17.9 (5-19); Potassium 3.9 mmol/L (3.5-5.1)
[2025-01-21] MEDS: polyethylene glycol 3350 Pkt 17 gm PO (08:28)
[2025-01-21] MEDS: heparin 5,000 unit/mL INJ 1 mL 5000 UNIT SUBCUT (08:28)
[2025-01-21] MEDS: pantoprazole 40 mg SDV IVP (08:28)
[2025-01-21] MEDS: FUROsemide 10 mg/mL SDV 2mL 20 MG IVP (08:40)
--- NOTE | 2025-01-21 13:06 | PC.NURSE ---
Report called to [facility] on [facility].
--- NOTE | 2025-01-21 13:28 | PC.NURSE ---
Transferred to [facility] via wheelchair with cyber security administrator at bedside.
--- NOTE | 2025-01-21 14:15 | P.PN_ITS ---
Subjective 2 Subjective: Patient was seen this morning, currently alert oriented x 3, following all commands, denies any fevers, no chills, does have a cough, does report a sore throat, no abdominal pain, no diarrhea, no lightheadedness, no dizziness, discussed ambulation, monitoring room air, plan of moving to neuropsychiatric unit Vitals/I&O/Wt Last Vital Signs Temp 98.5 F 01/21/25 12:00 Pulse 58 L 01/21/25 12:00 Resp 18 01/21/25 12:00 BP 126/78 01/21/25 12:00 Pulse Ox 99 01/21/25 10:00 O2 Del Method Room Air 01/21/25 10:00 O2 Flow Rate 1 01/20/25 15:00 FiO2 30 01/18/25 10:15 01/20/25 01/21/25 01/21/25 22:59 06:59 14:59 Intake Total 1000 / 1300 150 / 1450 1400 / 1400 Output Total 4375 / 4675 Balance -3375 / -3375 150 / -3225 1400 / 1400 Weight last 48 hrs Weight 99.291 kg Weight 95.799 kg Physical Exam 2 Const: COMMON NORMALS: no acute distress and patient oriented x3 Resp: COMMON NORMALS: normal respiratory effort, No retractions, No use of accessory muscles and clear to auscultation bilaterally AUSCULTATION: clear to auscultation bilaterally Cardio: COMMON NORMALS: regular rate, regular rhythm, S1 normal heart sound present and S2 normal heart sound present RATE: regular rate RHYTHM: r egular rhythm HEART SOUNDS: S1 normal heart sound present and S2 normal heart sound present GI: COMMON NORMALS: Normal to inspection, nondistended, normoactive bowel sounds present and non-tender Extremity: COMMON NORMALS: no pedal edema Neuro: COMMON NORMALS: patient oriented x3 Psych: COMMON NORMALS: mental status grossly normal Urinary Catheter Management: Ramirez: Cath Placed During This Visit: yes, but has since been removed by the nurse Reason for Continuing Indwelling Catheter: Decision to DC Catheter Urinary Catheter Date of Insertion: 01/17/25 Urinary Catheter Time of Insertion: 00:30 Date Urinary Catheter Removed: 01/20/25 Time Urinary Catheter Discontinued: 12:00 Data 01/21/25 04:06 01/21/25 04:06 A&P Assessment and plan 1. Acute delirium: 2. Polysubstance abuse: 3. Altered mental status: 4. CAMMY (acute kidney injury): 5. Leukocytosis: 6. Acute hypoxic respiratory failure: 7. Increased anion gap metabolic acidosis: 8. Transaminitis: 9. Urinary tract infection: 10. Pneumonia: Plan: 40-year-old lady with a past medical history of asthma, currently brought to the hospital with acute delirium, altered mental status severe agitation which persisted and spite of receiving ketamine and Versed. Eventually patient needed to be intubated to prevent bodily harm and for airway protection. Acute hypoxic respiratory failure - Extubated onto nasal cannula, now on room air -History of asthma -sputum showing Klebsiella pneumonia, with sepsis secondary to pneumonia Plan -extubated nasal cannula, on room air -DuoNeb, budesonide - Currently on Levaquin, transition to p.o. - Monitor respiratory status closely - Monitor mentation off sedation - Transition to p.o. prednisone - 1 dose IV Lasix today Sepsis, resolved - Patient has had soft blood pressures in the emergency room, in ICU - Follow-up blood cultures -sputum culture, shows gram negative -Urine culture shows ecoli - COVID negative - continue cefepime Pneumonia - Gram-negative sputum culture, Klebsiella pneumonia - Continue p.o. Levaquin - DuoNeb, budesonide Klebsiella pneumonia ESBL UTI - Continue Levaquin for 5 days Acute encephalopathy, resolved - Concerns for acute delirium - Urine toxicology screen positive for methamphetamine, marijuana - Neurochecks - NIH stroke scale Increased anion gap and metabolic acidosis resolved - Lactic acid within normal limits - Blood sugars reasonable - IV hydration Acute kidney injury, stopped, resolved Leukocytosis - Etiology secondary to UTI, negative pneumonia - Follow blood cultures -urine culture ecoli -sputum showing gram neagtive - For now continue Continue Cefepime Methamphetamine abuse Marijuana abuse Transaminitis, - Monitor Hyperammonemia - Will monitor DVT prophylaxis heparin 5000 every 12 hours full code. PDMP PDMP Reviewed: Not Reviewed Attestations 2 Medical Necessity Statement*: Patient requires hospitalization for Klebsiella pneumoniae UTI, Klebsiella pneumonia, shortness of breath, Diagnoses Acute delirium R41.0 Polysubstance abuse F19.10 Altered mental status R41.82 CAMMY (acute kidney injury) N17.9 Leukocytosis D72.829 Acute hypoxic respiratory failure J96.01 Increased anion gap metabolic acidosis E87.29 Transaminitis R74.01 Urinary tract infection N39.0 Pneumonia J18.9
[2025-01-22 05:51] VITALS: BP 125/75; PULSE 95; RESP 21; O2SAT 97
[2025-01-22] MEDS: polyethylene glycol 3350 Pkt 17 gm PO (08:37)
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
[2025-01-22 14:00] VITALS: BP 143/78; PULSE 69; RESP 16; TEMP 36.8; O2SAT 100
[2025-01-22 20:14] VITALS: BP 148/85; PULSE 76; RESP 16; TEMP 36.9; O2SAT 97
[2025-01-23 06:00] VITALS: BP 146/91; PULSE 80; RESP 16; TEMP 36.5
[2025-01-23] MEDS: polyethylene glycol 3350 Pkt 17 gm PO (09:20)
[2025-01-23 13:04] VITALS: BP 160/90; PULSE 72; RESP 22; TEMP 36.6; O2SAT 100
[2025-01-23 19:48] VITALS: BP 114/67; PULSE 77; RESP 18; TEMP 36.5; O2SAT 97
--- NOTE | 2025-01-23 19:51 | P.NPUPN_ITS ---
Subjective NPU 2 Subjective: Patient presented today reporting that she thinks she is doing better in general. Reporting that she continues to have a plan to go to [facility] in [place]. She reports however that she needs to go to the [employer] as well and endorses that as a second possibility or plan to be, [facility]. She reports she has a fianc? who says he will give her a ride if necessary and she was hopeful for discharge tomorrow. We discussed that we would meet with the social work team and then consider discharge possibilities. Mental Status Exam 2 MSE Comments: This is an obese white female in hospital scrubs with limited grooming but adequate eye contact. No abnormal movements except for mild psychomotor agitation. Mostly cooperative with exam in mild distress. Speech was more normal rate and normal volume. Mood described as better, affect appeared euthymic. Thought process linear. Thought content: Patient denies suicidal or homicidal ideation, there were no delusions reported or noted, she did not appear to be attending to internal stimuli. Attention and concentration were intact and memory appeared reliable but none were formally tested. She is alert and oriented to her 3. Insight, judgment and impulse control are limited. Vitals/I&O/Wt Last Vital Signs Temp 97.7 F 01/23/25 19:48 Pulse 77 01/23/25 19:48 Resp 18 01/23/25 19:48 BP 114/67 01/23/25 19:48 Pulse Ox 97 01/23/25 19:48 O2 Del Method Room Air 01/23/25 19:48 O2 Flow Rate 1 01/20/25 15:00 FiO2 30 01/18/25 10:15 Physical Exam 2 Urinary Catheter Management: Ramirez: Cath Placed During This Visit: yes, but has since been removed by the nurse Reason for Continuing Indwelling Catheter: Decision to DC Catheter Urinary Catheter Date of Insertion: 01/17/25 Urinary Catheter Time of Insertion: 00:30 Date Urinary Catheter Removed: 01/20/25 Time Urinary Catheter Discontinued: 12:00 Data NPU 01/21/25 04:06 01/21/25 04:06 A&P Assessment and plan 1. Drug-induced psychotic disorder: 2. Borderline personality disorder: 3. Major depressive disorder, recurrent severe without psychotic features: 4. Post-traumatic stress disorder, chronic: Plan: 40-year-old female with a past history of an anxiety disorder, and unspecified mood disorder and borderline personality disorder along with continued use of multiple substances currently on a 96-hour hold and very agitated. #1.? Engage patient in individual milieu and group therapy. #2?? Recommend sober living treatment at the highest level of care to which the patient is willing to commit once patient is stabilized and transferred to Psychiatry unit. Patient considering going to [facility]. #3??? Continue use of haldol to stabilize for aggression. ? #4?? TO-15 minute checks? #5?? Will attempt to gather collateral information, #6 Restart home medications. PDMP PDMP Reviewed: Not Reviewed Involuntary Hold Information 2 Hold Status: Legal Status: 96 Hour Hold Date/Time Hold Expires: 01/24/25 at 1315 Attestations NPU 2 Medical Necessity Statement*: Inpatient hospitalization is medically necessary and the clinically appropriate intervention at this time. We will monitor/initiate medications and make changes as indicated. Likely length of stay 1-3 days. Coding Level of Care Code Acute Code for Chg Fwd Diagnoses Drug-induced psychotic disorder F19.959 Borderline personality disorder F60.3 Major depressive disorder, recurrent severe without psychotic features F33.2 Post-traumatic stress disorder, chronic F43.12
--- NOTE | 2025-01-24 05:34 | PC.NURSE ---
pt vaginal pain pt states she has vaginal pain that she thinks was form 'a meth pipe in her vagina' she would like to speak to the physician about this.
[2025-01-24 06:00] VITALS: BP 110/72; PULSE 66; RESP 16; TEMP 37.3; O2SAT 96
[2025-01-24] MEDS: polyethylene glycol 3350 Pkt 17 gm PO (08:09)
[2025-01-24 13:31] VITALS: BP 114/71; PULSE 89; RESP 16; TEMP 37.3; O2SAT 98
--- NOTE | 2025-01-24 13:32 | P.NPUPN_ITS ---
Subjective NPU 2 Subjective: Patient presented today reporting that things are going pretty well. She endorsed that she and her significant other are going go to the [facility] system. She discussed them wanting to go to the [employer] Security department initially and then go to this program. She discussed the possibility of discharge today but we discussed how [facility] [employer] works and that we should focus on the possibility of getting her discharged tomorrow morning so that she can be there in time but we also need to find out from the social work team about the interview process because that has to happen first. She denied any side effects of medication. Mental Status Exam 2 MSE Comments: This is an obese white female in hospital scrubs with limited grooming but adequate eye contact. No abnormal movements except for mild psychomotor agitation. Mostly cooperative with exam in mild distress. Speech was more normal rate and normal volume. Mood described as better, affect appeared euthymic. Thought process linear. Thought content: Patient denies suicidal or homicidal ideation, there were no delusions reported or noted, she did not appear to be attending to internal stimuli. Attention and concentration were intact and memory appeared reliable but none were formally tested. She is alert and oriented to her 3. Insight, judgment and impulse control are limited. Vitals/I&O/Wt Last Vital Signs Temp 99.2 F 01/24/25 06:00 Pulse 66 01/24/25 06:00 Resp 16 01/24/25 06:00 BP 110/72 01/24/25 06:00 Pulse Ox 96 01/24/25 06:00 O2 Del Method Room Air 01/24/25 06:00 O2 Flow Rate 1 01/20/25 15:00 FiO2 30 01/18/25 10:15 Physical Exam 2 Urinary Catheter Management: Ramirez: Cath Placed During This Visit: yes, but has since been removed by the nurse Reason for Continuing Indwelling Catheter: Decision to DC Catheter Urinary Catheter Date of Insertion: 01/17/25 Urinary Catheter Time of Insertion: 00:30 Date Urinary Catheter Removed: 01/20/25 Time Urinary Catheter Discontinued: 12:00 Data NPU 01/21/25 04:06 01/21/25 04:06 A&P Assessment and plan 1. Drug-induced psychotic disorder: 2. Borderline personality disorder: 3. Major depressive disorder, recurrent severe without psychotic features: 4. Post-traumatic stress disorder, chronic: Plan: 40-year-old female with a past history of an anxiety disorder, and unspecified mood disorder and borderline personality disorder along with continued use of multiple substances currently on a 96-hour hold and very agitated. #1.? Engage patient in individual milieu and group therapy. #2?? Recommend sober living treatment at the highest level of care to which the patient is willing to commit once patient is stabilized and transferred to Psychiatry unit. Patient considering going to [facility]. Had her paperwork filled out for [facility] but still needs her interview. #3??? Continue use of haldol to stabilize for aggression. ? #4?? TO-15 minute checks? #5?? Will attempt to gather collateral information, #6 Restart home medications. PDMP PDMP Reviewed: Not Reviewed Involuntary Hold Information 2 Hold Status: Legal Status: 96 Hour Hold Date/Time Hold Expires: 01/24/25 at 1315 Attestations NPU 2 Medical Necessity Statement*: Inpatient hospitalization is medically necessary and the clinically appropriate intervention at this time. We will monitor/initiate medications and make changes as indicated. Likely length of stay 1-3 days. Coding Level of Care Code Acute Code for [facility] Fwd Diagnoses Drug-induced psychotic disorder F19.959 Borderline personality disorder F60.3 Major depressive disorder, recurrent severe without psychotic features F33.2 Post-traumatic stress disorder, chronic F43.12
[2025-01-24 19:39] VITALS: BP 107/51; PULSE 86; RESP 17; TEMP 36.5; O2SAT 97
[2025-01-24 22:11] LABS: Add Urine Microscopic? YES; Glucose Urine UA 3+ (Normal); Nitrate Urine Negative (Negative); Specific Gravity, Urine 1.029 (1.005-1.030)
[2025-01-25 05:22] VITALS: BP 116/67; PULSE 74; RESP 16; TEMP 36.8; O2SAT 97
[2025-01-25] MEDS: polyethylene glycol 3350 Pkt 17 gm PO (08:20)
[2025-01-25 12:52] VITALS: BP 98/56; PULSE 81; RESP 16; TEMP 36.9; O2SAT 98
--- NOTE | 2025-01-25 15:50 | P.NPUPN_ITS ---
Subjective NPU 2 Subjective: Patient presented today reporting that she is doing fine. She is working with the social work team looking at [facility] as well as some other possibilities. She reports that she has not had success but she will continue to try. She reports she got a work with her partner who also needs placement and they will try to find some facility close by. She reports that she is pleased with how this they went and she was able to contract for safety. She denied any side effects to her medication. Mental Status Exam 2 MSE Comments: This is an obese white female in hospital scrubs with limited grooming but adequate eye contact. No abnormal movements except for mild psychomotor agitation. Cooperative with exam in mild distress. Speech was more normal rate and normal volume. Mood described as better, affect appeared euthymic. Thought process linear. Thought content: Patient denies suicidal or homicidal ideation, there were no delusions reported or noted, she did not appear to be attending to internal stimuli. Attention and concentration were intact and memory appeared reliable but none were formally tested. She is alert and oriented to her 3. Insight, judgment and impulse control are limited. Vitals/I&O/Wt Last Vital Signs Temp 98.4 F 01/25/25 12:52 Pulse 81 01/25/25 12:52 Resp 16 01/25/25 12:52 BP 98/56 01/25/25 12:52 Pulse Ox 98 01/25/25 12:52 O2 Del Method Room Air 01/25/25 12:52 O2 Flow Rate 1 01/20/25 15:00 FiO2 30 01/18/25 10:15 Physical Exam 2 Urinary Catheter Management: Ramirez: Cath Placed During This Visit: yes, but has since been removed by the nurse Reason for Continuing Indwelling Catheter: Decision to DC Catheter Urinary Catheter Date of Insertion: 01/17/25 Urinary Catheter Time of Insertion: 00:30 Date Urinary Catheter Removed: 01/20/25 Time Urinary Catheter Discontinued: 12:00 Data NPU 01/21/25 04:06 01/21/25 04:06 A&P Assessment and plan 1. Drug-induced psychotic disorder: 2. Borderline personality disorder: 3. Major depressive disorder, recurrent severe without psychotic features: 4. Post-traumatic stress disorder, chronic: Plan: 40-year-old female with a past history of an anxiety disorder, and unspecified mood disorder and borderline personality disorder along with continued use of multiple substances currently on a 96-hour hold and very agitated. #1.? Engage patient in individual milieu and group therapy. #2?? Recommend sober living treatment at the highest level of care to which the patient is willing to commit once patient is stabilized and transferred to Psychiatry unit. Patient considering going to [facility]. Had her paperwork filled out for [facility] but still needs her interview. #3??? Continue use of haldol to stabilize for aggression. ? #4?? TO-15 minute checks? #5?? Will attempt to gather collateral information, #6 Restart home medications. PDMP PDMP Reviewed: Not Reviewed Involuntary Hold Information 2 Hold Status: Legal Status: 96 Hour Hold Date/Time Hold Expires: 01/24/25 at 1315 Attestations NPU 2 Medical Necessity Statement*: Inpatient hospitalization is medically necessary and the clinically appropriate intervention at this time. We will monitor/initiate medications and make changes as indicated. Likely length of stay 1 day. Coding Level of Care Code Acute Code for [facility] Fwd Diagnoses Drug-induced psychotic disorder F19.959 Borderline personality disorder F60.3 Major depressive disorder, recurrent severe without psychotic features F33.2 Post-traumatic stress disorder, chronic F43.12
[2025-01-25 20:49] VITALS: BP 100/60; PULSE 76; RESP 16; TEMP 37; O2SAT 97
[2025-01-26 06:00] VITALS: BP 112/76; PULSE 100; RESP 16; TEMP 36.7; O2SAT 98
[2025-01-26] MEDS: polyethylene glycol 3350 Pkt 17 gm PO (08:07)
--- NOTE | 2025-01-26 08:56 | NUR.SHIFT ---
Pt states that she did not sleep good last night. She rates her anxiety an 8/10 and depression 7/10. No reports of SI/HI or hallucinations. She is very tremulous on assessment. She rates her vaginal pain a 10/10. She states that she has had a yeast infection that she took a Diflucan for last night, but states that it is really hurting. This nurse and Maritza RN will visually inspect and report back to Dr. Love. She is calm and cooperative on assessment.
[2025-01-26 11:50] VITALS: BP 114/76; PULSE 97; RESP 22; TEMP 36.5; O2SAT 97
== END 2025-01-26 12:24 | disposition home or self-care (01) | DRG 896 ==
LOC: ER 22:04 → ER IP 01-17 00:36 → ICU 01-17 10:41 → NP 01-21 13:10
PROVIDERS: Internal Medicine; Psychiatry & Neurology Psychiatry; Admitting Provider Student in an Organized Health Care Education/Training Program; Emergency Provider Family Medicine; PCP Family Medicine; Visit Provider Family Medicine
DX: F15.159 Other stimulant abuse with stimulant-induced psychotic disorder, unspecified (principal); A41.9 Sepsis, unspecified organism; G93.41 Metabolic encephalopathy; J96.01 Acute respiratory failure with hypoxia; J15.0 Pneumonia due to Klebsiella pneumoniae; R65.21 Severe sepsis with septic shock; N17.9 Acute kidney failure, unspecified; Z59.00 Homelessness unspecified; E87.20 Acidosis, unspecified; E72.20 Disorder of urea cycle metabolism, unspecified; N39.0 Urinary tract infection, site not specified; F33.2 Major depressive disorder, recurrent severe without psychotic features; Z16.12 Extended spectrum beta lactamase (ESBL) resistance; F43.12 Post-traumatic stress disorder, chronic; F60.3 Borderline personality disorder; Z87.891 Personal history of nicotine dependence; Z88.1 Allergy status to other antibiotic agents; Z88.0 Allergy status to penicillin; J45.909 Unspecified asthma, uncomplicated; Z83.3 Family history of diabetes mellitus; Z80.3 Family history of malignant neoplasm of breast; Z80.1 Family history of malignant neoplasm of trachea, bronchus and lung; Z80.49 Family history of malignant neoplasm of other genital organs; Z82.49 Family history of ischemic heart disease and other diseases of the circulatory system; Z83.49 Family history of other endocrine, nutritional and metabolic diseases; F12.10 Cannabis abuse, uncomplicated; E86.0 Dehydration; R74.01 Elevation of levels of liver transaminase levels; Z91.419 Personal history of unspecified adult abuse; Z78.1 Physical restraint status; E66.9 Obesity, unspecified; Z68.34 Body mass index [BMI] 34.0-34.9, adult; F41.9 Anxiety disorder, unspecified; F41.0 Panic disorder [episodic paroxysmal anxiety]; Z88.2 Allergy status to sulfonamides
CPT/HCPCS: 36415; 36416; 36573; 36592; 36600; 51702; 70450; 71045; 72125; 80051; 80053; 80175; 80306; 80307; 81001; 82140; 82330; 82607; 82746; 82803; 82805; 82962; 83605; 83735; 83880; 84145; 84146; 84443; 84484; 84703; 85025; 85651; 86140; 86592; 86705; 86706; 86709; 86803; 87040; 87070; 87077; 87086; 87186; 87205; 87340; 87637; 87806; 92523; 92526; 92610; 93005; 93970; 94002; 94003; 94640; 94799; 96365; 96372; 96375; 96376; 97150; 97165; 99291; 99292; A4570; C1751; J0692; J0696; J1630; J1644; J1938; J1956; J2060; J2250; J2405; J2470; J2704; J2919; J3010; J3372; J3373; J3490; J7030; J7042; J7512; J7613; J9999